=== PATIENT | male | born 1945 | race Caucasian/White ===

== ENCOUNTER 2018-05-11 21:44 | Emergency (ER) | payer MEDICARE, OTHER ==
[~2018-05-11] VITALS: Ht 185.4 cm; Wt 100.1 kg
[~2018-05-11 21:44] MED LIST: ASP81TEC PO; DIOVAN; FEXO1TAB49; HCTZ12.5T PO; LOSA25TA5 PO; NEBI5TAB8 PO; OMEG-12 PO; OMG1KC PO; PNT40TEC PO
[2018-05-11] MEDS ORDERED: L.E.T. SYRINGE 5 ML ONE (21:50)
[2018-05-11] MEDS ORDERED: L.E.T. SYRINGE 5 ML TOP ONE ×2 (22:00→22:45)
[2018-05-11] MEDS ORDERED: hydrALAZINE (APESOLINE) 20 MG/ML VIAL IV ONE (22:00)
--- NOTE | 2018-05-11 22:01 | ED EENT ---
History of Present Illness General Stated Complaint: L EAR BLEEDING Source: patient History of Present Illness Date Seen by Provider: May 11, 2018 Time Seen by Provider: 21:48 Initial Comments PT ARRIVES VIA POV FROM HOME C/O BLEEDING FROM LEFT EAR--BEGAN AROUND 2100 TONIGHT PT HAD A SKIN CANCER REMOVED FROM LEFT EAR AROUND [address] BLANCHARD. BEGAN HAVING SOME PAIN TO AREA EARLIER TONIGHT DENIES BUMPING THE EAR, ETC. PT STATES HE HAS NOT TAKEN HIS ASPIRIN FOR THE LAST WEEK PT HAS HISTORY OF HTN AND TAKES BP MEDICATIONS IN THE EVENING AND TOOK HIS NORMAL DOSE AROUND 2100 TONIGHT. NO HISTORY OF EXCESSIVE BLEEDING PCP: DR. DAVIS Allergies and Home Medications Allergies Coded Allergies: No Known Drug Allergies (Verified , 05/09/08) Home Medications Losartan Potassium 25 Mg Tablet, 25 MG PO HS, (Reported) Pelican-3/Dha/Epa/Fish Oil 1 Each Capsule.dr, 1 EACH PO DAILY, (Reported) Pantoprazole Sod 40 Mg Tab, 40 MG PO DAILY, (Reported) Patient Home Medication List Home Medication List Reviewed: Yes Review of Systems Review of Systems Constitutional: no symptoms reported Ears: See HPI Skin: see HPI Neurological: No Symptoms Reported Hematologic/Lymphatic: See HPI Past Sqqhyin-Rhlqzk-Wmbtzu Hx Patient Social History Recent Foreign Travel: No Contact w/Someone Who Travel: No Immunizations Up To Date Date of Influenza Vaccine: May 20, 2011 Past Medical History Surgeries: Yes (SKIN CANCER 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 BLANCHARD) Cardiac: Yes Hypertension Reproductive Disorders: No Cancer: Yes Skin Did You Recieve Any Treatments: Yes (SKIN CANCER REMOVED FROM LEFT EAR --DR. BLANCHARD) What Type of Treatment Did You: Surgical Intervention Physical Exam Vital Signs Vital Signs - First Documented 05/11/18 05/12/18 21:47 00:53 Temp 98.5 Pulse 88 Resp 19 B/P (MAP) 201/105 (137) Pulse Ox 99 Height, Weight, BMI Height: '" Weight: lbs. oz. kg; BMI Method:Stated General Appearance: WD/WN, no apparent distress Ears: bilateral ear other (LEFT EXTERNAL EAR WITH PROFUSE BLEEDING--HAS BLED THROUGH ALL DRESSINGS AND LARGE CLOTS HANGING FROM EAR. ) Neurologic/Psychiatric: moisture meter reader II-XII nml as tested, no motor/sensory deficits, alert, normal mood/affect, oriented x 3 Skin: normal color, warm/dry Procedures/Interventions Wound Location: Ears (LEFT EAR) Anesthesia: Lidocaine w/ Epi LET APPLIED TO WOUND, FOLLOWED BY 2% LIDOCAINE WITH EPI ( SMALL AMOUNT ) BLEEDING AREA CAUTERIZED WITH FINE TIP ELECTROCAUTERY, WITH ALL BLEEDING STOPPED. WOUND DRESSED WITH STERILE DRESSING NO FURTHER BLEEDING Progress/Results/Core Measures Results/Orders Lab Results Laboratory Tests Test 05/11/18 21:57 Range/Units White Blood Count 8.3 4.3-11.0 10^3/uL Red Blood Count 5.47 4.35-5.85 10^6/uL Hemoglobin 16.4 13.3-17.7 G/DL Hematocrit 45 40-54 % Mean Corpuscular Volume 83 80-99 FL Mean Corpuscular Hemoglobin 30 25-34 PG Mean Corpuscular Hemoglobin Concent 36 32-36 G/DL Red Cell Distribution Width 13.3 10.0-14.5 % Platelet Count 208 130-400 10^3/uL Mean Platelet Volume 9.7 7.4-10.4 FL Neutrophils (%) (Auto) 47 42-75 % Lymphocytes (%) (Auto) 38 12-44 % Monocytes (%) (Auto) 14 H 0-12 % Eosinophils (%) (Auto) 1 0-10 % Basophils (%) (Auto) 1 0-10 % Neutrophils # (Auto) 3.9 1.8-7.8 X 10^3 Lymphocytes # (Auto) 3.1 1.0-4.0 X 10^3 Monocytes # (Auto) 1.2 H 0.0-1.0 X 10^3 Eosinophils # (Auto) 0.0 0.0-0.3 10^3/uL Basophils # (Auto) 0.0 0.0-0.1 10^3/uL Prothrombin Time 12.0 L 12.2-14.7 SEC INR Comment 0.9 0.8-1.4 Activated Partial Thromboplast Time 28 24-35 SEC My Orders Orders - RAMESH RODRIGUEZ DO Saline Lock/Iv-Start (05/11/18 21:51) Hydralazine Injection (Apresoline Inject (05/11/18 22:00) Let Solution (Let Solution) (05/11/18 21:50) Let Solution (Let Solution) (05/11/18 22:00) Cbc With Automated Diff (05/11/18 22:02) Protime With Inr (05/11/18 22:02) Partial Thromboplastin Time (05/11/18 22:02) Saline Lock/Iv-Start (05/11/18 22:22) Ns Iv 1000 Ml (Sodium Chloride 0.9%) (05/11/18 22:22) Ns Iv 1000 Ml (Sodium Chloride 0.9%) (05/11/18 22:18) Let Solution (Let Solution) (05/11/18 22:45) Lidocaine 2% Pf 5 Ml (Xylocaine 2% Pf) (05/12/18 00:01) Lidocaine/Epi 2% 1:100,000 (Xylocaine/Ep (05/12/18 00:03) Wound Dressing-Ed (05/12/18 00:26) Clonidine Tablet (Catapres Tablet) (05/12/18 00:45) Clonidine Tablet (Catapres Tablet) (05/12/18 00:28) Medications Given in ED Current Medications Medications Dose Ordered Sig/Alana Route Start Time Stop Time Status Last Admin Dose Admin Clonidine HCl 0.1 mg ONCE ONCE PO 05/12/18 00:45 05/12/18 00:46 DC 05/12/18 00:32 0.1 MG Hydralazine HCl 10 mg ONCE ONCE IV 05/11/18 22:00 05/11/18 22:01 DC 05/11/18 22:01 10 MG Lidocaine/ Epinephrine 20 ml STK-MED ONCE .ROUTE 05/12/18 00:03 05/12/18 00:08 DC 05/12/18 00:09 20 ML Sodium Chloride 1,000 ml @ 0 mls/hr Q0M ONCE IV 05/11/18 22:22 05/11/18 22:23 DC 05/11/18 22:27 999 MLS/HR Tetracaine/ Epinephrine/ Lidocaine 1 ea ONCE ONCE TOP 05/11/18 22:00 05/11/18 22:01 DC 05/11/18 22:01 1 EA Tetracaine/ Epinephrine/ Lidocaine 1 ea ONCE ONCE TOP 05/11/18 22:45 05/11/18 22:46 DC 05/11/18 22:53 1 EA Vital Signs/I&O 05/11/18 05/12/18 21:47 00:53 Temp 98.5 Pulse 88 88 Resp 19 19 B/P (MAP) 201/105 (137) 161/98 (119) Pulse Ox 99 05/12/18 00:00 Intake Total 1000 ml Balance 1000 ml Progress Progress Note : Progress Note BP ON ARRIVAL > 200/100 --GIVEN HYDRALAZINE--SIGNIFICANT DROP IN BP TO 80'S/50'S --GIVEN FLUID BOLUS WITH QUICK RETURN TO NORMAL BP DIRECT PRESSURE AND LET APPLIED TO AREA, AND BLEEDING HAS STOPPED COMPLETELY WOUND CLEANSED WITH STERILE SALINE AND IS INTACT. ACTUALLY 2 WOUNDS ARE PRESENT. LARGER/SUTURED WOUND IS ACTUALLY SUPERIOR TO TRAGUS, WITH AN APPROXIMATELY 5 MM DIAMETER AREA THAT APPEARS TO BE A SHAVED EXCISION AREA, IN THE SUPERIOR ASPECT OF THE HELIX--THIS IS THE AREA THAT IS BLEEDING. PT WAS BEING DISMISSED, WAS NOTED THAT AREA HAD BEGAN TO BLEED AGAIN AND BLED THROUGH THICK DRESSING. AT THIS POINT, PRESSURE AND LET WERE AGAIN APPLIED, AND THEN THE AREA WAS CAUTERIZED--SEE PROCEDURE NOTE. BP IS BACK UP TO 185/100 PT GIVEN CLONIDINE BP DOWN TO 159/90 AT DISMISSAL NO BLEEDING AT TIME OF DISMISSAL . Departure Communication (Admissions) 2200--SPOKE WITH DR. BLANCHARD, AGREES WITH PLAN OF CARE. IF NEEDED, HE CAN SEE PT IN OFFICE TOMORROW, OTHERWISE IF NO FURTHER BLEEDING, HE WILL SEE PT FOR HIS ROUTINE FOLLOW UP APPOINTMENT Impression Primary Impression: Post-op bleeding Additional Impression: Uncontrolled hypertension Disposition: HOME, SELF-CARE Condition: Improved Departure-Patient Inst. Referrals: MANPREET BLANCHARD MD, FLOYD R MD (PCP/Family) Primary Care Physician Patient Instructions: Bleeding After Surgery, High Blood Pressure (DC) Add. Discharge Instructions: CONTINUE ALL YOUR POST OP INSTRUCTIONS FROM DR. BLANCHARD APPLY DIRECT PRESSURE IF BLEEDING RETURNS RETURN TO ER IF BLEEDING IS SEVERE FOLLOW UP WITH DR. BLANCHARD TOMORROW IF AREA CONTINUES TO BLEED, OTHERWISE KEEP YOUR REGULAR FOLLOW UP APPOINTMENT RAMESH RODRIGUEZ DO May 11, 2018 22:01
[2018-05-11 22:08] LABS: BASOPHILS % (AUTO) 1 % (0-10); EOSINOPHILS % (AUTO) 1 % (0-10); HEMATOCRIT 45 % (40-54); HEMOGLOBIN 16.4 G/DL (13.3-17.7); LYMPHOCYTES # (AUTO) 3.1 X 10^3 (1.0-4.0); LYMPHOCYTES % (AUTO) 38 % (12-44); MEAN CORPUSCULAR HEMOGLOBIN 30 PG (25-34); MEAN CORPUSCULAR HGB CONC 36 G/DL (32-36); MEAN CORPUSCULAR VOLUME 83 FL (80-99); MEAN PLATELET VOLUME 9.7 FL (7.4-10.4); MONOCYTES # (AUTO) 1.2 X 10^3 (0.0-1.0); MONOCYTES % (AUTO) 14 % (0-12); NEUTROPHILS # (AUTO) 3.9 X 10^3 (1.8-7.8); NEUTROPHILS % (AUTO) 47 % (42-75); PLATELET COUNT 208 10^3/uL (130-400); RED BLOOD COUNT 5.47 10^6/uL (4.35-5.85); RED CELL DISTRIBUTION WIDTH 13.3 % (10.0-14.5); WHITE BLOOD COUNT 8.3 10^3/uL (4.3-11.0)
[2018-05-11] MEDS ORDERED: NS IV 1000 ML 1,000 ML ONE (22:18)
[2018-05-11 22:21] LABS: INR 0.9 (0.8-1.4)
[2018-05-11] MEDS ORDERED: NS IV 1000 ML 1,000 ML IV ONE (22:22)
[2018-05-12] MEDS ORDERED: LIDOCAINE PF 2% 5 ML (XYLOCAINE) VIAL ONE (00:01)
[2018-05-12] MEDS ORDERED: LIDOCAINE/EPI 2% 1:100,00 (XYLOCAINE) 20 ML VIAL ONE (00:03)
[2018-05-12] MEDS ORDERED: cloNIDine 0.1 MG (CATAPRES) TAB ONE (00:28)
[2018-05-12] MEDS ORDERED: cloNIDine 0.1 MG (CATAPRES) TAB PO ONE (00:45)
[2018-05-12 00:53] VITALS: BP 161/98
== END 2018-05-12 00:55 | disposition home or self-care (01) ==
LOC: EDUNIT# 21:44 → ER 21:45
DX: H95.41 Postprocedural hemorrhage of ear and mastoid process following a procedure on the ear and mastoid process (principal); I10 Essential (primary) hypertension; Z85.828 Personal history of other malignant neoplasm of skin; Z98.890 Other specified postprocedural states
CPT/HCPCS: 36415; 85025; 85610; 85730; 96374

== ENCOUNTER 2018-06-13 09:35 | Outpatient (CLI) | payer MEDICARE, OTHER ==
[~2018-06-13] VITALS: Ht 185.4 cm; Wt 101.9 kg
[2018-06-13] MEDS ORDERED: HYDR25TA4 PO (09:52)
[2018-06-13] MEDS ORDERED: LOSA50TA7 PO (09:52)
[2018-06-13] MEDS ORDERED: PANT40TA3 PO (09:52)
[2018-06-13] MEDS ORDERED: KRIL1CAP22 PO (09:52)
[2018-06-13] MEDS ORDERED: CETI10TA17 PO (09:54)
[2018-06-13] MEDS ORDERED: ASPI-586 PO (09:54)
[2018-06-13 09:57] VITALS: BP 153/96
[2018-06-13 10:43] LABS: BASOPHILS # (AUTO) 0.1 10^3/uL (0.0-0.1); BASOPHILS % (AUTO) 1 % (0-10); EOSINOPHILS % (AUTO) 0 % (0-10); HEMATOCRIT 46 % (40-54); HEMOGLOBIN 15.4 G/DL (13.3-17.7); LYMPHOCYTES # (AUTO) 2.3 X 10^3 (1.0-4.0); LYMPHOCYTES % (AUTO) 29 % (12-44); MEAN CORPUSCULAR HEMOGLOBIN 28 PG (25-34); MEAN CORPUSCULAR HGB CONC 34 G/DL (32-36); MEAN CORPUSCULAR VOLUME 82 FL (80-99); MEAN PLATELET VOLUME 9.7 FL (7.4-10.4); MONOCYTES # (AUTO) 0.9 X 10^3 (0.0-1.0); MONOCYTES % (AUTO) 11 % (0-12); NEUTROPHILS # (AUTO) 4.6 X 10^3 (1.8-7.8); NEUTROPHILS % (AUTO) 59 % (42-75); PLATELET COUNT 218 10^3/uL (130-400); RED BLOOD COUNT 5.56 10^6/uL (4.35-5.85); RED CELL DISTRIBUTION WIDTH 12.9 % (10.0-14.5); WHITE BLOOD COUNT 7.8 10^3/uL (4.3-11.0)
[2018-06-13 10:55] LABS: PROTHROMBIN TIME PATIENT 13.2 SEC (12.2-14.7)
[2018-06-13 11:00] LABS: BUN/CREATININE RATIO 16; CALCIUM 9.8 MG/DL (8.5-10.1); CARBON DIOXIDE 29 MMOL/L (21-32); CHLORIDE 101 MMOL/L (98-107); CREATININE SERUM 1.01 MG/DL (0.60-1.30); GFR ESTIMATED > 60; GLUCOSE 99 MG/DL (70-105); POTASSIUM 3.3 MMOL/L (3.6-5.0); SODIUM 138 MMOL/L (135-145)
--- NOTE | 2018-06-13 12:48 | Diagnostic Imaging Report ---
Indication: Head and neck lesion, preop. Comparison: 03/20/2012 Findings: Some mild flattening of the hemidiaphragms unchanged. The heart size within normal limits. There is no vascular congestion, edema, pneumonia, effusion or pneumothorax. Impression: No acute-appearing abnormality. No change from prior. Dictated by: Dictated on workstation # [id number]
== END 2018-06-13 15:00 | disposition home or self-care (01) ==
LOC: PREOP 09:35
PROVIDERS: ATTEND Otolaryngology Otolaryngology/Facial Plastic Surgery
DX: Z01.810 Encounter for preprocedural cardiovascular examination (principal); Z01.811 Encounter for preprocedural respiratory examination; Z01.812 Encounter for preprocedural laboratory examination; Z11.2 Encounter for screening for other bacterial diseases; C44.219 Basal cell carcinoma of skin of left ear and external auricular canal
CPT/HCPCS: 36415; 71046; 80048; 85025; 85610; 87081; 93005

== ENCOUNTER 2018-06-23 06:34 | Day surgery (SDC) | payer MEDICARE, OTHER ==
[~2018-06-23] VITALS: Ht 185.4 cm; Wt 101.9 kg
[~2018-06-23 06:34] MED LIST changes: +ASPI-586 PO; +CETI10TA17 PO; +HYDR25TA4 PO; +KRIL1CAP22 PO; +LOSA50TA7 PO; +PANT40TA3 PO
[2018-06-23 07:00] VITALS: BP 181/109
[2018-06-23] MEDS ORDERED: LACTATED RINGERS 1,000 ML IV PRN (08:19)
[2018-06-23] MEDS ORDERED: fentaNYL INJECTION 100 MCG/2 ML AMP ONE (08:42)
[2018-06-23] MEDS ORDERED: MIDAZOLAM 2 MG/2 ML (VERSED) VIAL ONE (08:43)
[2018-06-23] MEDS ORDERED: SEVOFLURANE (ULTANE) 15 ML INHAL SOLN ONE ×7 (08:44→10:25)
[2018-06-23] MEDS ORDERED: LIDOCAINE PF 2% 5 ML (XYLOCAINE) VIAL ONE (08:44)
[2018-06-23] MEDS ORDERED: ROCURONIUM 10 MG/ML 5 ML SYRINGE IV ONE (08:44)
[2018-06-23] MEDS ORDERED: ONDANSETRON 4 MG/2 ML (SDV) Z0FRAN ONE (08:44)
[2018-06-23] MEDS ORDERED: proPOfol 200 MG/20 ML (DIPRIVAN) VIAL IV ONE (08:44)
[2018-06-23] MEDS ORDERED: MUPIROCIN 2% OINT 22 GM (BACTROBAN) TUBE ONE (09:23)
[2018-06-23] MEDS ORDERED: LIDOCAINE/EPI 1%-1:100,000 (XYLOCAINE) 20ML ONE (09:23)
--- NOTE | 2018-06-23 09:53 | Progress Note-Pre Operative ---
Pre-Operative Progress Note H&P Reviewed The H&P was reviewed, patient examined and no changes noted. Date Seen by Provider: Jun 23, 2018 Time Seen by Provider: 09:15 Date H&P Reviewed: Jun 23, 2018 Time H&P Reviewed: 09:15 Pre-Operative Diagnosis: Basal Cell Ca of Left Ear x 2 MANPREET BLANCHARD MD Jun 23, 2018 9:53 am
[2018-06-23] MEDS ORDERED: PHENYLEPHRINE 100 MCG/ML 10 ML (ANESTHESIA) SYR ONE (09:55)
--- NOTE | 2018-06-23 10:21 | Progress Note-Post Operative ---
Post-Operative Progess Note Surgeon (s)/Spiral Runner (s) Surgeon MANPREET BLANCHARD MD Spiral Runner n/a Pre-Operative Diagnosis Basal Cell Ca of Left Ear x 2 Post-Operative Diagnosis same Post-Op Procedure Note Date of Procedure: Jun 23, 2018 Name of Procedure Performed: Excision of Left Tragal Basal Cell cArcinoma with INtermediate repair Excision of Left Basal Cell Carcionma-anithelix Description & Findings Description and Findings: n/a Anesthesia Type get Estimated Blood Loss minimal Packing none. Specimen(s) collected/removed left tragal lesion for freozen left antihelix lesion for frozen MANPREET BLANCHARD MD Jun 23, 2018 10:21 am
[2018-06-23] MEDS ORDERED: ACETAMINOPHEN 325 MG TABLET PO PRN (10:30)
[2018-06-23] MEDS ORDERED: HYDROcodone/APAP 5 MG/325 MG (LORTAB) TAB PO PRN (10:30)
[2018-06-23] MEDS ORDERED: NEOSTIGMINE 1 MG/ML 5 ML SYRINGE ONE (10:32)
[2018-06-23] MEDS ORDERED: GLYCOPYRROLATE 0.2 MG/ML (ROBINUL) 2 ML VIAL ONE (10:32)
[2018-06-23] MEDS ORDERED: HYDROmorphone 2 MG/ML VIAL (DILAUDID) IV ONE (10:45)
[2018-06-23] MEDS ORDERED: ONDANSETRON 4 MG/2 ML (SDV) Z0FRAN IVP PRN (10:45)
[2018-06-23 11:45] VITALS: BP 143/84
[2018-06-23 12:15] VITALS: BP 138/102
[2018-06-23] MEDS ORDERED: CEPH-507 PO (12:21)
[2018-06-23] MEDS ORDERED: HYDR-3812 PO (12:21)
[2018-06-23 12:45] VITALS: BP 147/83
== END 2018-06-23 12:50 | disposition home or self-care (01) ==
LOC: SDC 06:34
PROVIDERS: ATTEND Otolaryngology Otolaryngology/Facial Plastic Surgery
DX: C44.219 Basal cell carcinoma of skin of left ear and external auricular canal (principal); L90.5 Scar conditions and fibrosis of skin; I10 Essential (primary) hypertension; K21.9 Gastro-esophageal reflux disease without esophagitis; G56.93 Unspecified mononeuropathy of bilateral upper limbs; Z79.82 Long term (current) use of aspirin; Z79.899 Other long term (current) drug therapy
CPT/HCPCS: 88304; 88305; 88331

== ENCOUNTER 2018-12-31 07:32 | Emergency (ER) | payer MEDICARE, OTHER ==
[~2018-12-31] VITALS: Ht 185.4 cm; Wt 102.1 kg
[~2018-12-31 07:32] MED LIST changes: +ASPI-983 PO; +ATOR10TA PO; +CEPH-507 PO; +HYDR-3812 PO; +LOSA50TA63 PO; -LOSA50TA7 PO
[2018-12-31 08:19] LABS: BASOPHILS % (AUTO) 0 % (0-10); EOSINOPHILS # (AUTO) 0.2 10^3/uL (0.0-0.3); EOSINOPHILS % (AUTO) 2 % (0-10); HEMATOCRIT 33 % (40-54); HEMOGLOBIN 10.5 G/DL (13.3-17.7); LYMPHOCYTES # (AUTO) 1.3 X 10^3 (1.0-4.0); LYMPHOCYTES % (AUTO) 12 % (12-44); MEAN CORPUSCULAR HEMOGLOBIN 28 PG (25-34); MEAN CORPUSCULAR HGB CONC 32 G/DL (32-36); MEAN CORPUSCULAR VOLUME 88 FL (80-99); MEAN PLATELET VOLUME 9.7 FL (7.4-10.4); MONOCYTES # (AUTO) 1.2 X 10^3 (0.0-1.0); MONOCYTES % (AUTO) 11 % (0-12); NEUTROPHILS # (AUTO) 8.8 X 10^3 (1.8-7.8); NEUTROPHILS % (AUTO) 76 % (42-75); PLATELET COUNT 246 10^3/uL (130-400); RED CELL DISTRIBUTION WIDTH 14.5 % (10.0-14.5); WHITE BLOOD COUNT 11.6 10^3/uL (4.3-11.0)
[2018-12-31 08:43] LABS: ALANINE AMINOTRANSFERASE 39 U/L (0-55); ALBUMIN 3.6 GM/DL (3.2-4.5); ALKALINE PHOSPHATASE 60 U/L (40-136); BILIRUBIN,TOTAL 0.6 MG/DL (0.1-1.0); BUN/CREATININE RATIO 18; CALCIUM 8.7 MG/DL (8.5-10.1); CARBON DIOXIDE 26 MMOL/L (21-32); CHLORIDE 103 MMOL/L (98-107); CREATININE SERUM 0.98 MG/DL (0.60-1.30); GFR ESTIMATED > 60; GLUCOSE 110 MG/DL (70-105); MAGNESIUM 1.8 MG/DL (1.8-2.4); POTASSIUM 3.7 MMOL/L (3.6-5.0); SODIUM 139 MMOL/L (135-145); TOTAL PROTEIN 5.9 GM/DL (6.4-8.2)
--- NOTE | 2018-12-31 08:58 | Diagnostic Imaging Report ---
INDICATION: Coronary artery disease and difficulty breathing. Comparison made with prior examination 12/20/2018 FINDINGS: Heart size is stable. There has been previous median sternotomy and coronary bypass graft. There are patchy bibasilar infiltrates left greater than right. There is no pleural effusion or pneumothorax. Mediastinum is unremarkable. IMPRESSION: Patchy bibasilar pulmonary infiltrates left greater than right. Dictated by: Dictated on workstation # [id number]
--- NOTE | 2018-12-31 09:05 | ED General ---
General Chief Complaint: Respiratory Problems Stated Complaint: SOA Nursing Triage Note: PT TO RM 5 BY WHEELCHAIR WITH COMPLAINT OF SOA AND CONGESTION. PT RECENTLY HAD DOUBLE BYPASS SURGERY ON 12/20/18, DISCHARGED ON 12/29/18. PT STATES HE HAS NASAL CONGESTION, COUGH, AND SOA. STATES HE WAS SEEN BY HOMEHEALTH YESTERDAY AND TOLD HER SOUNDED CONGESTED ON THE RIGHT LUNG. DENIES CHEST PAIN. Nursing Sepsis Screen: No Definite Risk Source of Information: Patient, Family Exam Limitations: No Limitations History of Present Illness Date Seen by Provider: Dec 31, 2018 Time Seen by Provider: 07:50 Initial Comments See history as above in nursing triage. Patient had cardiac bypass surgery on December 23 and was released from the hospital December 29. Today he complains of dyspnea and congestion. He has no history of pulmonary problems such as COPD. He denies chest pain. Home health reportedly had concerns about congestion on auscultation of the chest today. He has had some mild cough but no fever. Patient also has various areas of erythematous skin that he attributes to irritation from tape. He has a larger patch of tender, erythematous, blanching skin on the medial left thigh. Allergies and Home Medications Allergies Coded Allergies: No Known Drug Allergies (Unverified , 06/13/18) Home Medications Aspirin 81 Mg Tablet.dr, 81 MG PO DAILY Prescribed by: BETH ZUNIGA on 12/20/18 0756 Atorvastatin Calcium 10 Mg Tablet, 10 MG PO DAILY Prescribed by: BETH ZUNIGA on 12/20/18 0756 Azithromycin 250 Mg Tablet, 250 MG PO UD TAKE 2 TABLETS ON DAY ONE THEN TAKE 1 TABLET DAILY FOR FOUR MORE DAYS Prescribed by: LANI OAKLEY on 12/31/18 1038 Cefdinir 300 Mg Capsule, 300 MG PO BID Prescribed by: LANI OAKLEY on 12/31/18 1038 Cephalexin 500 Mg Capsule, 500 MG PO TID Prescribed by: NGUYEN MCMAHON on 06/23/18 1221 Cetirizine HCl 10 Mg Tablet, 10 MG PO DAILY, (Reported) Hydrochlorothiazide 25 Mg Tablet, 25 MG PO DAILY, (Reported) Hydrocodone/Acetaminophen 1 Each Tablet, 1-2 EACH PO Q4H PRN for PAIN-MODERATE Prescribed by: NGUYEN MCMAHON on 06/23/18 1221 Krill/Om-3/Dha/Epa/Phospho/Ast 1 Each Capsule, 1 EACH PO DAILY, (Reported) Losartan Potassium 50 Mg Tablet, 50 MG PO DAILY, (Reported) Pantoprazole Sodium 40 Mg Tablet.dr, 40 MG PO DAILY, (Reported) Patient Home Medication List Home Medication List Reviewed: Yes Review of Systems Review of Systems Constitutional: no symptoms reported EENTM: no symptoms reported Respiratory: see HPI Cardiovascular: see HPI Gastrointestinal: no symptoms reported Genitourinary: no symptoms reported Musculoskeletal: no symptoms reported Skin: see HPI Psychiatric/Neurological: No Symptoms Reported Hematologic/Lymphatic: No Symptoms Reported Past Uvcvvtc-Tlkrfv-Izqqva Hx Past Med/Social Hx: Reviewed Nursing Past Med/Soc Hx Patient Social History Alcohol Use: Denies Use Recreational Drug Use: No Smoking Status: Former Smoker Type Used: Cigars Recent Foreign Travel: No Contact w/Someone Who Travel: No Recent Infectious Disease Expo: No Recent Hopitalizations: Yes (OPEN HEART 12/20/18) Immunizations Up To Date Tetanus Booster (TDap): Less than 5yrs Date of Pneumonia Vaccine: Mar 15, 2012 Date of Influenza Vaccine: Apr 27, 2018 Seasonal Allergies Seasonal Allergies: No Past Medical History Surgeries: Yes (SKIN CANCER 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 BLANCHARD) CABG, Vasectomy Respiratory: No Cardiac: Yes (DOUBLE BYPASS) Hypertension Neurological: No Reproductive Disorders: No Sexually Transmitted Disease: No HIV/AIDS: No Genitourinary: No Gastrointestinal: Yes Gastroesophageal Reflux Musculoskeletal: No Endocrine: No Loss of Vision: Bilateral Cancer: Yes Skin Did You Recieve Any Treatments: Yes What Type of Treatment Did You: Surgical Intervention Psychosocial: No Integumentary: No Blood Disorders: No Adverse Reaction/Blood Tranf: No (N/A) Family Medical History No Pertinent Family Hx Physical Exam Vital Signs Vital Signs - First Documented 12/31/18 07:32 Temp 98.6 Pulse 78 Resp 18 B/P (MAP) 176/77 (110) Pulse Ox 97 O2 Delivery Room Air Capillary Refill : Less Than 3 Seconds Height, Weight, BMI Height: 6'1.00" Weight: 225lbs. 11.0oz. 102.000476la; 29.6 BMI Method:Stated General Appearance: No Apparent Distress, WD/WN HEENT: PERRL/EOMI, Normal ENT Inspection Neck: Normal Inspection Respiratory: Lungs Clear, No Accessory Muscle Use, No Respiratory Distress, Decreased Breath Sounds Cardiovascular: Regular Rate, Rhythm, No Edema Gastrointestinal: Non Tender, Soft Extremity: Normal Inspection, Pedal Edema Neurologic/Psychiatric: Alert, Oriented x3, No Motor/Sensory Deficits, Normal Mood/Affect, observatory director II-XII Norm as Tested Skin: Warm/Dry, Other (dressings over the chest intact. There is serous drainage on the dressings. Skin demonstrates patches of erythematous skin, especially near areas of tape. There is a larger erythematous, blanching, no warm, and tender skin on the medial left thigh.) Progress/Results/Core Measures Suspected Sepsis Recent Fever Within 48 Hours: No Infection Criteria Present: None New/Unexplained Altered Menta: No Sepsis Screen: No Definite Risk SIRS Temperature:98.6 Pulse: 78 Respiratory Rate: 18 Laboratory Tests 12/31/18 08:12: White Blood Count 11.6H Blood Pressure 176 /77 Mean: 110 Laboratory Tests 12/31/18 08:12: Creatinine 0.98, Platelet Count 246, Total Bilirubin 0.6 Results/Orders Lab Results Laboratory Tests Test 12/31/18 08:12 Range/Units White Blood Count 11.6 H 4.3-11.0 10^3/uL Red Blood Count 3.76 L 4.35-5.85 10^6/uL Hemoglobin 10.5 L 13.3-17.7 G/DL Hematocrit 33 L 40-54 % Mean Corpuscular Volume 88 80-99 FL Mean Corpuscular Hemoglobin 28 25-34 PG Mean Corpuscular Hemoglobin Concent 32 32-36 G/DL Red Cell Distribution Width 14.5 10.0-14.5 % Platelet Count 246 130-400 10^3/uL Mean Platelet Volume 9.7 7.4-10.4 FL Neutrophils (%) (Auto) 76 H 42-75 % Lymphocytes (%) (Auto) 12 12-44 % Monocytes (%) (Auto) 11 0-12 % Eosinophils (%) (Auto) 2 0-10 % Basophils (%) (Auto) 0 0-10 % Neutrophils # (Auto) 8.8 H 1.8-7.8 X 10^3 Lymphocytes # (Auto) 1.3 1.0-4.0 X 10^3 Monocytes # (Auto) 1.2 H 0.0-1.0 X 10^3 Eosinophils # (Auto) 0.2 0.0-0.3 10^3/uL Basophils # (Auto) 0.0 0.0-0.1 10^3/uL Sodium Level 139 135-145 MMOL/L Potassium Level 3.7 3.6-5.0 MMOL/L Chloride Level 103 98-107 MMOL/L Carbon Dioxide Level 26 21-32 MMOL/L Anion Gap 10 5-14 MMOL/L Blood Urea Nitrogen 18 7-18 MG/DL Creatinine 0.98 0.60-1.30 MG/DL Estimat Glomerular Filtration Rate > 60 BUN/Creatinine Ratio 18 Glucose Level 110 H 70-105 MG/DL Calcium Level 8.7 8.5-10.1 MG/DL Corrected Calcium 9.0 8.5-10.1 MG/DL Magnesium Level 1.8 1.8-2.4 MG/DL Total Bilirubin 0.6 0.1-1.0 MG/DL Aspartate Amino Transf (AST/SGOT) 23 5-34 U/L Alanine Aminotransferase (ALT/SGPT) 39 0-55 U/L Alkaline Phosphatase 60 40-136 U/L C-Reactive Protein High Sensitivity 3.34 H 0.00-0.50 MG/DL B-Type Natriuretic Peptide 717.5 H <100.0 PG/ML Total Protein 5.9 L 6.4-8.2 GM/DL Albumin 3.6 3.2-4.5 GM/DL My Orders Orders - LANI UREÑA MD BNP (12/31/18 08:00) Cbc With Automated Diff (12/31/18 08:00) Comprehensive Metabolic Panel (12/31/18 08:00) Hs C Reactive Protein (12/31/18 08:00) Magnesium (12/31/18 08:00) Ed Iv/Invasive Line Start (12/31/18 08:00) Ekg Tracing (12/31/18 08:00) Chest Pa/Lat (2 View) (12/31/18 08:00) Ceftriaxone For Iv Use (Rocephin For I (12/31/18 10:30) Furosemide Injection (Lasix Injection) (12/31/18 10:30) Potassium Chloride (Tablet) (Klor Con Ta (12/31/18 10:30) Vital Signs/I&O Capillary Refill : Less Than 3 Seconds Blood Pressure Mean: 110 Progress Note : Progress Note Patient had a moderately elevated BNP. He may have a little bit of fluid overload. Chest x-ray did not reveal overt failure. Patient was feeling better through the course of his ER stay without any particular treatment. Because of elevated BNP, a dose of Lasix IV accompanied by an oral dose of potassium was administered. Patient had not taken his Lasix at this morning. There was also some suggestion of infiltrate on the chest x-ray. Antibiotic therapy was started with Rocephin. Return precautions were discussed with patient and his family. Antibiotic therapy should also help with the erythema on the left thigh if he has cellulitis developing in that area. ECG Initial ECG Impression Date: Dec 31, 2018 Initial ECG Impression Time: 08:49 Initial ECG Rate: 73 Initial ECG Rhythm: A Fib/Flutter Comment Low voltage atrial fibrillation with no ST elevation or depression. No significant axis deviation. Diagnostic Imaging Diagonstic Imaging: Xray Plain Films/CT/US/NM/MRI: chest Comments Chest x-ray viewed by me and report reviewed. See report below: NAME: CORINA MURRY [facility] REC#: [id number] PT STATUS: REG ER : 1945 PHYSICIAN: LANI UREÑA MD ADMIT DATE: 12/31/18/ER Draft Date of Exam:12/31/18 CHEST PA/LAT (2 VIEW) INDICATION: Coronary artery disease and difficulty breathing. Comparison made with prior examination 12/20/2018 FINDINGS: Heart size is stable. There has been previous median sternotomy and coronary bypass graft. There are patchy bibasilar infiltrates left greater than right. There is no pleural effusion or pneumothorax. Mediastinum is unremarkable. IMPRESSION: Patchy bibasilar pulmonary infiltrates left greater than right. Dictated on workstation # [id number] Dict: 12/31/18 0853 Trans: 12/31/18 0857 [id number] Interpreted by: IVONNE KLEIN MD Departure Impression Primary Impression: Bilateral pneumonia Qualified Codes: J18.1 - Lobar pneumonia, unspecified organism Additional Impressions: Dyspnea Qualified Codes: R06.00 - Dyspnea, unspecified Elevated brain natriuretic peptide (BNP) level Disposition: 01 HOME, SELF-CARE Condition: Improved Departure-Patient Inst. Referrals: SUJATHA DAVIS MD (PCP/Family) Primary Care Physician Patient Instructions: Pneumonia, Adult (DC) Add. Discharge Instructions: Complete your antibiotics as prescribed. The IV dose of Lasix (furosemide) you received in the ER replaces your morning pill. You may take your other morning medications when you get home. Follow-up with your primary care provider and your surgeon next week. Return to the emergency room if you have worsening symptoms, especially if you develop fevers over 100 or worsening shortness of breath. Monitor the area of redness on your left thigh. Return to care if it is not improving with antibiotics. All discharge instructions reviewed with patient and/or family. Voiced understanding. Scripts Azithromycin (Azithromycin) 250 Mg Tablet 250 MG PO UD, #6 TAB TAKE 2 TABLETS ON DAY ONE THEN TAKE 1 TABLET DAILY FOR FOUR MORE DAYS Prov: LANI UREÑA MD 12/31/18 Cefdinir (Cefdinir) 300 Mg Capsule 300 MG PO BID, #20 CAP Prov: LANI UREÑA MD 12/31/18 Copy Copies To 1: SUJATHA DAVIS MD Copies To 2: BETH ZUNIGA MD, JOSHUA T MD Dec 31, 2018 09:05
[2018-12-31] MEDS ORDERED: cefTRIAXone FOR IV USE 1,000 MG in WATER (STERILE) FOR INJECTION 10 ML IV ONE (10:30)
[2018-12-31] MEDS ORDERED: FUROSEMIDE 40 MG/4 ML INJ (LASIX) IVP ONE (10:30)
[2018-12-31] MEDS ORDERED: KCL 10 MEQ TAB (MICRO K) PO ONE (10:30)
[2018-12-31] MEDS ORDERED: AZIT250T12 PO (10:38)
[2018-12-31] MEDS ORDERED: CEFD300C3 PO (10:38)
[2018-12-31 11:02] VITALS: BP 166/84
== END 2018-12-31 11:07 | disposition home or self-care (01) ==
LOC: EDUNIT# 07:41 → ER 07:42
DX: J18.9 Pneumonia, unspecified organism (principal); R79.89 Other specified abnormal findings of blood chemistry; I10 Essential (primary) hypertension; K21.9 Gastro-esophageal reflux disease without esophagitis; Z85.828 Personal history of other malignant neoplasm of skin; Z95.1 Presence of aortocoronary bypass graft; Z79.82 Long term (current) use of aspirin; Z87.891 Personal history of nicotine dependence; Z98.52 Vasectomy status
CPT/HCPCS: 36415; 71046; 80053; 83735; 83880; 85025; 86141; 93005; 96374; 96375

== ENCOUNTER 2019-01-09 07:16 | Inpatient (IN) | payer MEDICARE, OTHER ==
[2019-01-09] VITALS (8 sets, daily range): BP systolic 115–208; BP diastolic 76–111
[~2019-01-09] VITALS: Ht 185.4 cm; Wt 99.4 kg
[~2019-01-09 07:16] MED LIST changes: +AZIT250T12 PO; +CEFD300C3 PO
--- OUTSIDE RECORDS SUMMARY | 2019-01-09 07:21 | XMS REPORT | Continuity of Care Document ---
Author Organization Unknown Address Unknown Allergies Active Description Code Type Severity Reaction Onset Reported/Identified Relationship to Patient Clinical Status Yes No Known Drug Allergies [id number] Drug Allergy Unknown N/A 06/13/2018 Medications There is no data. 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 05/16/2018 JENNIFER DO, RAMESH K Ot Z98.890 OTHER SPECIFIED POSTPROCEDURAL STATES 05/18/2018 JENNIFER DO, RAMESH K Ot H95.41 POSTPROCEDURAL HEMORRHAGE OF EAR/MASTD F 05/18/2018 JENNIFER DO, RAMESH K Ot I10 ESSENTIAL (PRIMARY) HYPERTENSION 05/18/2018 JENNIFER DO, RAMESH K Ot 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 05/18/2018 JENNIFER DO, RAMESH K Ot Z98.890 OTHER SPECIFIED POSTPROCEDURAL STATES 06/13/2018 SANTO PITTS, MANPREET Garcia Ot C44.219 BASAL CELL CARCINOMA SKIN/ LEFT EAR AND 06/13/2018 SANTO PITTS, MANPREET Garcia Ot Z01.810 ENCOUNTER FOR PREPROCEDURAL CARDIOVASCUL 06/13/2018 SANTO PITTS, MANPREET Garcia Ot Z01.811 ENCOUNTER FOR PREPROCEDURAL RESPIRATORY 06/13/2018 MANPREET BLANCHARD MD Ot Z01.812 ENCOUNTER FOR PREPROCEDURAL LABORATORY E 06/13/2018 MANPREET BLANCHARD MD Ot Z11.2 ENCOUNTER FOR SCREENING FOR OTHER BACTER 06/23/2018 MANPREET BLANCHARD MD, Ot C44.219 BASAL CELL CARCINOMA SKIN/ LEFT EAR AND 06/23/2018 MANPREET BLANCHARD MD Ot 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 06/23/2018 MANPREET BLANCHARD MD Ot I10 ESSENTIAL (PRIMARY) HYPERTENSION 06/23/2018 MANPREET BLANCHARD MD Ot K21.9 GASTRO-ESOPHAGEAL REFLUX DISEASE WITHOUT 06/23/2018 MANPREET BLANCHARD MD Ot L90.5 SCAR CONDITIONS AND FIBROSIS OF SKIN 06/23/2018 MANPREET BLANCHARD MD Ot Z79.82 DIRECTOR ASSET (CURRENT) USE OF ASPIRIN 06/23/2018 MANPREET BLANCHARD MD Ot Z79.899 OTHER DIRECTOR ASSET (CURRENT) DRUG THERAPY 06/27/2018 MANPREET BLANCHARD MD, Ot C44.219 BASAL CELL CARCINOMA SKIN/ LEFT EAR AND 06/27/2018 MANPREET BLANCHARD MD Ot Z01.810 ENCOUNTER FOR PREPROCEDURAL CARDIOVASCUL 06/27/2018 MANPREET BLANCHARD MD Ot Z01.811 ENCOUNTER FOR PREPROCEDURAL RESPIRATORY 06/27/2018 MANPREET BLANCHARD MD Ot Z01.812 ENCOUNTER FOR PREPROCEDURAL LABORATORY E 06/27/2018 MANPREET BLANCHARD MD Ot Z11.2 ENCOUNTER FOR SCREENING FOR OTHER BACTER 06/27/2018 MANPREET BLANCHARD MD, Ot C44.219 BASAL CELL CARCINOMA SKIN/ LEFT EAR AND 06/27/2018 MANPREET BLANCHARD MD Ot 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 06/27/2018 MANPREET BLANCHARD MD Ot I10 ESSENTIAL (PRIMARY) HYPERTENSION 06/27/2018 MANPREET BLANCHARD MD Ot K21.9 GASTRO-ESOPHAGEAL REFLUX DISEASE WITHOUT 06/27/2018 MANPREET BLANCHARD MD, Ot L90.5 SCAR CONDITIONS AND FIBROSIS OF SKIN 06/27/2018 MANPREET BLANCHARD MD Ot Z79.82 DIRECTOR ASSET (CURRENT) USE OF ASPIRIN 06/27/2018 MANPREET BLANCHARD MD Ot Z79.899 OTHER GROUP HOME (CURRENT) DRUG THERAPY 06/30/2018 MANPREET BLANCHARD MD Ot C44.219 BASAL CELL CARCINOMA SKIN/ LEFT EAR AND 06/30/2018 MANPREET BLANCHARD MD Ot 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 06/30/2018 MANPREET BLANCHARD MD Ot I10 ESSENTIAL (PRIMARY) HYPERTENSION 06/30/2018 MANPREET BLANCHARD MD Ot K21.9 GASTRO-ESOPHAGEAL REFLUX DISEASE WITHOUT 06/30/2018 MANPREET BLANCHARD MD Ot L90.5 SCAR CONDITIONS AND FIBROSIS OF SKIN 06/30/2018 MANPREET BLANCHARD MD Ot Z79.82 DIRECTOR ASSET (CURRENT) USE OF ASPIRIN 06/30/2018 MANPREET BLANCHARD MD Ot Z79.899 OTHER DIRECTOR ASSET (CURRENT) DRUG THERAPY 12/20/2018 BETH ZUNIGA MD Ot E78.5 HYPERLIPIDEMIA, UNSPECIFIED 12/20/2018 BETH ZUNIGA MD Ot I10 ESSENTIAL (PRIMARY) HYPERTENSION 12/20/2018 BETH ZUNIGA MD Ot I21.4 NON-ST ELEVATION (NSTEMI) MYOCARDIAL INF 12/20/2018 BETH ZUNIGA MD Ot I25.10 ATHSCL HEART DISEASE OF [place] CORONARY 12/20/2018 BETH ZUNIGA MD Ot K21.9 GASTRO-ESOPHAGEAL REFLUX DISEASE WITHOUT 12/20/2018 BETH ZUNIGA MD Ot Z79.82 GROUP HOME (CURRENT) USE OF ASPIRIN 12/20/2018 BETH ZUNIGA MD Ot Z79.899 OTHER GROUP HOME (CURRENT) DRUG THERAPY 12/22/2018 BETH ZUNIGA MD Ot E78.5 HYPERLIPIDEMIA, UNSPECIFIED 12/22/2018 BETH ZUNIGA MD Ot I10 ESSENTIAL (PRIMARY) HYPERTENSION 12/22/2018 BETH ZUNIGA MD Ot I21.4 NON-ST ELEVATION (NSTEMI) MYOCARDIAL INF 12/22/2018 BETH ZUNIGA MD Ot I25.10 ATHSCL HEART DISEASE OF [place] CORONARY 12/22/2018 BETH ZUNIGA MD Ot K21.9 GASTRO-ESOPHAGEAL REFLUX DISEASE WITHOUT 12/22/2018 BETH ZUNIGA MD Ot Z79.82 GROUP HOME (CURRENT) USE OF ASPIRIN 12/22/2018 BETH ZUNIGA MD Ot Z79.899 OTHER DIRECTOR ASSET (CURRENT) DRUG THERAPY 12/23/2018 BETH ZUNIGA MD Ot E78.5 HYPERLIPIDEMIA, UNSPECIFIED 12/23/2018 BETH ZUNIGA MD Ot I10 ESSENTIAL (PRIMARY) HYPERTENSION 12/23/2018 BETH ZUNIGA MD, Ot I21.4 NON-ST ELEVATION (NSTEMI) MYOCARDIAL INF 12/23/2018 BETH ZUNIGA MD, Ot I25.10 ATHSCL HEART DISEASE OF [place] CORONARY 12/23/2018 BETH ZUNIGA MD, Ot K21.9 GASTRO-ESOPHAGEAL REFLUX DISEASE WITHOUT 12/23/2018 BETH ZUNIGA MD, Ot Z79.82 DIRECTOR ASSET (CURRENT) USE OF ASPIRIN 12/23/2018 BETH ZUNIGA MD, Ot Z79.899 OTHER GROUP HOME (CURRENT) DRUG THERAPY 12/31/2018 LANI UREÑA MD, Ot I10 ESSENTIAL (PRIMARY) HYPERTENSION 12/31/2018 LANI UREÑA MD, Ot J18.9 PNEUMONIA, UNSPECIFIED ORGANISM 12/31/2018 LANI UREÑA MD, Ot K21.9 GASTRO-ESOPHAGEAL REFLUX DISEASE WITHOUT 12/31/2018 LANI UREÑA MD Ot R06.00 DYSPNEA, UNSPECIFIED 12/31/2018 LANI UREÑA MD Ot R79.89 OTHER SPECIFIED ABNORMAL FINDINGS OF BLO 12/31/2018 LANI UREÑA MD, Ot Z79.82 DIRECTOR ASSET (CURRENT) USE OF ASPIRIN 12/31/2018 LANI UREÑA MD, Ot 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 12/31/2018 LANI UREÑA MD, Ot Z87.891 PERSONAL HISTORY OF NICOTINE DEPENDENCE 12/31/2018 LANI UREÑA MD Ot Z95.1 PRESENCE OF AORTOCORONARY BYPASS GRAFT 12/31/2018 LANI UREÑA MD, Ot Z98.52 VASECTOMY STATUS 01/04/2019 LANI UREÑA MD, Ot I10 ESSENTIAL (PRIMARY) HYPERTENSION 01/04/2019 LANI UREÑA MD, Ot J18.9 PNEUMONIA, UNSPECIFIED ORGANISM 01/04/2019 LANI UREÑA MD Ot K21.9 GASTRO-ESOPHAGEAL REFLUX DISEASE WITHOUT 01/04/2019 LANI UREÑA MD Ot R06.00 DYSPNEA, UNSPECIFIED 01/04/2019 LANI UREÑA MD Ot R79.89 OTHER SPECIFIED ABNORMAL FINDINGS OF BLO 01/04/2019 LANI UREÑA MD Ot Z79.82 DIRECTOR ASSET (CURRENT) USE OF ASPIRIN 01/04/2019 LANI UREÑA MD Ot 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 01/04/2019 LANI UREÑA MD Ot Z87.891 PERSONAL HISTORY OF NICOTINE DEPENDENCE 01/04/2019 LANI UREÑA MD Ot Z95.1 PRESENCE OF AORTOCORONARY BYPASS GRAFT 01/04/2019 LANI UREÑA MD, Ot Z98.52 VASECTOMY STATUS 01/06/2019 LANI UREÑA MD, Ot I10 ESSENTIAL (PRIMARY) HYPERTENSION 01/06/2019 LANI UREÑA MD, Ot J18.9 PNEUMONIA, UNSPECIFIED ORGANISM 01/06/2019 LANI UREÑA MD Ot K21.9 GASTRO-ESOPHAGEAL REFLUX DISEASE WITHOUT 01/06/2019 LANI UREÑA MD Ot R06.00 DYSPNEA, UNSPECIFIED 01/06/2019 LANI UREÑA MD Ot R79.89 OTHER SPECIFIED ABNORMAL FINDINGS OF BLO 01/06/2019 LANI UREÑA MD Ot Z79.82 GROUP HOME (CURRENT) USE OF ASPIRIN 01/06/2019 LANI UREÑA MD Ot 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 01/06/2019 LANI UREÑA MD Ot Z87.891 PERSONAL HISTORY OF NICOTINE DEPENDENCE 01/06/2019 LANI UREÑA MD Ot Z95.1 PRESENCE OF AORTOCORONARY BYPASS GRAFT 01/06/2019 LANI UREÑA MD Ot Z98.52 VASECTOMY STATUS Procedures Code Description Performed By Performed On [id number] MEASURE OF CARDIAC SAMPL PRESSURE, L H 12/20/2018 [id number] FLUOROSCOPY OF MULT COR ART USING L OSM 12/20/2018 [id number] FLUOROSCOPY OF LEFT HEART USING LOW OSMO 12/20/2018 [id number] FLUOROSCOPY OF THORACIC AORTA USING LOW 12/20/2018 Results Test Result Range Complete blood count (CBC) with automated white blood cell (WBC) differential - 05/11/18 21:57 Blood leukocytes automated count (number/volume) 8.3 10*3/uL 4.3-11.0 Blood erythrocytes automated count (number/volume) 5.47 10*6/uL 4.35-5.85 Venous blood hemoglobin measurement (mass/volume) 16.4 g/dL 13.3-17.7 Blood hematocrit (volume fraction) 45 % 40-54 Automated erythrocyte mean corpuscular volume 83 [foz_us] 80-99 Automated erythrocyte mean corpuscular hemoglobin (mass per erythrocyte) 30 pg 25-34 Automated erythrocyte mean corpuscular hemoglobin concentration measurement (mass/volume) 36 g/dL 32-36 Automated erythrocyte distribution width ratio 13.3 % 10.0- 14.5 Automated blood platelet count (count/volume) 208 10*3/uL 130-400 Automated blood platelet mean volume measurement 9.7 [foz_us] 7.4-10.4 Automated blood neutrophils/100 leukocytes 47 % 42-75 Automated blood lymphocytes/100 leukocytes 38 % 12-44 Blood monocytes/100 leukocytes 14 % 0-12 Automated blood eosinophils/100 leukocytes 1 % 0-10 Automated blood basophils/100 leukocytes 1 % 0-10 Blood neutrophils automated count (number/volume) 3.9 10*3 1.8-7.8 Blood lymphocytes automated count (number/volume) 3.1 10*3 1.0-4.0 Blood monocytes automated count (number/volume) 1.2 10*3 0.0- 1.0 Automated eosinophil count 0.0 10*3/uL 0.0-0.3 Automated blood basophil count (count/volume) 0.0 10*3/uL 0.0-0.1 PT panel in platelet poor plasma by coagulation assay - 05/11/18 21:57 Prothrombin time (PT) in platelet poor plasma by coagulation assay 12.0 s 12.2-14.7 INR in platelet poor plasma or blood by coagulation assay 0.9 0.8-1.4 Activated partial thromboplastin time (aPTT) in platelet poor plasma bycoagulation assay - 05/11/18 21:57 Activated partial thromboplastin time (aPTT) in platelet poor plasma bycoagulation assay 28 s 24-35 Complete blood count (CBC) with automated white blood cell (WBC) differential - 06/13/18 10:15 Blood leukocytes automated count (number/volume) 7.8 10*3/uL 4.3-11.0 Blood erythrocytes automated count (number/volume) 5.56 10*6/uL 4.35-5.85 Venous blood hemoglobin measurement (mass/volume) 15.4 g/dL 13.3-17.7 Blood hematocrit (volume fraction) 46 % 40-54 Automated erythrocyte mean corpuscular volume 82 [foz_us] 80-99 Automated erythrocyte mean corpuscular hemoglobin (mass per erythrocyte) 28 pg 25-34 Automated erythrocyte mean corpuscular hemoglobin concentration measurement (mass/volume) 34 g/dL 32-36 Automated erythrocyte distribution width ratio 12.9 % 10.0- 14.5 Automated blood platelet count (count/volume) 218 10*3/uL 130-400 Automated blood platelet mean volume measurement 9.7 [foz_us] 7.4-10.4 Automated blood neutrophils/100 leukocytes 59 % 42-75 Automated blood lymphocytes/100 leukocytes 29 % 12-44 Blood monocytes/100 leukocytes 11 % 0-12 Automated blood eosinophils/100 leukocytes 0 % 0-10 Automated blood basophils/100 leukocytes 1 % 0-10 Blood neutrophils automated count (number/volume) 4.6 10*3 1.8-7.8 Blood lymphocytes automated count (number/volume) 2.3 10*3 1.0-4.0 Blood monocytes automated count (number/volume) 0.9 10*3 0.0- 1.0 Automated eosinophil count 0.0 10*3/uL 0.0-0.3 Automated blood basophil count (count/volume) 0.1 10*3/uL 0.0-0.1 PT panel in platelet poor plasma by coagulation assay - 06/13/18 10:15 Prothrombin time (PT) in platelet poor plasma by coagulation assay 13.2 s 12.2-14.7 INR in platelet poor plasma or blood by coagulation assay 1.0 0.8-1.4 Methicillin resistant Staphylococcus aureus (MRSA) screening culture - 06/13/18 10:15 Methicillin resistant Staphylococcus aureus (MRSA) screening culture NEG NRG Complete blood count (CBC) with automated white blood cell (WBC) differential - 12/20/18 06:25 Blood leukocytes automated count (number/volume) 10.4 10*3/uL 4.3-11.0 Blood erythrocytes automated count (number/volume) 5.06 10*6/uL 4.35-5.85 Venous blood hemoglobin measurement (mass/volume) 14.4 g/dL 13.3-17.7 Blood hematocrit (volume fraction) 42 % 40-54 Automated erythrocyte mean corpuscular volume 83 [foz_us] 80-99 Automated erythrocyte mean corpuscular hemoglobin (mass per erythrocyte) 29 pg 25-34 Automated erythrocyte mean corpuscular hemoglobin concentration measurement (mass/volume) 34 g/dL 32-36 Automated erythrocyte distribution width ratio 13.5 % 10.0- 14.5 Automated blood platelet count (count/volume) 195 10*3/uL 130-400 Automated blood platelet mean volume measurement 9.5 [foz_us] 7.4-10.4 Automated blood neutrophils/100 leukocytes 75 % 42-75 Automated blood lymphocytes/100 leukocytes 13 % 12-44 Blood monocytes/100 leukocytes 11 % 0-12 Automated blood eosinophils/100 leukocytes 1 % 0-10 Automated blood basophils/100 leukocytes 0 % 0-10 Blood neutrophils automated count (number/volume) 7.8 10*3 1.8-7.8 Blood lymphocytes automated count (number/volume) 1.3 10*3 1.0-4.0 Blood monocytes automated count (number/volume) 1.1 10*3 0.0- 1.0 Automated eosinophil count 0.1 10*3/uL 0.0-0.3 Automated blood basophil count (count/volume) 0.0 10*3/uL 0.0-0.1 PT panel in platelet poor plasma by coagulation assay - 12/20/18 06:25 Prothrombin time (PT) in platelet poor plasma by coagulation assay 13.1 s 12.2-14.7 INR in platelet poor plasma or blood by coagulation assay 1.0 0.8-1.4 Activated partial thromboplastin time (aPTT) in platelet poor plasma bycoagulation assay - 12/20/18 06:25 Activated partial thromboplastin time (aPTT) in platelet poor plasma bycoagulation assay 34 s 24-35 Fibrin D-dimer FEU measurement in platelet poor plasma (mass/volume) - 12/20/18 06:25 Fibrin D-dimer FEU measurement in platelet poor plasma (mass/volume) 0.58 ug/mL 0.00-0.49 Comprehensive metabolic panel - 12/20/18 06:25 Serum or plasma sodium measurement (moles/volume) 138 mmol/L 135-145 Serum or plasma potassium measurement (moles/volume) 3.5 mmol/L 3.6-5.0 Serum or plasma chloride measurement (moles/volume) 100 mmol/L 98-107 Carbon dioxide 28 mmol/L 21-32 Serum or plasma anion gap determination (moles/volume) 10 mmol/L 5-14 Serum or plasma urea nitrogen measurement (mass/volume) 15 mg/dL 7-18 Serum or plasma creatinine measurement (mass/volume) 1.09 mg/dL 0.60-1.30 Serum or plasma urea nitrogen/creatinine mass ratio 14 NRG Serum or plasma creatinine measurement with calculation of estimated glomerular filtration rate > NRG Serum or plasma glucose measurement (mass/volume) 148 mg/dL 70-105 Serum or plasma calcium measurement (mass/volume) 9.6 mg/dL 8.5-10.1 Serum or plasma total bilirubin measurement (mass/volume) 0.9 mg/dL 0.1-1.0 Serum or plasma alkaline phosphatase measurement (enzymatic activity/volume) 59 U/L 40-136 Serum or plasma aspartate aminotransferase measurement (enzymatic activity/volume) 34 U/L 5-34 Serum or plasma alanine aminotransferase measurement (enzymatic activity/volume) 22 U/L 0-55 Serum or plasma protein measurement (mass/volume) 7.0 g/dL 6.4-8.2 Serum or plasma albumin measurement (mass/volume) 4.2 g/dL 3.2-4.5 CALCIUM CORRECTED 9.4 mg/dL 8.5-10.1 Magnesium - 12/20/18 06:25 Magnesium 1.8 mg/dL 1.8-2.4 Serum or plasma troponin i.cardiac measurement (mass/volume) - 12/20/18 06:25 Serum or plasma troponin i.cardiac measurement (mass/volume) 5.207 ng/mL <0.028 Myoglobin, serum - 12/20/18 06:25 Myoglobin, serum 102.8 ng/mL 10.0-92.0 Serum or plasma lithium measurement (moles/volume) - 12/20/18 06:25 BNP level 328.6 pg/mL <100.0 Lipase - 12/20/18 06:25 Lipase 29 U/L 8-78 Complete blood count (CBC) with automated white blood cell (WBC) differential - 12/31/18 08:12 Blood leukocytes automated count (number/volume) 11.6 10*3/uL 4.3-11.0 Blood erythrocytes automated count (number/volume) 3.76 10*6/uL 4.35-5.85 Venous blood hemoglobin measurement (mass/volume) 10.5 g/dL 13.3-17.7 Blood hematocrit (volume fraction) 33 % 40-54 Automated erythrocyte mean corpuscular volume 88 [foz_us] 80-99 Automated erythrocyte mean corpuscular hemoglobin (mass per erythrocyte) 28 pg 25-34 Automated erythrocyte mean corpuscular hemoglobin concentration measurement (mass/volume) 32 g/dL 32-36 Automated erythrocyte distribution width ratio 14.5 % 10.0- 14.5 Automated blood platelet count (count/volume) 246 10*3/uL 130-400 Automated blood platelet mean volume measurement 9.7 [foz_us] 7.4-10.4 Automated blood neutrophils/100 leukocytes 76 % 42-75 Automated blood lymphocytes/100 leukocytes 12 % 12-44 Blood monocytes/100 leukocytes 11 % 0-12 Automated blood eosinophils/100 leukocytes 2 % 0-10 Automated blood basophils/100 leukocytes 0 % 0-10 Blood neutrophils automated count (number/volume) 8.8 10*3 1.8-7.8 Blood lymphocytes automated count (number/volume) 1.3 10*3 1.0-4.0 Blood monocytes automated count (number/volume) 1.2 10*3 0.0- 1.0 Automated eosinophil count 0.2 10*3/uL 0.0-0.3 Automated blood basophil count (count/volume) 0.0 10*3/uL 0.0-0.1 Comprehensive metabolic panel - 12/31/18 08:12 Serum or plasma sodium measurement (moles/volume) 139 mmol/L 135-145 Serum or plasma potassium measurement (moles/volume) 3.7 mmol/L 3.6-5.0 Serum or plasma chloride measurement (moles/volume) 103 mmol/L 98-107 Carbon dioxide 26 mmol/L 21-32 Serum or plasma anion gap determination (moles/volume) 10 mmol/L 5-14 Serum or plasma urea nitrogen measurement (mass/volume) 18 mg/dL 7-18 Serum or plasma creatinine measurement (mass/volume) 0.98 mg/dL 0.60-1.30 Serum or plasma urea nitrogen/creatinine mass ratio 18 NRG Serum or plasma creatinine measurement with calculation of estimated glomerular filtration rate > NRG Serum or plasma glucose measurement (mass/volume) 110 mg/dL 70-105 Serum or plasma calcium measurement (mass/volume) 8.7 mg/dL 8.5-10.1 Serum or plasma total bilirubin measurement (mass/volume) 0.6 mg/dL 0.1-1.0 Serum or plasma alkaline phosphatase measurement (enzymatic activity/volume) 60 U/L 40-136 Serum or plasma aspartate aminotransferase measurement (enzymatic activity/volume) 23 U/L 5-34 Serum or plasma alanine aminotransferase measurement (enzymatic activity/volume) 39 U/L 0-55 Serum or plasma protein measurement (mass/volume) 5.9 g/dL 6.4-8.2 Serum or plasma albumin measurement (mass/volume) 3.6 g/dL 3.2-4.5 CALCIUM CORRECTED 9.0 mg/dL 8.5-10.1 Magnesium - 12/31/18 08:12 Magnesium 1.8 mg/dL 1.8-2.4 Serum or plasma C reactive protein measurement (mass/volume) - 12/31/18 08:12 Serum or plasma C reactive protein measurement (mass/volume) 3.34 mg/dL 0.00-0.50 Serum or plasma lithium measurement (moles/volume) - 12/31/18 08:12 BNP level 717.5 pg/mL <100.0 Encounters ACCT No. Visit Date/Time Discharge Status Pt. Type Provider Facility Loc./Unit Complaint [id number] 12/31/2018 07:42:00 12/31/2018 11:07:00 DIS Outpatient LANI UREÑA MD [facility] ER SOA [id number] 12/20/2018 06:37:00 12/20/2018 08:25:00 DIS Outpatient BETH ZUNIGA MD [facility] ICU CHEST PAIN [id number] 06/23/2018 06:34:00 06/23/2018 12:50:00 DIS Outpatient MANPREET BLANCHARD MD [facility] SDC TRAGUS/HELIX LESIONS [id number] 06/13/2018 09:35:00 06/13/2018 15:00:00 DIS Outpatient SANTO PITTS, MANPREET Garcia [facility] PREOP HELIX/TRAGUS LESIONS [id number] 05/11/2018 21:45:00 05/12/2018 00:55:00 DIS Emergency RAMESH RODRIGUEZ DO [facility] ER L EAR BLEEDING [id number] 06/13/2018 09:50:00 Document Registration
[2019-01-09] MEDS ORDERED: NITROGLYCERIN 0.4 MG SL TABS BTL 25'S SL PRN ×2 (07:30→09:45)
[2019-01-09] MEDS ORDERED: ASPIRIN 81 MG CHEW (CHILDREN'S ASA) PO ONE (07:30)
[2019-01-09 07:34] LABS: BASOPHILS % (AUTO) 1 % (0-10); EOSINOPHILS # (AUTO) 0.1 10^3/uL (0.0-0.3); EOSINOPHILS % (AUTO) 1 % (0-10); HEMATOCRIT 38 % (40-54); HEMOGLOBIN 12.2 G/DL (13.3-17.7); LYMPHOCYTES # (AUTO) 1.4 X 10^3 (1.0-4.0); LYMPHOCYTES % (AUTO) 24 % (12-44); MEAN CORPUSCULAR HEMOGLOBIN 28 PG (25-34); MEAN CORPUSCULAR HGB CONC 32 G/DL (32-36); MEAN CORPUSCULAR VOLUME 87 FL (80-99); MEAN PLATELET VOLUME 8.6 FL (7.4-10.4); MONOCYTES # (AUTO) 1.2 X 10^3 (0.0-1.0); MONOCYTES % (AUTO) 21 % (0-12); NEUTROPHILS # (AUTO) 3.2 X 10^3 (1.8-7.8); NEUTROPHILS % (AUTO) 54 % (42-75); PLATELET COUNT 299 10^3/uL (130-400); RED CELL DISTRIBUTION WIDTH 14.1 % (10.0-14.5); WHITE BLOOD COUNT 5.9 10^3/uL (4.3-11.0)
--- NOTE | 2019-01-09 07:36 | ED Chest Pain ---
General Chief Complaint: Chest Pain Stated Complaint: CHEST DISCOMFORT Source: patient, family History of Present Illness Date Seen by Provider: Jan 09, 2019 Time Seen by Provider: 07:32 Initial Comments 73-year-old male presents with chest pain. Patient is status post bypass surgery approximately 3 weeks ago. The patient states that the chest pain has b een present since he woke this morning and feels as if it is in his anterior chest and musculoskeletal in nature. The patient had similar discomfort with his ND at the end of November preceding his bypass surgery in [place]. Patient feels mildly short of breath. He denies associated nausea or diaphoresis. The patient denies significant radiation of this chest pain. His senior case manager is Dr. Arteaga. Allergies and Home Medications Allergies Coded Allergies: No Known Drug Allergies (Unverified , 06/13/18) Home Medications Aspirin 81 Mg Tablet., 81 MG PO DAILY Prescribed by: BETH ARTEAGA on 12/20/18 0756 Atorvastatin Calcium 10 Mg Tablet, 10 MG PO DAILY Prescribed by: BETH ARTEAGA on 12/20/18 0756 Azithromycin 250 Mg Tablet, 250 MG PO UD TAKE 2 TABLETS ON DAY ONE THEN TAKE 1 TABLET DAILY FOR FOUR MORE DAYS Prescribed by: LANI OAKLEY on 12/31/18 1038 Cefdinir 300 Mg Capsule, 300 MG PO BID Prescribed by: LANI OAKLEY on 12/31/18 1038 Cephalexin 500 Mg Capsule, 500 MG PO TID Prescribed by: NGUYEN MCMAHON on 06/23/18 1221 Cetirizine HCl 10 Mg Tablet, 10 MG PO DAILY, (Reported) Hydrochlorothiazide 25 Mg Tablet, 25 MG PO DAILY, (Reported) Hydrocodone/Acetaminophen 1 Each Tablet, 1-2 EACH PO Q4H PRN for PAIN-MODERATE Prescribed by: NGUYEN MCMAHON on 06/23/18 1221 Krill/Om-3/Dha/Epa/Phospho/Ast 1 Each Capsule, 1 EACH PO DAILY, (Reported) Losartan Potassium 50 Mg Tablet, 50 MG PO DAILY, (Reported) Pantoprazole Sodium 40 Mg Tablet.dr, 40 MG PO DAILY, (Reported) Patient Home Medication List Home Medication List Reviewed: Yes Review of Systems Review of Systems Constitutional: No chills; fever EENTM: No Blurred Vision Respiratory: Denies Shortness of Air Cardiovascular: See HPI, Chest Pain (patient rates his chest pain is 4/10.) Gastrointestinal: Denies Abdominal Pain, Denies Diarrhea, Denies Nausea Genitourinary: Denies Burning, Denies Frequency Musculoskeletal: see HPI; No back pain; muscle pain Skin: No change in color, No rash Psychiatric/Neurological: No Symptoms Reported Endocrine: No Symptoms Reported Hematologic/Lymphatic: No Symptoms Reported Past Voqcdcu-Ddpxkk-Mdfhav Hx Past Med/Social Hx: Reviewed Nursing Past Med/Soc Hx Patient Social History Type Used: Cigars Recent Foreign Travel: No Contact w/Someone Who Travel: No Recent Hopitalizations: Yes (OPEN HEART 12/20/18) Immunizations Up To Date Tetanus Booster (TDap): Less than 5yrs Date of Pneumonia Vaccine: Mar 15, 2012 Date of Influenza Vaccine: Apr 27, 2018 Seasonal Allergies Seasonal Allergies: No Past Medical History Surgeries: Yes (SKIN CANCER 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 BLANCHARD) CABG, Vasectomy Respiratory: No Cardiac: Yes (DOUBLE BYPASS) Hypertension Neurological: No Reproductive Disorders: No Sexually Transmitted Disease: No HIV/AIDS: No Genitourinary: No Gastrointestinal: Yes Gastroesophageal Reflux Musculoskeletal: No Endocrine: No Loss of Vision: Bilateral Cancer: Yes Skin Did You Recieve Any Treatments: Yes What Type of Treatment Did You: Surgical Intervention Psychosocial: No Integumentary: No Blood Disorders: No Adverse Reaction/Blood Tranf: No (N/A) Family Medical History No Pertinent Family Hx Physical Exam Vital Signs Vital Signs - First Documented 01/09/19 01/09/19 07:25 07:44 Temp 97.3 Pulse 68 Resp 20 B/P (MAP) 127/98 (108) Pulse Ox 99 O2 Delivery Room Air O2 Flow Rate 2.00 Capillary Refill : Height, Weight, BMI Height: 6'1.00" Weight: 225lbs. 11.0oz. 102.373913ea; 29.6 BMI Method:Stated General Appearance: No Apparent Distress, WD/WN HEENT: Normal ENT Inspection Neck: Normal Inspection Respiratory: Lungs Clear, Normal Breath Sounds, Other (there is midline sternal scar healing from the patient's recent bypass surgery) Cardiovascular: Regular Rate, Rhythm, No JVD, No Murmur, Normal Peripheral Pulses Gastrointestinal: Normal Bowel Sounds, Non Tender, Soft Extremity: Normal Capillary Refill, Normal Inspection, Normal Range of Motion Skin: Normal Color, Warm/Dry Progress/Results/Core Measures Results/Orders Lab Results Laboratory Tests Test 01/09/19 07:24 Range/Units White Blood Count 5.9 4.3-11.0 10^3/uL Red Blood Count 4.35 4.35-5.85 10^6/uL Hemoglobin 12.2 L 13.3-17.7 G/DL Hematocrit 38 L 40-54 % Mean Corpuscular Volume 87 80-99 FL Mean Corpuscular Hemoglobin 28 25-34 PG Mean Corpuscular Hemoglobin Concent 32 32-36 G/DL Red Cell Distribution Width 14.1 10.0-14.5 % Platelet Count 299 130-400 10^3/uL Mean Platelet Volume 8.6 7.4-10.4 FL Neutrophils (%) (Auto) 54 42-75 % Lymphocytes (%) (Auto) 24 12-44 % Monocytes (%) (Auto) 21 H 0-12 % Eosinophils (%) (Auto) 1 0-10 % Basophils (%) (Auto) 1 0-10 % Neutrophils # (Auto) 3.2 1.8-7.8 X 10^3 Lymphocytes # (Auto) 1.4 1.0-4.0 X 10^3 Monocytes # (Auto) 1.2 H 0.0-1.0 X 10^3 Eosinophils # (Auto) 0.1 0.0-0.3 10^3/uL Basophils # (Auto) 0.0 0.0-0.1 10^3/uL Neutrophils % (Manual) 40 % Lymphocytes % (Manual) 30 % Monocytes % (Manual) 23 % Eosinophils % (Manual) 0 % Basophils % (Manual) 0 % Band Neutrophils 3 % Reactive Lymphocytes 4 % Blood Morphology Comment NORMAL Prothrombin Time 15.5 H 12.2-14.7 SEC INR Comment 1.2 0.8-1.4 Activated Partial Thromboplast Time 40 H 24-35 SEC Sodium Level 136 135-145 MMOL/L Potassium Level 4.2 3.6-5.0 MMOL/L Chloride Level 100 98-107 MMOL/L Carbon Dioxide Level 25 21-32 MMOL/L Anion Gap 11 5-14 MMOL/L Blood Urea Nitrogen 15 7-18 MG/DL Creatinine 1.28 0.60-1.30 MG/DL Estimat Glomerular Filtration Rate 55 BUN/Creatinine Ratio 12 Glucose Level 129 H 70-105 MG/DL Calcium Level 9.2 8.5-10.1 MG/DL Corrected Calcium 9.2 8.5-10.1 MG/DL Magnesium Level 2.0 1.8-2.4 MG/DL Total Bilirubin 0.4 0.1-1.0 MG/DL Aspartate Amino Transf (AST/SGOT) 19 5-34 U/L Alanine Aminotransferase (ALT/SGPT) 32 0-55 U/L Alkaline Phosphatase 91 40-136 U/L Myoglobin 41.8 10.0-92.0 NG/ML Troponin I 0.057 H <0.028 NG/ML Total Protein 6.8 6.4-8.2 GM/DL Albumin 4.0 3.2-4.5 GM/DL My Orders Orders - BAYRONETIENNE MD Cbc With Automated Diff (01/09/19 07:28) Magnesium (01/09/19 07:28) Chest 1 View, Ap/Pa Only (01/09/19 07:28) Ekg Tracing (01/09/19 07:28) Cardiac Profile 1 (01/09/19 07:28) Comprehensive Metabolic Panel (01/09/19 07:28) Myoglobin Serum (01/09/19 07:28) Protime With Inr (01/09/19 07:28) Partial Thromboplastin Time (01/09/19 07:28) O2 (01/09/19 07:28) Monitor-Rhythm Ecg Trace Only (01/09/19 07:28) Lipid Panel (01/10/19 06:00) Ed Iv/Invasive Line Start (01/09/19 07:28) Nitroglycerin 0.4 Mg Btl 25's (Nitrostat (01/09/19 07:30) Aspirin Chewable Tablet (Baby Aspirin Ch (01/09/19 07:30) Manual Differential (01/09/19 07:24) BNP (01/09/19 07:44) Fibrin Degradation Products (01/09/19 07:44) Medications Given in ED Current Medications Medications Dose Ordered Sig/Alana Route Start Time Stop Time Status Last Admin Dose Admin Aspirin 324 mg ONCE ONCE PO 01/09/19 07:30 01/09/19 07:31 DC 01/09/19 07:40 324 MG Nitroglycerin 0.4 mg UD PRN SL 01/09/19 07:30 01/09/19 07:40 0.4 MG Vital Signs/I&O 01/09/19 01/09/19 01/09/19 07:25 07:25 07:44 Temp 97.3 Pulse 68 Resp 20 B/P (MAP) 127/98 (108) Pulse Ox 99 98 O2 Delivery Room Air Nasal Cannula O2 Flow Rate 2.00 Progress Progress Note : Time: 07:54 Progress Note The patient's EKG did not demonstrate an acute current of injury. There is a first-degree heart block present. Patient received 3 baby aspirin as he had taken 1 at home. Patient was given one sublingual nitroglycerin with resolution of his chest pain. The patient felt symptomatically short of breath was placed on supplemental oxygen. The patient's portable chest x-ray demonstrated questionable vascular redistribution. I reviewed with Dr. Swanson who recommended the patient be admitted for further evaluation. Dr. Fagan was kind enough to admit the patient to cardiac stepdown. The patient's blood pressure and pulse rate were both essentially normal. I gave the patient a small amount of Toprol-XL 25 mg. Departure Communication (Admissions) Time/Spoke to Admitting Phy: 08:18 Dr. Sena. Time/Spoke to Consulting Phy: 08:19 Dr. Swanson Impression Primary Impression: Chest pain Qualified Codes: R07.9 - Chest pain, unspecified Additional Impression: Elevated troponin Disposition: ADMITTED INPATIENT Condition: Improved Admissions Decision to Admit Reason: Admit from ER (General) Decision to Admit/Date: Jan 09, 2019 Time/Decision to Admit Time: 08:22 Departure-Patient Inst. Referrals: SUJATHA DAVIS MD (PCP/Family) Primary Care Physician ETIENNE VERMA MD Jan 09, 2019 07:36
[2019-01-09 07:44] LABS: INR 1.2 (0.8-1.4); PROTHROMBIN TIME PATIENT 15.5 SEC (12.2-14.7)
[2019-01-09 07:50] LABS: BILIRUBIN,TOTAL 0.4 MG/DL (0.1-1.0); CALCIUM 9.2 MG/DL (8.5-10.1); CREATININE SERUM 1.28 MG/DL (0.60-1.30); POTASSIUM 4.2 MMOL/L (3.6-5.0); TOTAL PROTEIN 6.8 GM/DL (6.4-8.2)
--- NOTE | 2019-01-09 07:50 | NUR ---
pt reports he is pain free after recienving one nitro.
[2019-01-09 08:03] LABS: BAND NEUTROPHILS 3 %; BASOPHILS % (MANUAL) 0 %; EOSINOPHILS % (MANUAL) 0 %; LYMPHOCYTES % (MANUAL) 30 %; MONOCYTES % (MANUAL) 23 %; NEUTROPHILS % (MANUAL) 40 %; REACTIVE LYMPHOCYTES 4 %
[2019-01-09 08:04] LABS: RBC MORPH NORMAL
--- NOTE | 2019-01-09 08:11 | Diagnostic Imaging Report ---
INDICATION: Chest pain. Portable upright AP view of the chest is obtained with comparison made to study of 12/31/2018. FINDINGS: Heart size and pulmonary vascularity are within normal limits. There is no evidence of pneumothorax or consolidation. There is no overt edema. There is no evidence of significant pleural fluid. Surgical changes are again noted in the mediastinum. IMPRESSION: No acute abnormality or significant change detected. Dictated by: Dictated on workstation # [id number]
--- OUTSIDE RECORDS SUMMARY | 2019-01-09 08:31 | XMS REPORT | Continuity of Care Document ---
Author Organization Unknown Address Unknown Allergies Active Description Code Type Severity Reaction Onset Reported/Identified Relationship to Patient Clinical Status Yes No Known Drug Allergies [id number] Drug Allergy Unknown N/A 06/13/2018 Medications There [...] SKIN 06/23/2018 MANPREET BLANCHARD MD Ot Z79.82 ACCOUNT CLERK (CURRENT) USE OF ASPIRIN 06/23/2018 MANPREET BLANCHARD MD Ot Z79.899 OTHER ACCOUNT CLERK (CURRENT) DRUG THERAPY 06/27/2018 MANPREET BLANCHARD MD, [...] SKIN 06/27/2018 MANPREET BLANCHARD MD Ot Z79.82 ACCOUNT CLERK (CURRENT) USE OF ASPIRIN 06/27/2018 MANPREET BLANCHARD MD Ot Z79.899 OTHER CUSTODIAL (CURRENT) DRUG THERAPY 06/30/2018 MANPREET BLANCHARD MD Ot C44.219 BASAL CELL CARCINOMA SKIN/ LEFT EAR AND 06/30/2018 MANPREET BLANCHARD MD Ot 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 06/30/2018 MANPREET BLANCHARD MD Ot I10 ESSENTIAL (PRIMARY) HYPERTENSION 06/30/2018 MANPREET BLANCHARD MD Ot K21.9 GASTRO-ESOPHAGEAL REFLUX DISEASE WITHOUT 06/30/2018 MANPREET BLANCHARD MD Ot L90.5 SCAR CONDITIONS AND FIBROSIS OF SKIN 06/30/2018 MANPREET BLANCHARD MD Ot Z79.82 ACCOUNT CLERK (CURRENT) USE OF ASPIRIN 06/30/2018 MANPREET BLANCHARD MD Ot Z79.899 OTHER ACCOUNT CLERK (CURRENT) DRUG THERAPY 12/20/2018 BETH ZUNIGA MD Ot E78.5 HYPERLIPIDEMIA, UNSPECIFIED 12/20/2018 BETH ZUNIGA MD Ot I10 ESSENTIAL (PRIMARY) HYPERTENSION 12/20/2018 BETH ZUNIGA MD Ot I21.4 NON-ST ELEVATION (NSTEMI) MYOCARDIAL INF 12/20/2018 BETH ZUNIGA MD Ot I25.10 ATHSCL HEART DISEASE OF [place] CORONARY 12/20/2018 BETH ZUNIGA MD Ot K21.9 GASTRO-ESOPHAGEAL REFLUX DISEASE WITHOUT 12/20/2018 BETH ZUNIGA MD Ot Z79.82 CUSTODIAL (CURRENT) USE OF ASPIRIN 12/20/2018 BETH ZUNIGA MD Ot Z79.899 OTHER CUSTODIAL (CURRENT) DRUG THERAPY 12/22/2018 BETH ZUNIGA MD Ot E78.5 HYPERLIPIDEMIA, UNSPECIFIED 12/22/2018 BETH ZUNIGA MD Ot I10 ESSENTIAL (PRIMARY) HYPERTENSION 12/22/2018 BETH ZUNIGA MD Ot I21.4 NON-ST ELEVATION (NSTEMI) MYOCARDIAL INF 12/22/2018 BETH ZUNIGA MD Ot I25.10 ATHSCL HEART DISEASE OF [place] CORONARY 12/22/2018 BETH ZUNIGA MD Ot K21.9 GASTRO-ESOPHAGEAL REFLUX DISEASE WITHOUT 12/22/2018 BETH ZUNIGA MD Ot Z79.82 CUSTODIAL (CURRENT) USE OF ASPIRIN 12/22/2018 BETH ZUNIGA MD Ot Z79.899 OTHER ACCOUNT CLERK (CURRENT) DRUG THERAPY 12/23/2018 BETH ZUNIGA MD Ot E78.5 HYPERLIPIDEMIA, UNSPECIFIED 12/23/2018 BETH ZUNIGA MD Ot I10 ESSENTIAL (PRIMARY) HYPERTENSION 12/23/2018 BETH ZUNIGA MD, Ot I21.4 NON-ST ELEVATION (NSTEMI) MYOCARDIAL INF 12/23/2018 BETH ZUNIGA MD, Ot I25.10 ATHSCL HEART DISEASE OF [place] CORONARY 12/23/2018 BETH ZUNIGA MD, Ot K21.9 GASTRO-ESOPHAGEAL REFLUX DISEASE WITHOUT 12/23/2018 BETH ZUNIGA MD, Ot Z79.82 ACCOUNT CLERK (CURRENT) USE OF ASPIRIN 12/23/2018 BETH ZUNIGA MD, Ot Z79.899 OTHER CUSTODIAL (CURRENT) DRUG THERAPY 12/31/2018 LANI UREÑA MD, Ot I10 ESSENTIAL (PRIMARY) HYPERTENSION 12/31/2018 LANI UREÑA MD, Ot J18.9 PNEUMONIA, UNSPECIFIED ORGANISM 12/31/2018 LANI UREÑA MD, Ot K21.9 GASTRO-ESOPHAGEAL REFLUX DISEASE WITHOUT 12/31/2018 LANI UREÑA MD Ot R06.00 DYSPNEA, UNSPECIFIED 12/31/2018 LANI UREÑA MD Ot R79.89 OTHER SPECIFIED ABNORMAL FINDINGS OF BLO 12/31/2018 LANI UREÑA MD, Ot Z79.82 ACCOUNT CLERK (CURRENT) USE OF ASPIRIN 12/31/2018 LANI UREÑA [...] BLO 01/04/2019 LANI UREÑA MD Ot Z79.82 ACCOUNT CLERK (CURRENT) USE OF ASPIRIN 01/04/2019 LANI UREÑA [...] BLO 01/06/2019 LANI UREÑA MD Ot Z79.82 CUSTODIAL (CURRENT) USE OF ASPIRIN 01/06/2019 LANI UREÑA MD Ot 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 01/06/2019 LANI UREÑA MD Ot Z87.891 PERSONAL HISTORY OF NICOTINE DEPENDENCE 01/06/2019 LANI UREÑA MD Ot Z95.1 PRESENCE OF AORTOCORONARY BYPASS GRAFT 01/06/2019 LANI UREÑA MD Ot Z98.52 VASECTOMY STATUS Procedures Code Description Performed By Performed On [id number] MEASURE OF CARDIAC SAMPL PRESSURE, L H 12/20/2018 [id number] FLUOROSCOPY OF MULT COR ART USING L OSM 12/20/2018 [id number] FLUOROSCOPY OF LEFT HEART USING LOW OSMO 12/20/2018 [id number] FLUOROSCOPY OF THORACIC AORTA USING LOW 12/20/2018 [...] Status Pt. Type Provider Facility Loc./Unit Complaint [id number] 12/31/2018 07:42:00 12/31/2018 11:07:00 DIS Outpatient LANI UREÑA MD [facility] ER SOA [id number] 12/20/2018 06:37:00 12/20/2018 08:25:00 DIS Outpatient BETH ZUNIGA MD [facility] ICU CHEST PAIN [id number] 06/23/2018 06:34:00 06/23/2018 12:50:00 DIS Outpatient MANPREET BLANCHARD MD [facility] SDC TRAGUS/HELIX LESIONS [id number] 06/13/2018 09:35:00 06/13/2018 15:00:00 DIS Outpatient SANTO PITTS, MANPREET Garcia [facility] PREOP HELIX/TRAGUS LESIONS [id number] 05/11/2018 21:45:00 05/12/2018 00:55:00 DIS Emergency RAMESH RODRIGUEZ DO [facility] ER L EAR BLEEDING [id number] 06/13/2018 09:50:00 Document Registration
--- NOTE | 2019-01-09 08:49 | NUR ---
CORINA MURRY admitted to room CU5-1, with an admitting diagnosis of CP, on 01/09/19 from ER via WC, accompanied by STAFF.CORINA MURRY introduced to surroundings, call light, bed controls, phone, TV, temperature control, lights, meal times, smoking policy, visitor policy, side rail policy, bathrooms and showers. Patient Rights given to patient in the handbook. CORINA MURRY verbalizes understanding that [facility] is not responsible for the loss or damage to any personal effects or valuables that are kept in the patients posession during their hospitalization. The following Patient Care Plans were discussed with the PT: Discharge Planning, PAIN,ANXIETY, and ACTIVITY INTOLERANCE. CORINA MURRY verbalizes understanding of Interdisciplinary Patient Education. Patient and family were informed about the Rapid Response Team and its purpose.
--- NOTE | 2019-01-09 09:34 | Diagnostic Imaging Report ---
INDICATION: Chest discomfort. TECHNIQUE: A frontal chest was obtained at 0926 hours. COMPARISON: 01/09/2019. FINDINGS: There is post sternotomy change with cardiomegaly. There are chronic appearing increased interstitial markings. There is no acute consolidation, pneumothorax, or pleural fluid. IMPRESSION: Cardiomegaly and postop changes with chronic interstitial prominence. No acute consolidation or pleural fluid. Dictated by: Dictated on workstation # [id number]
[2019-01-09] MEDS ORDERED: NS IV 1000 ML 1,000 ML IV SCH (09:45)
--- NOTE | 2019-01-09 09:50 | Consultation-Cardiology ---
HPI-Cardiology Cardiology Consultation: Date of Consultation 01/09/19 Time Seen by a Provider: 09:35 Date of Admission Attending Physician Linda Sena MD Admitting Physician Roberto Ragland MD Consulting Physician NIECY MAHMOOD MD, MA, FACP, FACC, FSCAI, CCDS Primary senior pl sql developer: Dr Arteaga HPI: Chief Complaint: CC: Chest discomfort HPI: 73 yo man with recent CABG after he had presented with ac WI on December 20, 2018. Admitted this am with soreness of the chest. Has had some soreness since sternotomy, but was somewhat worse today: mid-chest, mild, nonradiating, unassociated with other symptoms, w/o aggravating or relieving factors. Somewhat similar to what he had with his WI but with much less intensity and without any shortness of breath (had shortness of breath and chest discomfort at time of WI) Notes some gen malaise and weakness Denies palp or syncope or significant leg swelling Mild exertional shortness of breath Review of Systems-Cardiology Review of Systems Constitutional: malaise, tiredness; No weight loss, No weight gain Eyes: No vision change Ears/Nose/Throat: No ear discharge, No nasal drainage, No recent hearing loss Respiratory: As described under HPI Cardiovascular: As described under HPI Gastrointestinal: No constipation, No diarrhea, No difficulty swallowing, No nausea, No vomiting Genitourinary: No dysuria, No hematuria, No urine frequency changes Musculoskeletal: back pain (chronic) Skin: No rash, No ulcerations Psychiatric/Neurological: No seizure, No focal weakness Hematologic: No bleeding abnormalities ZSN-Xukapc-Mvkwah Hx Patient Social History Alcohol Use: Denies Use Recreational Drug Use: No Smoking Status: Former Smoker Type Used: Cigars Recent Foreign Travel: No Recent Infectious Disease Expo: No Immunizations Up To Date Tetanus Booster (TDap): Less than 5yrs Date of Pneumonia Vaccine: Mar 15, 2012 Date of Influenza Vaccine: Apr 27, 2018 Past Medical History PMH As described under Assessment. Family Medical History Family Medical History: does not report fam h/o early CAD or SCD Allergies and Home Medications Allergies Coded Allergies: adhesive (Verified Allergy, Intermediate, RASH, 01/09/19) Home Medications Amiodarone HCl 200 Mg Tablet, 400 MG PO DAILY, (Reported) TAKES 2 (200MG) TABLETS Apixaban 5 Mg Tablet, 5 MG PO BID, (Reported) Aspirin 81 Mg Tablet.dr, 81 MG PO DAILY, (Reported) Atorvastatin Calcium 40 Mg Tablet, 40 MG PO HS, (Reported) Cefdinir 300 Mg Capsule, 300 MG PO BID, (Reported) 10 DAY SUPPLY FILLED 12-31-18 Cetirizine HCl 10 Mg Tablet, 10 MG PO DAILY, (Reported) Furosemide 40 Mg Tablet, 40 MG PO DAILY, (Reported) #14 TABLETS FILLED 12-29-18 Guaifenesin 600 Mg Tab.er.12h, 600 MG PO DAILY, (Reported) Hydrocodone/Acetaminophen 1 Each Tablet, 1 TAB PO Q4H PRN for PAIN-MODERATE, (Reported) Krill/Om-3/Dha/Epa/Phospho/Ast 1 Each Capsule, 1 CAP PO DAILY, (Reported) Metoprolol Tartrate 50 Mg Tablet, 50 MG PO BID, (Reported) Pantoprazole Sodium 40 Mg Tablet.dr, 40 MG PO DAILY, (Reported) Potassium Chloride 20 Meq Tab.er.prt, 20 MEQ PO DAILY, (Reported) FILLED #14 12-29-18 Patient Home Medication List Home Medication List Reviewed: Yes Physical Exam-Cardiology Physical Exam Vital Signs/I&O 01/09/19 01/09/19 01/09/19 01/09/19 07:25 07:25 07:44 08:48 Temp 97.3 98.5 Pulse 68 65 Resp 20 18 B/P (MAP) 127/98 (108) 132/78 (96) Pulse Ox 99 98 97 O2 Delivery Room Air Nasal Cannula Nasal Cannula O2 Flow Rate 2.00 2.00 01/09/19 01/09/19 01/09/19 01/09/19 08:49 09:00 09:00 10:00 Pulse 66 66 69 Resp 11 23 B/P (MAP) 150/87 (108) 148/76 (100) Pulse Ox 91 O2 Delivery Room Air Room Air Room Air 01/09/19 01/09/19 01/09/19 01/09/19 10:53 11:00 11:05 12:00 Temp 97.1 97.6 Pulse 66 Resp 10 B/P (MAP) 147/83 (104) Pulse Ox 96 O2 Delivery Room Air Room Air 01/09/19 01/09/19 01/09/19 01/09/19 12:00 13:00 13:00 14:00 Pulse 68 67 68 67 Resp 14 14 15 B/P (MAP) 115/85 (95) 149/78 (101) 174/99 (124) Pulse Ox 98 99 98 O2 Delivery Room Air Room Air Room Air 01/09/19 01/09/19 01/09/19 01/09/19 15:00 16:00 16:00 16:00 Temp 98.5 Pulse 71 71 Resp 24 18 B/P (MAP) 208/111 (143) 146/78 (100) Pulse Ox 98 96 O2 Delivery Room Air Room Air Room Air Capillary Refill : Less Than 3 Seconds Constitutional: AAO x 3, well-developed, well-nourished HEENT: PERRL, EOMI, hearing is well preserved; No xanthelasmas are seen Neck: carotid pulses are 2 + bilaterally, with good upstrokes Respiratory: No accessory muscle use; other (good bilat air entry) Cardiovascular: regular rate-rhythm, S1 and S2, systolic murmur (soft MIKIE at card base) Gastrointestinal: No tender; soft; No guarding, No rebound; audible bowel sounds Extremities: No clubbing, No cyanosis, No significant edema Neurologic/Psychiatric: oriented x 3, grossly intact, power is 5/5 both on sides Skin: No rash on exposed areas, No ulcerations on exposed areas Data Review Labs Laboratory Tests 01/09/19 07:24: White Blood Count 5.9, Red Blood Count 4.35, Hemoglobin 12.2L, Hematocrit 38L, Mean Corpuscular Volume 87, Mean Corpuscular Hemoglobin 28, Mean Corpuscular Hemoglobin Concent 32, Red Cell Distribution Width 14.1, Platelet Count 299, Mean Platelet Volume 8.6, Neutrophils (%) (Auto) 54, Lymphocytes (%) (Auto) 24, Monocytes (%) (Auto) 21H, Eosinophils (%) (Auto) 1, Basophils (%) (Auto) 1, Neutrophils # (Auto) 3.2, Lymphocytes # (Auto) 1.4, Monocytes # (Auto) 1.2H, Eosinophils # (Auto) 0.1, Basophils # (Auto) 0.0, Neutrophils % (Manual) 40, Lymphocytes % (Manual) 30, Monocytes % (Manual) 23, Eosinophils % (Manual) 0, Basophils % (Manual) 0, Band Neutrophils 3, Reactive Lymphocytes 4, Blood Morphology Comment NORMAL, Prothrombin Time 15.5H, INR Comment 1.2, Activated Partial Thromboplast Time 40H, D-Dimer 2.83H, Sodium Level 136, Potassium Level 4.2, Chloride Level 100, Carbon Dioxide Level 25, Anion Gap 11, Blood Urea Nitrogen 15, Creatinine 1.28, Estimat Glomerular Filtration Rate 55, BUN/Creatinine Ratio 12, Glucose Level 129H, Calcium Level 9.2, Corrected Calcium 9.2, Magnesium Level 2.0, Total Bilirubin 0.4, Aspartate Amino Transf (AST/SGOT) 19, Alanine Aminotransferase (ALT/SGPT) 32, Alkaline Phosphatase 91, Myoglobin 41.8, Troponin I 0.057H, B-Type Natriuretic Peptide 206.6H, Total Protein 6.8, Albumin 4.0 01/09/19 13:21: Troponin I 0.044H Laboratory Tests 01/09/19 07:24 A/P-Cardiology Assessment/Admission Diagnosis Chest discomfort of undetermined etiology S/p CABG x 2 on 12/22/18, following WI. This included a ALEXANDER graft, but details of CABG are not known at this time Christina-CABG PAF Mild ischemic cardiomyopathy. Pre-CABG LVEF 45-50% and inf wall hypokinesis (on pre-op card cath by Dr Arteaga) Minimal troponin elevation, possibly residual from recent WI/CABG Hypertension, by history Hyperlipidemia, by history Discussion and Recomendations * Tele * Echo * Serial enzymes. If flat or trending down, then d/c. If trending up, then more w/u * Treat with ASA, bb, ALHAJI-inhib/ARB, statin * Continue apixaban * I reviewed his records * I had a detailed discussion with him and his Clinical Quality Measures AMI/AHF: ASA po Prior to arrival: Yes (81 mg) NIECY MAHMOOD MD FACP [facility] CCDS Jan 09, 2019 09:50
--- NOTE | 2019-01-09 09:55 | NUR ---
dr pierre here to see pt. recent ekg reviewed by
[2019-01-09] MEDS ORDERED: GUAI600T43 PO (11:58)
[2019-01-09] MEDS ORDERED: AMIO200T4 PO (11:58)
[2019-01-09] MEDS ORDERED: CEFD300C3 PO (11:58)
[2019-01-09] MEDS ORDERED: APIX5TAB PO (11:58)
[2019-01-09] MEDS ORDERED: ASPI-983 PO (11:58)
[2019-01-09] MEDS ORDERED: ATOR40TA70 PO (11:58)
[2019-01-09] MEDS ORDERED: POTA20TA15 PO (11:58)
[2019-01-09] MEDS ORDERED: FURO40TA4 PO (11:58)
[2019-01-09] MEDS ORDERED: METO50TA15 PO (11:58)
[2019-01-09] MEDS ORDERED: HYDR-3812 PO (12:00)
--- NOTE | 2019-01-09 12:00 | NUR ---
SPOKE WITH THE PATIENT AND HIS FAMILY ABOUT MEDICATIONS. WE WENT OVER THE EXT MED HX AND THEY VERIFIED HOW HE TAKES THEM. HE TAKES BILLIE RED, MUCINEX, ZYRTEC, AND ASPIRIN 81MG DAILY OTC. HE IS NO LONGER TAKING THE HCTZ AND LOSARTAN THEY WERE STOPPED.
[2019-01-09] MEDS ORDERED: NON-FORMULARY MEDICATION 1 EA EA (Hydrocodone/Acetaminophen (Hydrocodone-Acetamin 5-325 mg PO PRN (12:45)
[2019-01-09] MEDS ORDERED: HYDROcodone/APAP 5 MG/325 MG (LORTAB) TAB PO PRN (13:15)
[2019-01-09] MEDS ORDERED: CATHETER FLUSH 10 ML SYR IV PRN (13:15)
--- NOTE | 2019-01-09 14:39 | Short Stay Summary-Hospitalist ---
History of Present Illness HPI/Chief Complaint Pt is a 73yoCM with a PMH of recent CABG x2 3 weeks ago who presented to the ER due to chest pain. He states that this morning he developed achey pain across his chest that he thought was similar to his previous heart attack 3 weeks ago. Because of this history he promptly sought treatment in the ER. He did complain of very mild SOB but that it was not near how SOB he was last time. He has had very poorly controlled blood pressure recently and his BP was as high as 200 SBP at the dentist. He denies any other complains. Review of records show he was started on antibiotics by our ER for pneumonia on 12/31. He was given nitro in the ER with improvement in symptoms. Source: patient, family Date Seen 01/09/19 Time Seen by a Provider: 13:00 Attending Physician Karel Sena MD PCP Roberto Ragland MD Referring Physician Date of Admission Jan 09, 2019 at 08:27 Home Medications & Allergies Home Medications Reviewed patient Home Medication Reconciliation performed by pharmacy medication reconciliations sales technician and/or nursing. Patients Allergies have been reviewed. Allergies Allergies Coded Allergies adhesive (Verified Allergy, Intermediate, RASH, 01/09/19) Past Saqlaeq-Jonzzh-Prierb Hx Past Med/Social Hx: Reviewed Nursing Past Med/Soc Hx Patient Social History Alcohol Use: Denies Use Recreational Drug Use: No Smoking Status: Former Smoker Type Used: Cigars Recent Foreign Travel: No Contact w/other who traveled: No Recent Hopitalizations: Yes (OPEN HEART 12/20/18) Recent Infectious Disease Expo: No Immunizations Up To Date Tetanus Booster (TDap): Less than 5yrs Date of Pneumonia Vaccine: Mar 15, 2012 Date of Influenza Vaccine: Apr 27, 2018 Seasonal Allergies Seasonal Allergies: No Past Medical History Surgeries: CABG, Vasectomy Cardiac: Coronary Artery Disease, Hypertension Reproductive: No Sexually Transmitted Disease: No HIV/AIDS: No Gastrointestinal: Gastroesophageal Reflux Loss of Vision: Bilateral Cancer: Skin Did You Recieve Any Treatments: Yes What Type of Treatment Did You: Surgical Intervention History of Blood Disorders: No Adverse Reaction to Blood Hester: No (N/A) Family History FH: leukemia 19 FATHER 19 MOTHER No Pertinent Family Hx Review of Systems Constitutional: no symptoms reported EENTM: no symptoms reported Respiratory: No cough, No dyspnea on exertion, No orthopnea Cardiovascular: see HPI Gastrointestinal: no symptoms reported Genitourinary: no symptoms reported Musculoskeletal: no symptoms reported Skin: pruritus, rash Psychiatric/Neurological: No Symptoms Reported Physical Exam Physical Exam Vital Signs Vital Signs - First Documented 01/09/19 01/09/19 07:25 07:44 Temp 97.3 Pulse 68 Resp 20 B/P (MAP) 127/98 (108) Pulse Ox 99 O2 Delivery Room Air O2 Flow Rate 2.00 Capillary Refill : Less Than 3 Seconds Height, Weight, BMI Height: 6'1.00" Weight: 219lbs. 3.0oz. 99.247462hs; 28.9 BMI Method:Stated General Appearance: No Apparent Distress, WD/WN HEENT: Normal ENT Inspection Neck: Normal Inspection Respiratory: Lungs Clear, Normal Breath Sounds, Other (there is midline sternal scar healing from the patient's recent bypass surgery) Cardiovascular: Regular Rate, Rhythm, No JVD, No Murmur, Normal Peripheral Pulses Gastrointestinal: Normal Bowel Sounds, Non Tender, Soft Extremity: Normal Capillary Refill, Normal Inspection, Normal Range of Motion Neurologic/Psychiatric: Alert, Oriented x3 Skin: Normal Color, Warm/Dry Results Results/Procedures Labs Patient resulted labs reviewed. Imaging: Reviewed Imaging Report Short Stay Diagnosis Discharge Diagnosis-Short Stay Admission Diagnosis Chest Pain Final Discharge Diagnosis Chest Pain Conclusion Plan Chest pain- does not sound cardiac in nature but given recent CABG will observe troponin trended down Cardiology consulted, appreciate recs Possibly DC home pending cards evaluation and repeat troponin If troponin trending down can DC home Discussed plan with patient who is in agreement Clinical Quality Measures AMI/AHF: ASA po Prior to arrival: Yes (81 mg) DVT/VTE Risk/Contraindication: Risk Factor Score Per Nursin RFS Level Per Nursing on Admit: 2=Moderate KAREL SENA MD Jan 09, 2019 14:39
--- NOTE | 2019-01-09 18:40 | NUR ---
CORINA MURRY demonstrates understanding of discharge instructions and accurately returns instructions upon questioning. Copy of Post-Discharge Instructions and Medication Discharge Instructions given to PT. CORINA MURRY is able to manage continuing needs after discharge. Patients belongings returned to PT. Skin dry and intact; no breakdown noted. Patient discharged from [facility]- on 01/09/19 at 1840. CORINA MURRY left floor via WC, accompanied by STAFF/.
[2019-01-09] MEDS ORDERED: CEFDINIR 300 MG (OMNICEF) CAP PO SCH (21:00)
[2019-01-09] MEDS ORDERED: NON-FORMULARY MEDICATION 1 EA EA (Cefdinir 300 MG) PO SCH (21:00)
[2019-01-09] MEDS ORDERED: ATORVASTATIN 40 MG (LIPITOR) TABLET PO SCH (21:00)
[2019-01-09] MEDS ORDERED: meTOprolol TARTRATE 50 MG (LOPRESSOR) TAB PO SCH (21:00)
[2019-01-10] MEDS ORDERED: PANTOPRAZOLE 40 MG (PROTONIX) TAB PO SCH (07:00)
[2019-01-10] MEDS ORDERED: KCL 20 MEQ TAB (K-DUR) PO SCH (08:00)
[2019-01-10] MEDS ORDERED: FUROSEMIDE 40 MG (LASIX) TAB PO SCH (09:00)
[2019-01-10] MEDS ORDERED: ASPIRIN E.C. 81 MG (ECOTRIN) TAB PO SCH (09:00)
[2019-01-10] MEDS ORDERED: LORATADINE (CLARITIN) 10 MG TAB PO SCH (09:00)
[2019-01-10] MEDS ORDERED: AMIODARONE 200 MG (CORDARONE) TAB PO SCH (09:00)
[2019-01-10] MEDS ORDERED: NON-FORMULARY MEDICATION 1 EA EA (Cetirizine HCl 10 MG) PO SCH (09:00)
== END 2019-01-09 18:40 | disposition home or self-care (01) | DRG 282 ==
LOC: EDUNIT# 07:16 → ER 07:17 → ICU 08:27
PROVIDERS: ADMIT Family Medicine; ATTEND Family Medicine
DX: R07.89 Other chest pain (principal); I21.9 Acute myocardial infarction, unspecified; I25.10 Atherosclerotic heart disease of native coronary artery without angina pectoris; I25.5 Ischemic cardiomyopathy; I44.0 Atrioventricular block, first degree; I10 Essential (primary) hypertension; E78.5 Hyperlipidemia, unspecified; K21.9 Gastro-esophageal reflux disease without esophagitis; Z95.1 Presence of aortocoronary bypass graft; Z79.82 Long term (current) use of aspirin; Z87.891 Personal history of nicotine dependence
CPT/HCPCS: 36415; 71045; 80053; 83735; 83874; 83880; 84484; 85007; 85027; 85379; 85610; 85730; 93005; 93041; 93306

== ENCOUNTER → 2019-01-11 | Outpatient (CLI) | payer MEDICARE, OTHER ==
[~2019-01-11] MED LIST changes: +AMIO200T4 PO; +APIX5TAB PO; +ATOR40TA70 PO; +FURO40TA4 PO; +GUAI600T43 PO; +METO50TA15 PO; +POTA20TA15 PO
--- NOTE | 2019-01-11 16:34 | Diagnostic Imaging Report ---
PROCEDURE: US left lower extremity venous. TECHNIQUE: Multiple real-time grayscale images were obtained over the left lower extremity in various projections. Additional duplex Doppler and color Doppler images were also obtained. INDICATION: Pain. FINDINGS: Unilateral left lower extremity femoral-popliteal deep venous ultrasound was normal and deep vein showed normal flow, normal compressibility, and normal waveforms. No superficial thrombus identified. No mass or fluid collection documented. IMPRESSION: Normal negative unilateral left lower extremity venous Doppler and ultrasound exam Dictated by: Dictated on workstation # [id number]
== END ==
LOC: RAD 15:28
PROVIDERS: ATTEND Nurse Practitioner
DX: M79.661 Pain in right lower leg (principal)

== ENCOUNTER 2019-03-05 10:36 | Emergency (ER) | payer MEDICARE, OTHER ==
[~2019-03-05] VITALS: Ht 185.4 cm; Wt 94.3 kg
--- OUTSIDE RECORDS SUMMARY | 2019-03-05 10:41 | XMS REPORT | Continuity of Care Document ---
Author Organization Unknown Address Unknown Phone Unavailable Allergies Active Description Code Type Severity Reaction Onset Reported/Identified Relationship to Patient Clinical Status Yes No Known Drug Allergies [id number] Drug Allergy Unknown N/A 06/13/2018 Yes adhesive [id number] Drug Allergy Moderate RASH 01/09/2019 Medications There is no data. Problems Date Dx Coded Attending Type Code Diagnosis Diagnosed By 05/12/2018 RAMESH RODRIGUEZ DO K Ot H95.41 POSTPROCEDURAL HEMORRHAGE OF EAR/MASTD F 05/12/2018 JENNIFER DO RAMESH K Ot I10 ESSENTIAL (PRIMARY) HYPERTENSION 05/12/2018 JENNIFER MURPHY RAMESH K Ot 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 05/12/2018 JENNIFER DO RAMESH K Ot Z98.890 OTHER SPECIFIED POSTPROCEDURAL STATES 05/16/2018 JENNIFER DO RAMESH K Ot H95.41 POSTPROCEDURAL HEMORRHAGE OF EAR/MASTD F 05/16/2018 JENNIFER DO, RAMESH K Ot I10 ESSENTIAL (PRIMARY) HYPERTENSION 05/16/2018 JENNIFER DO RAMESH K Ot 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 05/16/2018 JENNIFER DO, RAMESH K Ot Z98.890 OTHER SPECIFIED POSTPROCEDURAL STATES 05/18/2018 JENNIFER DO RAMESH K Ot H95.41 POSTPROCEDURAL HEMORRHAGE OF EAR/MASTD F 05/18/2018 JENNIFER DO RAMESH K Ot I10 ESSENTIAL (PRIMARY) HYPERTENSION 05/18/2018 JENNIFER DO RAMESH K Ot 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 05/18/2018 JENNIFER DO RAMESH K Ot Z98.890 OTHER SPECIFIED POSTPROCEDURAL STATES 06/13/2018 SANTO PITTS, MANPREET Garcia Ot C44.219 BASAL CELL CARCINOMA SKIN/ LEFT EAR AND 06/13/2018 MANPREET BLANCHARD MD Ot Z01.810 ENCOUNTER FOR PREPROCEDURAL CARDIOVASCUL 06/13/2018 BLANCHARD MD, MANPREET P Ot Z01.811 ENCOUNTER FOR PREPROCEDURAL RESPIRATORY 06/13/2018 MANPREET BLANCHARD MD Ot Z01.812 ENCOUNTER FOR PREPROCEDURAL LABORATORY E 06/13/2018 MANPREET BLANCHARD MD Ot Z11.2 ENCOUNTER FOR SCREENING FOR OTHER BACTER 06/23/2018 MANPREET BLANCHARD MD Ot C44.219 BASAL CELL CARCINOMA SKIN/ LEFT EAR AND 06/23/2018 MANPREET BLANCHARD MD Ot 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 06/23/2018 MANPREET BLANCHARD MD Ot I10 ESSENTIAL (PRIMARY) HYPERTENSION 06/23/2018 MANPREET BLANCHARD MD Ot K21.9 GASTRO-ESOPHAGEAL REFLUX DISEASE WITHOUT 06/23/2018 MANPREET BLANCHARD MD Ot L90.5 SCAR CONDITIONS AND FIBROSIS OF SKIN 06/23/2018 MANPREET BLANCHARD MD Ot Z79.82 ENVIRONMENTAL TECHNICAL OFFICER (CURRENT) USE OF ASPIRIN 06/23/2018 MANPREET BLANCHARD MD Ot Z79.899 OTHER ENVIRONMENTAL TECHNICAL OFFICER (CURRENT) DRUG THERAPY 06/27/2018 MANPREET BLANCHARD MD, Ot C44.219 BASAL CELL CARCINOMA SKIN/ LEFT EAR AND 06/27/2018 MANPREET BLANCHARD MD Ot Z01.810 ENCOUNTER FOR PREPROCEDURAL CARDIOVASCUL 06/27/2018 MANPREET BLANCHARD MD Ot Z01.811 ENCOUNTER FOR PREPROCEDURAL RESPIRATORY 06/27/2018 MANPREET BLANCHARD MD Ot Z01.812 ENCOUNTER FOR PREPROCEDURAL LABORATORY E 06/27/2018 MANPREET BLANCHARD MD Ot Z11.2 ENCOUNTER FOR SCREENING FOR OTHER BACTER 06/27/2018 MANPREET BLANCHARD MD Ot C44.219 BASAL CELL CARCINOMA SKIN/ LEFT EAR AND 06/27/2018 MANPREET BLANCHARD MD Ot 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 06/27/2018 MANPREET BLANCHARD MD Ot I10 ESSENTIAL (PRIMARY) HYPERTENSION 06/27/2018 MANPREET BLANCHARD MD Ot K21.9 GASTRO-ESOPHAGEAL REFLUX DISEASE WITHOUT 06/27/2018 MANPREET BLANCHARD MD Ot L90.5 SCAR CONDITIONS AND FIBROSIS OF SKIN 06/27/2018 MANPREET BLANCHARD MD Ot Z79.82 PENITENTIARY (CURRENT) USE OF ASPIRIN 06/27/2018 MANPREET BLANCHARD MD Ot Z79.899 OTHER ENVIRONMENTAL TECHNICAL OFFICER (CURRENT) DRUG THERAPY 06/30/2018 MANPREET BLANCHARD MD Ot C44.219 BASAL CELL CARCINOMA SKIN/ LEFT EAR AND 06/30/2018 MANPREET BLANCHARD MD Ot 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 06/30/2018 MANPREET BLANCHARD MD Ot I10 ESSENTIAL (PRIMARY) HYPERTENSION 06/30/2018 MANPREET BLANCHARD MD Ot K21.9 GASTRO-ESOPHAGEAL REFLUX DISEASE WITHOUT 06/30/2018 MANPREET BLANCHARD MD Ot L90.5 SCAR CONDITIONS AND FIBROSIS OF SKIN 06/30/2018 MANPREET BLANCHARD MD Ot Z79.82 ENVIRONMENTAL TECHNICAL OFFICER (CURRENT) USE OF ASPIRIN 06/30/2018 MANPREET BLANCHARD MD Ot Z79.899 OTHER PENITENTIARY (CURRENT) DRUG THERAPY 12/20/2018 BETH ZUNIGA MD Ot E78.5 HYPERLIPIDEMIA, UNSPECIFIED 12/20/2018 BETH ZUNIGA MD Ot I10 ESSENTIAL (PRIMARY) HYPERTENSION 12/20/2018 BETH ZUNIGA MD Ot I21.4 NON-ST ELEVATION (NSTEMI) MYOCARDIAL INF 12/20/2018 BETH ZUNIGA MD Ot I25.10 ATHSCL HEART DISEASE OF [place] CORONARY 12/20/2018 BETH ZUNIGA MD Ot K21.9 GASTRO-ESOPHAGEAL REFLUX DISEASE WITHOUT 12/20/2018 BETH ZUNIGA MD Ot Z79.82 PENITENTIARY (CURRENT) USE OF ASPIRIN 12/20/2018 BETH ZUNIGA MD Ot Z79.899 OTHER PENITENTIARY (CURRENT) DRUG THERAPY 12/22/2018 BETH ZUNIGA MD Ot E78.5 HYPERLIPIDEMIA, UNSPECIFIED 12/22/2018 BETH ZUNIGA MD Ot I10 ESSENTIAL (PRIMARY) HYPERTENSION 12/22/2018 BETH ZUNIGA MD Ot I21.4 NON-ST ELEVATION (NSTEMI) MYOCARDIAL INF 12/22/2018 BETH ZUNIGA MD Ot I25.10 ATHSCL HEART DISEASE OF [place] CORONARY 12/22/2018 BETH ZUNIGA MD Ot K21.9 GASTRO-ESOPHAGEAL REFLUX DISEASE WITHOUT 12/22/2018 BETH ZUNIGA MD Ot Z79.82 ENVIRONMENTAL TECHNICAL OFFICER (CURRENT) USE OF ASPIRIN 12/22/2018 BETH ZUNIGA MD Ot Z79.899 OTHER PENITENTIARY (CURRENT) DRUG THERAPY 12/23/2018 BETH ZUNIGA MD Ot E78.5 HYPERLIPIDEMIA, UNSPECIFIED 12/23/2018 BETH ZUNIGA MD, Ot I10 ESSENTIAL (PRIMARY) HYPERTENSION 12/23/2018 BETH ZUNIGA MD, Ot I21.4 NON-ST ELEVATION (NSTEMI) MYOCARDIAL INF 12/23/2018 BETH ZUNIGA MD, Ot I25.10 ATHSCL HEART DISEASE OF [place] CORONARY 12/23/2018 BETH ZUNIGA MD, Ot K21.9 GASTRO-ESOPHAGEAL REFLUX DISEASE WITHOUT 12/23/2018 BETH ZUNIGA MD, Ot Z79.82 ENVIRONMENTAL TECHNICAL OFFICER (CURRENT) USE OF ASPIRIN 12/23/2018 BETH ZUNIGA MD, Ot Z79.899 OTHER PENITENTIARY (CURRENT) DRUG THERAPY 12/31/2018 LANI UREÑA MD, Ot I10 ESSENTIAL (PRIMARY) HYPERTENSION 12/31/2018 LANI UREÑA MD, Ot J18.9 PNEUMONIA, UNSPECIFIED ORGANISM 12/31/2018 LANI UREÑA MD, Ot K21.9 GASTRO-ESOPHAGEAL REFLUX DISEASE WITHOUT 12/31/2018 LANI UREÑA MD, Ot R06.00 DYSPNEA, UNSPECIFIED 12/31/2018 LANI UREÑA MD, Ot R79.89 OTHER SPECIFIED ABNORMAL FINDINGS OF BLO 12/31/2018 LANI UREÑA MD, Ot Z79.82 PENITENTIARY (CURRENT) USE OF ASPIRIN 12/31/2018 LANI UREÑA [...] J18.9 PNEUMONIA, UNSPECIFIED ORGANISM 01/04/2019 LANI UREÑA MD, Ot K21.9 GASTRO-ESOPHAGEAL REFLUX DISEASE WITHOUT 01/04/2019 LANI UREÑA MD, Ot R06.00 DYSPNEA, UNSPECIFIED 01/04/2019 LANI UREÑA MD Ot R79.89 OTHER SPECIFIED ABNORMAL FINDINGS OF BLO 01/04/2019 LANI UREÑA MD Ot Z79.82 PENITENTIARY (CURRENT) USE OF ASPIRIN 01/04/2019 LANI UREÑA MD Ot 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 01/04/2019 LANI UREÑA MD Ot Z87.891 PERSONAL HISTORY OF NICOTINE DEPENDENCE 01/04/2019 LANI UREÑA MD Ot Z95.1 PRESENCE OF AORTOCORONARY BYPASS GRAFT 01/04/2019 LANI UREÑA MD Ot Z98.52 VASECTOMY STATUS 01/06/2019 LANI UREÑA MD Ot I10 ESSENTIAL (PRIMARY) HYPERTENSION 01/06/2019 LANI UREÑA MD Ot J18.9 PNEUMONIA, UNSPECIFIED ORGANISM 01/06/2019 LANI UREÑA MD Ot K21.9 GASTRO-ESOPHAGEAL REFLUX DISEASE WITHOUT 01/06/2019 LANI UREÑA MD Ot R06.00 DYSPNEA, UNSPECIFIED 01/06/2019 LANI UREÑA MD Ot R79.89 OTHER SPECIFIED ABNORMAL FINDINGS OF BLO 01/06/2019 LANI UREÑA MD Ot Z79.82 ENVIRONMENTAL TECHNICAL OFFICER (CURRENT) USE OF ASPIRIN 01/06/2019 LANI UREÑA MD Ot 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 01/06/2019 LANI UREÑA MD Ot Z87.891 PERSONAL HISTORY OF NICOTINE DEPENDENCE 01/06/2019 LANI UREÑA MD Ot Z95.1 PRESENCE OF AORTOCORONARY BYPASS GRAFT 01/06/2019 LANI UREÑA MD Ot Z98.52 VASECTOMY STATUS 01/09/2019 KAREL ESQUEDA MD Ot E78.5 HYPERLIPIDEMIA, UNSPECIFIED 01/09/2019 KAREL ESQUEDA MD Ot I10 ESSENTIAL (PRIMARY) HYPERTENSION 01/09/2019 KAREL ESQUEDA MD Ot I21.9 ACUTE MYOCARDIAL INFARCTION, UNSPECIFIED 01/09/2019 KAREL ESQUEDA MD Ot I25.10 ATHSCL HEART DISEASE OF [place] CORONARY 01/09/2019 KAREL ESQUEDA MD, Ot I25.5 ISCHEMIC CARDIOMYOPATHY 01/09/2019 KAREL ESQUEDA MD, Ot I44.0 ATRIOVENTRICULAR BLOCK, FIRST DEGREE 01/09/2019 KAREL ESQUEDA MD, Ot K21.9 GASTRO-ESOPHAGEAL REFLUX DISEASE WITHOUT 01/09/2019 KAREL ESQUEDA MD, Ot R07.89 OTHER CHEST PAIN 01/09/2019 KAREL ESQUEDA MD, Ot Z79.82 PENITENTIARY (CURRENT) USE OF ASPIRIN 01/09/2019 KAREL ESQUEDA MD, Ot Z87.891 PERSONAL HISTORY OF NICOTINE DEPENDENCE 01/09/2019 KAREL ESQUEDA MD, Ot Z95.1 PRESENCE OF AORTOCORONARY BYPASS GRAFT 01/16/2019 JROY IRVING Ot M79.661 PAIN IN RIGHT LOWER LEG 01/30/2019 Mark Matamoros 414.01 CORONARY ATHEROSCLEROSIS OF [place] CORONARY ARTERY 01/30/2019 Mark Matamoros I25.10 ATHSCL HEART DISEASE OF [place] CORONARY ARTERY W/O ANG PCTRS 01/30/2019 Mark Matamoros V45.81 POSTSURGICAL AORTOCORONARY BYPASS STATUS 01/30/2019 Mark Matamoros Z95.1 PRESENCE OF AORTOCORONARY BYPASS GRAFT 02/01/2019 JORY IRVING Ot M79.661 PAIN IN RIGHT LOWER LEG Procedures Code Description Performed By Performed On [id number] MEASURE OF CARDIAC SAMPL PRESSURE, L H 12/20/2018 [id number] FLUOROSCOPY OF MULT COR ART USING L OSM 12/20/2018 [id number] FLUOROSCOPY OF LEFT HEART USING LOW OSMO 12/20/2018 [id number] FLUOROSCOPY OF THORACIC AORTA USING LOW 12/20/2018 [...] 12/31/18 08:12 BNP level 717.5 pg/mL <100.0 Complete blood count (CBC) with automated white blood cell (WBC) differential - 01/09/19 07:24 Blood leukocytes automated count (number/volume) 5.9 10*3/uL 4.3-11.0 Blood erythrocytes automated count (number/volume) 4.35 10*6/uL 4.35-5.85 Venous blood hemoglobin measurement (mass/volume) 12.2 g/dL 13.3-17.7 Blood hematocrit (volume fraction) 38 % 40-54 Automated erythrocyte mean corpuscular volume 87 [foz_us] 80-99 Automated erythrocyte mean corpuscular hemoglobin (mass per erythrocyte) 28 pg 25-34 Automated erythrocyte mean corpuscular hemoglobin concentration measurement (mass/volume) 32 g/dL 32-36 Automated erythrocyte distribution width ratio 14.1 % 10.0- 14.5 Automated blood platelet count (count/volume) 299 10*3/uL 130-400 Automated blood platelet mean volume measurement 8.6 [foz_us] 7.4-10.4 Automated blood neutrophils/100 leukocytes 54 % 42-75 Automated blood lymphocytes/100 leukocytes 24 % 12-44 Blood monocytes/100 leukocytes 21 % 0-12 Automated blood eosinophils/100 leukocytes 1 % 0-10 Automated blood basophils/100 leukocytes 1 % 0-10 Blood neutrophils automated count (number/volume) 3.2 10*3 1.8-7.8 Blood lymphocytes automated count (number/volume) 1.4 10*3 1.0-4.0 Blood monocytes automated count (number/volume) 1.2 10*3 0.0- 1.0 Automated eosinophil count 0.1 10*3/uL 0.0-0.3 Automated blood basophil count (count/volume) 0.0 10*3/uL 0.0-0.1 PT panel in platelet poor plasma by coagulation assay - 01/09/19 07:24 Prothrombin time (PT) in platelet poor plasma by coagulation assay 15.5 s 12.2-14.7 INR in platelet poor plasma or blood by coagulation assay 1.2 0.8-1.4 Activated partial thromboplastin time (aPTT) in platelet poor plasma bycoagulation assay - 01/09/19 07:24 Activated partial thromboplastin time (aPTT) in platelet poor plasma bycoagulation assay 40 s 24-35 Comprehensive metabolic panel - 01/09/19 07:24 Serum or plasma sodium measurement (moles/volume) 136 mmol/L 135-145 Serum or plasma potassium measurement (moles/volume) 4.2 mmol/L 3.6-5.0 Serum or plasma chloride measurement (moles/volume) 100 mmol/L 98-107 Carbon dioxide 25 mmol/L 21-32 Serum or plasma anion gap determination (moles/volume) 11 mmol/L 5-14 Serum or plasma urea nitrogen measurement (mass/volume) 15 mg/dL 7-18 Serum or plasma creatinine measurement (mass/volume) 1.28 mg/dL 0.60-1.30 Serum or plasma urea nitrogen/creatinine mass ratio 12 NRG Serum or plasma creatinine measurement with calculation of estimated glomerular filtration rate 55 NRG Serum or plasma glucose measurement (mass/volume) 129 mg/dL 70-105 Serum or plasma calcium measurement (mass/volume) 9.2 mg/dL 8.5-10.1 Serum or plasma total bilirubin measurement (mass/volume) 0.4 mg/dL 0.1-1.0 Serum or plasma alkaline phosphatase measurement (enzymatic activity/volume) 91 U/L 40-136 Serum or plasma aspartate aminotransferase measurement (enzymatic activity/volume) 19 U/L 5-34 Serum or plasma alanine aminotransferase measurement (enzymatic activity/volume) 32 U/L 0-55 Serum or plasma protein measurement (mass/volume) 6.8 g/dL 6.4-8.2 Serum or plasma albumin measurement (mass/volume) 4.0 g/dL 3.2-4.5 CALCIUM CORRECTED 9.2 mg/dL 8.5-10.1 Magnesium - 01/09/19 07:24 Magnesium 2.0 mg/dL 1.8-2.4 Serum or plasma troponin i.cardiac measurement (mass/volume) - 01/09/19 07:24 Serum or plasma troponin i.cardiac measurement (mass/volume) 0.057 ng/mL <0.028 Myoglobin, serum - 01/09/19 07:24 Myoglobin, serum 41.8 ng/mL 10.0-92.0 Manual absolute plasma cell count - 01/09/19 07:24 Blood monocytes/100 leukocytes 23 % NRG Manual blood segmented neutrophils/100 leukocytes 40 % NRG Blood band neutrophils/100 leukocytes 3 % NRG Manual blood lymphocytes/100 leukocytes 30 % NRG Manual eosinophils/100 leukocytes in nose 0 % NRG Manual blood basophils/100 leukocytes 0 % NRG Blood lymphocytes variant/100 leukocytes 4 % NRG Blood erythrocyte morphology finding identification NORMAL NRG Serum or plasma lithium measurement (moles/volume) - 01/09/19 07:24 BNP level 206.6 pg/mL <100.0 Fibrin D-dimer FEU measurement in platelet poor plasma (mass/volume) - 01/09/19 07:24 Fibrin D-dimer FEU measurement in platelet poor plasma (mass/volume) 2.83 ug/mL 0.00-0.49 Serum or plasma troponin i.cardiac measurement (mass/volume) - 01/09/19 13:21 Serum or plasma troponin i.cardiac measurement (mass/volume) 0.044 ng/mL <0.028 Encounters ACCT No. Visit Date/Time Discharge Status Pt. Type Provider Facility Loc./Unit Complaint [id number] 01/30/2019 09:16:00 01/30/2019 23:59:00 DIS Outpatient Mark Matamoros [id number] 01/11/2019 15:28:00 01/11/2019 23:59:59 CLS Outpatient JORY IRVING [facility] RAD PAIN IN RIGHT LOWER LEG [id number] 01/09/2019 08:27:00 01/09/2019 18:40:00 DIS Inpatient YIN PITTS, KAREL Rockwell [facility] ICU CHEST PAIN [id number] 12/31/2018 07:42:00 12/31/2018 11:07:00 DIS Emergency ADELITA PITTS, LANI Osman [facility] ER SOA [id number] 12/20/2018 06:37:00 12/20/2018 08:25:00 DIS Inpatient NADIA PITTS, BETH Cunha [facility] ICU CHEST PAIN [id number] 06/23/2018 06:34:00 06/23/2018 12:50:00 DIS Outpatient MANPREET BLANCHARD MD [facility] TRAGUS/HELIX LESIONS [id number] 06/13/2018 09:35:00 06/13/2018 15:00:00 DIS Outpatient MANPREET BLANCHARD MD [facility] PREOP HELIX/TRAGUS LESIONS [id number] 05/11/2018 21:45:00 05/12/2018 00:55:00 DIS Emergency RAMESH RODRIGUEZ DO [facility] ER L EAR BLEEDING [id number] 06/13/2018 09:50:00 Document Registration
[2019-03-05] MEDS ORDERED: cefTRIAXone FOR IV USE 2,000 MG in WATER (STERILE) FOR INJECTION 20 ML IV ONE ×2 (11:15→12:15)
[2019-03-05] MEDS ORDERED: NS IV 1000 ML 1,000 ML IV SCH (11:15)
[2019-03-05] MEDS ORDERED: methylPREDNISolone 125 MG (Solu-MEDROL) VIAL IVP ONE (11:15)
--- NOTE | 2019-03-05 11:21 | ED Cough/URI ---
General Chief Complaint: Cough/Cold/Flu Symptoms Stated Complaint: COUGH,CONGESTION, HAD OPEN HEART SURGERY DECEMBER 22 Nursing Triage Note: PT PRESENTS TO ED WITH COMPLAINTS OF COUGH/CONGESTION X 2WEEKS. Sepsis Screen: No Definite Risk Source: patient Exam Limitations: no limitations History of Present Illness Date Seen by Provider: Mar 05, 2019 Time Seen by Provider: 11:18 Initial Comments This 73-year-old male presents with cough congestion and general malaise for the last 2 weeks. Patient had open-heart surgery 2 months ago. He denies pressure- type chest pain, diaphoresis, or nausea. Patient has had an episode of fluid retention requiring Lasix since his open heart surgery. Allergies and Home Medications Allergies Coded Allergies: adhesive (Verified Allergy, Intermediate, RASH, 01/09/19) Home Medications Amiodarone HCl 200 Mg Tablet, 400 MG PO DAILY, (Reported) TAKES 2 (200MG) TABLETS Apixaban 5 Mg Tablet, 5 MG PO BID, (Reported) Aspirin 81 Mg Tablet.dr, 81 MG PO DAILY, (Reported) Atorvastatin Calcium 40 Mg Tablet, 40 MG PO HS, (Reported) Cefdinir 300 Mg Capsule, 300 MG PO BID, (Reported) 10 DAY SUPPLY FILLED 12-31-18 Cetirizine HCl 10 Mg Tablet, 10 MG PO DAILY, (Reported) Furosemide 40 Mg Tablet, 40 MG PO DAILY, (Reported) #14 TABLETS FILLED 12-29-18 Guaifenesin 600 Mg Tab.er.12h, 600 MG PO DAILY, (Reported) Hydrocodone/Acetaminophen 1 Each Tablet, 1 TAB PO Q4H PRN for PAIN-MODERATE, (Reported) Krill/Om-3/Dha/Epa/Phospho/Ast 1 Each Capsule, 1 CAP PO DAILY, (Reported) Metoprolol Tartrate 50 Mg Tablet, 50 MG PO BID, (Reported) Pantoprazole Sodium 40 Mg Tablet.dr, 40 MG PO DAILY, (Reported) Potassium Chloride 20 Meq Tab.er.prt, 20 MEQ PO DAILY, (Reported) FILLED #14 12-29-18 Patient Home Medication List Home Medication List Reviewed: Yes Review of Systems Review of Systems Constitutional: malaise EENTM: No hearing loss Respiratory: see HPI, cough Cardiovascular: No chest pain Gastrointestinal: No abdominal pain, No nausea, No vomiting Genitourinary: no symptoms reported Musculoskeletal: no symptoms reported Skin: no symptoms reported Psychiatric/Neurological: No Symptoms Reported Hematologic/Lymphatic: No Symptoms Reported Immunological/Allergic: no symptoms reported Past Uzgiapu-Jatomm-Ohdckf Hx Past Med/Social Hx: Reviewed Nursing Past Med/Soc Hx Patient Social History Alcohol Use: Denies Use Recreational Drug Use: No Smoking Status: Former Smoker Type Used: Cigars Former Smoker, Quit: Mar 17, 2005 Recent Foreign Travel: No Contact w/Someone Who Travel: No Recent Infectious Disease Expo: No Recent Hopitalizations: Yes (OPEN HEART 12/20/18) Physical Abuse: No Sexual Abuse: No Mistreated: No Fear: No Immunizations Up To Date Tetanus Booster (TDap): Less than 5yrs Date of Pneumonia Vaccine: Mar 15, 2012 Date of Influenza Vaccine: Apr 27, 2018 Seasonal Allergies Seasonal Allergies: No Past Medical History Surgeries: Yes (SKIN CANCER 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 BLANCHARD) CABG, Vasectomy Respiratory: No Cardiac: Yes (DOUBLE BYPASS) Coronary Artery Disease, Hypertension Neurological: No Reproductive Disorders: No Sexually Transmitted Disease: No HIV/AIDS: No Genitourinary: No Gastrointestinal: Yes Gastroesophageal Reflux Musculoskeletal: No Endocrine: No Loss of Vision: Bilateral Cancer: Yes Skin Did You Recieve Any Treatments: Yes What Type of Treatment Did You: Surgical Intervention Psychosocial: No Integumentary: No Blood Disorders: No Adverse Reaction/Blood Tranf: No (N/A) Family Medical History FH: leukemia 19 FATHER 19 MOTHER No Pertinent Family Hx Physical Exam Vital Signs - First Documented 03/05/19 11:03 Temp 98.6 Pulse 64 Resp 20 B/P (MAP) 159/83 (108) Pulse Ox 96 O2 Delivery Room Air Capillary Refill : Less Than 3 Seconds Height: 6'1.00" Weight: 208lbs. 3.0oz. 94.242735bt; 28.9 BMI Method:Stated General Appearance: WD/WN, mild distress Eyes: Bilateral Eye Normal Inspection HEENT: normal ENT inspection Neck: full range of motion, normal inspection Respiratory: decreased breath sounds Cardiovascular: regular rate, rhythm Gastrointestinal: normal bowel sounds, non tender Extremities: normal range of motion, normal inspection, no pedal edema Neurologic/Psychiatric: no motor/sensory deficits, normal mood/affect, oriented x 3 Skin: normal color, warm/dry Progress/Results/Core Measures Suspected Sepsis Recent Fever Within 48 Hours: No Infection Criteria Present: None New/Unexplained Altered Menta: No Sepsis Screen: No Definite Risk SIRS Temperature:98.6 Pulse: 64 Respiratory Rate: 20 Laboratory Tests 03/05/19 11:30: White Blood Count 7.4 Blood Pressure 159 /83 Mean: 108 Laboratory Tests 03/05/19 11:30: Creatinine 1.12, Platelet Count 208, Total Bilirubin 0.6 Results/Orders Lab Results Laboratory Tests Test 03/05/19 11:30 Range/Units White Blood Count 7.4 4.3-11.0 10^3/uL Red Blood Count 4.53 4.35-5.85 10^6/uL Hemoglobin 12.2 L 13.3-17.7 G/DL Hematocrit 38 L 40-54 % Mean Corpuscular Volume 83 80-99 FL Mean Corpuscular Hemoglobin 27 25-34 PG Mean Corpuscular Hemoglobin Concent 32 32-36 G/DL Red Cell Distribution Width 13.9 10.0-14.5 % Platelet Count 208 130-400 10^3/uL Mean Platelet Volume 9.0 7.4-10.4 FL Neutrophils (%) (Auto) 57 42-75 % Lymphocytes (%) (Auto) 18 12-44 % Monocytes (%) (Auto) 20 H 0-12 % Eosinophils (%) (Auto) 5 0-10 % Basophils (%) (Auto) 0 0-10 % Neutrophils # (Auto) 4.2 1.8-7.8 X 10^3 Lymphocytes # (Auto) 1.3 1.0-4.0 X 10^3 Monocytes # (Auto) 1.5 H 0.0-1.0 X 10^3 Eosinophils # (Auto) 0.3 0.0-0.3 10^3/uL Basophils # (Auto) 0.0 0.0-0.1 10^3/uL Neutrophils % (Manual) 57 % Lymphocytes % (Manual) 26 % Monocytes % (Manual) 14 % Eosinophils % (Manual) 3 % Basophils % (Manual) 0 % Band Neutrophils 0 % Blood Morphology Comment NORMAL Sodium Level 139 135-145 MMOL/L Potassium Level 3.9 3.6-5.0 MMOL/L Chloride Level 103 98-107 MMOL/L Carbon Dioxide Level 22 21-32 MMOL/L Anion Gap 14 5-14 MMOL/L Blood Urea Nitrogen 14 7-18 MG/DL Creatinine 1.12 0.60-1.30 MG/DL Estimat Glomerular Filtration Rate > 60 BUN/Creatinine Ratio 13 Glucose Level 120 H 70-105 MG/DL Calcium Level 9.4 8.5-10.1 MG/DL Corrected Calcium 9.5 8.5-10.1 MG/DL Total Bilirubin 0.6 0.1-1.0 MG/DL Aspartate Amino Transf (AST/SGOT) 11 5-34 U/L Alanine Aminotransferase (ALT/SGPT) 16 0-55 U/L Alkaline Phosphatase 102 40-136 U/L B-Type Natriuretic Peptide 430.8 H <100.0 PG/ML Total Protein 6.7 6.4-8.2 GM/DL Albumin 3.9 3.2-4.5 GM/DL My Orders Orders - ETIENNE VERMA MD Cbc With Automated Diff (03/05/19 11:11) Comprehensive Metabolic Panel (03/05/19 11:11) BNP (03/05/19 11:11) Ekg Tracing (03/05/19 11:11) Chest 1 View, Ap/Pa Only (03/05/19 11:11) Ns Iv 1000 Ml (Sodium Chloride 0.9%) (03/05/19 11:15) Manual Differential (03/05/19 11:30) Ceftriaxone For Iv Use (Rocephin For I (03/05/19 12:15) Medications Given in ED Current Medications Medications Dose Ordered Sig/Alana Route Start Time Stop Time Status Last Admin Dose Admin Ceftriaxone Sodium 2000 mg/ Sterile Water 20 ml @ 240 mls/hr ONCE ONCE IV 03/05/19 12:15 03/05/19 12:19 DC 03/05/19 12:36 240 MLS/HR Vital Signs/I&O 03/05/19 03/05/19 11:03 11:03 Temp 98.6 Pulse 64 Resp 20 B/P (MAP) 159/83 (108) Pulse Ox 96 O2 Delivery Room Air Capillary Refill : Less Than 3 Seconds Blood Pressure Mean: 108 Progress Note : Time: 12:39 Progress Note Patient's chest x-ray demonstrated an infiltrate on the right consistent with an early pneumonia. The patient's BNP is in the mid 300s. I asked the patient to stay in the hospital in an observation bed overnight so we did more adequately treat him. Patient was not in agreement with this treatment plan. I gave the patient 2 g of Rocephin IV and 40 mg of Lasix. Started the patient on azithromycin 500 mg daily. Lastly follow up closely with his primary care physician, Dr. Ragland, tomorrow. I asked him to return if any problems or questions. Departure Impression Primary Impression: Pneumonia Qualified Codes: J18.9 - Pneumonia, unspecified organism Additional Impression: CHF (congestive heart failure) Qualified Codes: I50.42 - Chronic combined systolic (congestive) and diastolic (congestive) heart failure Disposition: HOME, SELF-CARE Condition: Improved Departure-Patient Inst. Decision time for Depature: 12:43 Referrals: SUJATHA RAGLAND MD (PCP/Family) Primary Care Physician Patient Instructions: Community-Acquired Pneumonia in Adults Add. Discharge Instructions: Follow-up with Dr. Ragland tomorrow. Zithromax and Lasix as prescribed. Return if any problems or questions. All discharge instructions reviewed with patient and/or family. Voiced understanding. ETIENNE VERMA MD Mar 05, 2019 11:21
[2019-03-05 11:39] LABS: BASOPHILS % (AUTO) 0 % (0-10); EOSINOPHILS # (AUTO) 0.3 10^3/uL (0.0-0.3); EOSINOPHILS % (AUTO) 5 % (0-10); HEMATOCRIT 38 % (40-54); HEMOGLOBIN 12.2 G/DL (13.3-17.7); LYMPHOCYTES # (AUTO) 1.3 X 10^3 (1.0-4.0); LYMPHOCYTES % (AUTO) 18 % (12-44); MEAN CORPUSCULAR HEMOGLOBIN 27 PG (25-34); MEAN CORPUSCULAR HGB CONC 32 G/DL (32-36); MEAN CORPUSCULAR VOLUME 83 FL (80-99); MONOCYTES # (AUTO) 1.5 X 10^3 (0.0-1.0); MONOCYTES % (AUTO) 20 % (0-12); NEUTROPHILS # (AUTO) 4.2 X 10^3 (1.8-7.8); NEUTROPHILS % (AUTO) 57 % (42-75); PLATELET COUNT 208 10^3/uL (130-400); RED CELL DISTRIBUTION WIDTH 13.9 % (10.0-14.5); WHITE BLOOD COUNT 7.4 10^3/uL (4.3-11.0)
--- NOTE | 2019-03-05 11:53 | Diagnostic Imaging Report ---
Portable AP chest at 1136h. INDICATION: Cough, congestion The cardiomegaly and the sternotomy wires and surgical clips noted on the prior exam of 01/09/2019 are again evident and no different. The chronic pulmonary changes seen previously are also again visualized. There is a vague area of increased density now present in the right lung base. This finding may be secondary to superimposition. The possibility that there is an element of mild pneumonia/atelectasis in this area should to be considered. The lungs are otherwise clear. There is no pleural effusion identified. The mediastinum is not widened. The osseous structures are intact. IMPRESSION: 1. There is a question of mild pneumonia/atelectasis involving the right lung base. Clinical follow up is recommended. 2. There is no acute cardiopulmonary abnormality noted otherwise. Dictated by: Dictated on workstation # [id number]
[2019-03-05 11:55] LABS: ALANINE AMINOTRANSFERASE 16 U/L (0-55); ALBUMIN 3.9 GM/DL (3.2-4.5); ALKALINE PHOSPHATASE 102 U/L (40-136); BILIRUBIN,TOTAL 0.6 MG/DL (0.1-1.0); BUN/CREATININE RATIO 13; CALCIUM 9.4 MG/DL (8.5-10.1); CARBON DIOXIDE 22 MMOL/L (21-32); CHLORIDE 103 MMOL/L (98-107); CREATININE SERUM 1.12 MG/DL (0.60-1.30); GFR ESTIMATED > 60; GLUCOSE 120 MG/DL (70-105); POTASSIUM 3.9 MMOL/L (3.6-5.0); SODIUM 139 MMOL/L (135-145); TOTAL PROTEIN 6.7 GM/DL (6.4-8.2)
[2019-03-05 12:02] LABS: BAND NEUTROPHILS 0 %; BASOPHILS % (MANUAL) 0 %; EOSINOPHILS % (MANUAL) 3 %; LYMPHOCYTES % (MANUAL) 26 %; MONOCYTES % (MANUAL) 14 %; NEUTROPHILS % (MANUAL) 57 %; RBC MORPH NORMAL
[2019-03-05] MEDS ORDERED: FUROSEMIDE 40 MG/4 ML INJ (LASIX) IVP ONE (12:45)
[2019-03-05 13:00] VITALS: BP 163/92
== END 2019-03-05 13:00 | disposition home or self-care (01) ==
LOC: EDUNIT# 10:36 → ER 10:37
DX: J18.9 Pneumonia, unspecified organism (principal); I11.0 Hypertensive heart disease with heart failure; I50.9 Heart failure, unspecified; I25.10 Atherosclerotic heart disease of native coronary artery without angina pectoris; K21.9 Gastro-esophageal reflux disease without esophagitis; Z95.1 Presence of aortocoronary bypass graft; Z88.8 Allergy status to other drugs, medicaments and biological substances; Z79.82 Long term (current) use of aspirin; Z87.891 Personal history of nicotine dependence; Z85.828 Personal history of other malignant neoplasm of skin; Z80.6 Family history of leukemia
CPT/HCPCS: 36415; 71045; 80053; 83880; 85007; 85027; 93005

== ENCOUNTER → 2019-12-21 | Outpatient (CLI) | payer MEDICARE, OTHER ==
[~2019-12-21] MED LIST changes: +ACHD5005 PO; -HYDR-3812 PO
[2019-12-21 08:02] LABS: BASOPHILS % (AUTO) 0 % (0-10); EOSINOPHILS # (AUTO) 0.2 10^3/uL (0.0-0.3); EOSINOPHILS % (AUTO) 3 % (0-10); HEMATOCRIT 43 % (40-54); LYMPHOCYTES # (AUTO) 1.9 X 10^3 (1.0-4.0); LYMPHOCYTES % (AUTO) 23 % (12-44); MEAN CORPUSCULAR HEMOGLOBIN 27 PG (25-34); MEAN CORPUSCULAR HGB CONC 33 G/DL (32-36); MEAN CORPUSCULAR VOLUME 84 FL (80-99); MEAN PLATELET VOLUME 9.1 FL (7.4-10.4); MONOCYTES # (AUTO) 1.2 X 10^3 (0.0-1.0); MONOCYTES % (AUTO) 14 % (0-12); NEUTROPHILS % (AUTO) 60 % (42-75); PLATELET COUNT 229 10^3/uL (130-400); RED CELL DISTRIBUTION WIDTH 13.5 % (10.0-14.5); WHITE BLOOD COUNT 8.4 10^3/uL (4.3-11.0)
[2019-12-21 08:13] LABS: ALBUMIN 4.2 GM/DL (3.2-4.5); CHLORIDE 104 MMOL/L (98-107); POTASSIUM 4.1 MMOL/L (3.6-5.0); SODIUM 140 MMOL/L (135-145)
[2019-12-21 08:14] LABS: CALCIUM 9.4 MG/DL (8.5-10.1)
[2019-12-21 08:15] LABS: GLUCOSE 109 MG/DL (70-105); TOTAL PROTEIN 7.2 GM/DL (6.4-8.2); TRIGLYCERIDES 152 MG/DL (<150); VLDL CHOLESTEROL 30 MG/DL (5-40)
[2019-12-21 08:16] LABS: CARBON DIOXIDE 25 MMOL/L (21-32)
[2019-12-21 08:17] LABS: BILIRUBIN,TOTAL 0.5 MG/DL (0.1-1.0)
[2019-12-21 08:19] LABS: ALKALINE PHOSPHATASE 88 U/L (40-136); CREATININE SERUM 1.06 MG/DL (0.60-1.30); GFR ESTIMATED > 60
[2019-12-21 08:20] LABS: BUN/CREATININE RATIO 11; CHOLESTEROL 121 MG/DL (< 200)
[2019-12-21 08:21] LABS: HDL CHOLESTEROL 32 MG/DL (40-60)
[2019-12-21 08:22] LABS: ALANINE AMINOTRANSFERASE 18 U/L (0-55)
[2019-12-21 08:37] LABS: ERYTHROCYTE SEDIMENTATION RATE 10 MM/HR (0-30)
== END ==
LOC: CARD 07:44
PROVIDERS: ATTEND Internal Medicine Cardiovascular Disease
DX: I25.10 Atherosclerotic heart disease of native coronary artery without angina pectoris (principal); I48.0 Paroxysmal atrial fibrillation; R53.83 Other fatigue; I77.89 Other specified disorders of arteries and arterioles; I25.5 Ischemic cardiomyopathy; G47.33 Obstructive sleep apnea (adult) (pediatric); I34.0 Nonrheumatic mitral (valve) insufficiency
CPT/HCPCS: 36415; 80053; 80061; 83735; 84443; 85025; 85652; 93225; 93226; 93306

== ENCOUNTER → 2020-04-12 | Outpatient (CLI) | payer MEDICARE, OTHER ==
[~2020-04-12] MED LIST changes: +ASPI-1238 PO; -ASPI-983 PO; -PANT40TA3 PO; +PANT40TA52 PO
== END ==
LOC: LABNPT 05:55
PROVIDERS: ATTEND Family Medicine
DX: R50.9 Fever, unspecified (principal); R05 Cough; Z20.828 Contact with and (suspected) exposure to other viral communicable diseases
CPT/HCPCS: 87635

== ENCOUNTER → 2020-10-03 | Outpatient (CLI) | payer MEDICARE, OTHER ==
[~2020-10-03] MED LIST changes: -AMIO200T4 PO; +AMIO200T6 PO
== END ==
LOC: CARD 08:53
PROVIDERS: ATTEND Internal Medicine Cardiovascular Disease
DX: I48.0 Paroxysmal atrial fibrillation (principal); I51.7 Cardiomegaly; I50.31 Acute diastolic (congestive) heart failure
CPT/HCPCS: 93225; 93226; 93306

== ENCOUNTER → 2021-06-30 | Outpatient (CLI) | payer MEDICARE, OTHER ==
[~2021-06-30] MED LIST changes: -AMIO200T6 PO; +AMIO200T65 PO; +POTA-179 PO; -POTA20TA15 PO
--- NOTE | 2021-06-30 14:21 | Diagnostic Imaging Report ---
INDICATION: Right ankle pain post fall. TECHNIQUE/COMPARISON: AP, oblique, and lateral views of the right ankle were obtained at 1:54 PM. There is no prior study for comparison. FINDINGS: There is an acute oblique fracture of the distal fibula at the level of the ankle joint with mild displacement. No other bony abnormality is seen. The ankle joint appears in good alignment. IMPRESSION: Acute oblique fracture of the distal fibula as above with mild displacement. Dictated by: Dictated on workstation # [id number]
== END ==
LOC: RAD 13:10
PROVIDERS: ATTEND Family Medicine
DX: S82.431A Displaced oblique fracture of shaft of right fibula, initial encounter for closed fracture (principal); W19.XXXA Unspecified fall, initial encounter
CPT/HCPCS: 73610

== ENCOUNTER → 2021-07-16 | Outpatient (CLI) | payer MEDICARE, OTHER ==
--- NOTE | 2021-07-16 08:47 | Diagnostic Imaging Report ---
INDICATION: Fracture. Right ankle pain. FINDINGS: Three views of the right ankle show a fracture of the distal fibula just above the level of the ankle joint. This has 6-7 mm of displacement compared to 4 mm on the 06/30/2021 study. There may be a small amount of calcified callus present. The ankle joint is not widened. IMPRESSION: There may be early healing of the right fibular fracture. There is mild displacement. Dictated by: Dictated on workstation # [id number]
== END ==
LOC: RAD FS 08:18
PROVIDERS: ATTEND Nurse Practitioner
DX: S82.831D Other fracture of upper and lower end of right fibula, subsequent encounter for closed fracture with routine healing (principal); S93.421D Sprain of deltoid ligament of right ankle, subsequent encounter; M17.12 Unilateral primary osteoarthritis, left knee
CPT/HCPCS: 73610

== ENCOUNTER → 2021-08-06 | Outpatient (CLI) | payer MEDICARE, OTHER ==
--- NOTE | 2021-08-06 09:51 | Diagnostic Imaging Report ---
INDICATION: Right ankle fracture. TIME OF EXAM: 9:29 AM Comparison is made with prior radiograph from 07/16/2021. FINDINGS: Distal fibular fracture appears similar to prior exam. Fracture line remains clearly visible. There may be some minimal callus formation present. Ankle mortise is maintained. Talar dome is smooth. No new fractures seen. IMPRESSION: Healing distal fibular fracture. However, fracture line remains clearly visible. Dictated by: Dictated on workstation # [id number]
== END ==
LOC: RAD FS 09:10
PROVIDERS: ATTEND Nurse Practitioner
DX: S82.301D Unspecified fracture of lower end of right tibia, subsequent encounter for closed fracture with routine healing (principal); X58.XXXD Exposure to other specified factors, subsequent encounter
CPT/HCPCS: 73610

== ENCOUNTER → 2021-09-01 | Outpatient (CLI) | payer MEDICARE, OTHER ==
--- NOTE | 2021-09-01 13:16 | Diagnostic Imaging Report ---
HISTORY: Cough, shortness of air, history of bronchitis. COMPARISON: 12/31/2018 TECHNIQUE: 2 views of the chest. FINDINGS: Lung volumes are mildly large. There is chronic scarring in the lung bases. No new consolidation is seen. There is no pleural effusion or pneumothorax. The cardiac silhouette is stable in size. Sternotomy wires and post-CABG changes are seen. There are degenerative changes in the thoracic spine. IMPRESSION: 1. Chronic findings in the chest with no new consolidation seen. Dictated by: Dictated on workstation # [id number]
== END ==
LOC: RAD 11:06
PROVIDERS: ATTEND Nurse Practitioner Family
DX: J42 Unspecified chronic bronchitis (principal)
CPT/HCPCS: 71046

== ENCOUNTER → 2021-09-10 | Outpatient (CLI) | payer MEDICARE, OTHER ==
--- NOTE | 2021-09-10 10:58 | Diagnostic Imaging Report ---
Indication: Follow-up of right fibular fracture. Comparison with 08/06/2021. FINDINGS: Minimally displaced fracture of the distal fibula is again demonstrated. There has been some very early callus formation. Fracture lines are still visible. Ankle mortise shows good alignment. Syndesmosis is not widened. IMPRESSION: There is early healing of the minimally displaced distal fibular fracture. Dictated by: Dictated on workstation # [id number]
== END ==
LOC: RAD FS 08:59
PROVIDERS: ATTEND Nurse Practitioner
DX: S82.891D Other fracture of right lower leg, subsequent encounter for closed fracture with routine healing (principal); X58.XXXD Exposure to other specified factors, subsequent encounter
CPT/HCPCS: 73610

== ENCOUNTER 2022-01-27 02:35 | Inpatient (IN) | payer MEDICARE, OTHER ==
[~2022-01-27] VITALS: Ht 185.5 cm; Wt 104.1 kg
[2022-01-27] MEDS ORDERED: CATHETER FLUSH 10 ML SYR IV PRN (05:30)
[2022-01-27] MEDS ORDERED: NS 100 ML (IVPB) BAG IV ONE (05:30)
[2022-01-27] MEDS ORDERED: IOHEXOL 350 MG/ML 100 ML (OMNIPAQUE 350) VIAL IV ONE (05:30)
[2022-01-27] MEDS ORDERED: methylPREDNISolone 125 MG (Solu-MEDROL) VIAL IVP ONE (06:00)
--- NOTE | 2022-01-27 06:13 | ED Respiratory ---
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 states he's not felt well all day Source: patient (RAMESH RODRIGUEZ DO) History of Present Illness Date Seen by Provider: Jan 27, 2022 Time Seen by Provider: 02:36 Initial Comments PT ARRIVES VIA POV FROM HOME WITH STATES HE BEGAN FEELING SHORT OF BREATH, HAVING CHILLS AND COUGHING 3 HOURS AGO HAS NOT CHECKED HIS TEMP AT ANY TIME HAS NOT TAKEN ANY MEDICATIONS FOR SYMPTOMS MUCH LATER, PT NOW STATES THAT HE "JUST HASN'T FELT GOO FOR THE LAST 3-5 DAYS" --STATES "NO ENERGY BECAUSE HE HAS BEEN SHORT OF BREATH NO CHEST PAIN AT ANY TIME NO PALPITATIONS NO PAIN WITH BREATHING NO SWEATS NO INCREASED SWELLING IN LEGS/FEET AT THIS TIME, BUT STATES THAT HIS RIGHT FOOT/ANKLE/LEG HAVE BEEN A LITTLE SWOLLEN SINCE HE BROKE HIS ANKLE EARLIER THIS YEAR. HE WAS WHEELCHAIR BOUND FOR A COUPLE OF MONTHS, AND THEN RECENTLY HAD THE BRACE REMOVED. NO CALF PAIN NO DIZZINESS OR SYNCOPE NO GI SYMPTOMS PT HAS HISTORY OF NSTEMI, AND HAD 2 VESSEL CABG 11/2018 PT ALSO HAS HISTORY OF ATRIAL FIBRILLATION PT IS ON ELQUIS ( STATES THAT THEY WILL BE CHANGING THAT TO XARELTO IN THE NEAR FUTURE) PT HAS NEVER SMOKED, AND NEVER BEEN DX WITH COPD/ASTHMA, ETC PT HAD PNEUMONIA IN THE PAST-FEW YEARS AGO, AND HE STATES THAT HE FEELS LIKE HE DID WHEN HE HAS HAD PNEUMONIA PT HAS HAD COVID-19 VACCINES X 4 PCP: DR. BUCKLEY ACCOUNTS PAYABLE ACCOUNTANT: DR ZUNIGA (RAMESH RODRIGUEZ DO) Allergies and Home Medications Allergies Coded Allergies: adhesive (Verified Allergy, Intermediate, RASH, 01/09/19) Patient Home Medication List Home Medication List Reviewed: Yes (SAMUEL SADLER) Amiodarone HCl (Amiodarone HCl) 200 Mg Tablet, 400 MG PO DAILY, (Reported) Entered as Reported by: GABBY COUGHLIN on 01/09/19 1158 Apixaban (Eliquis) 5 Mg Tablet, 5 MG PO BID, (Reported) Entered as Reported by: GABBY COUGHLIN on 01/09/19 1158 Aspirin (Aspirin EC) 81 Mg Tablet.dr, 81 MG PO DAILY, (Reported) Entered as Reported by: GABBY COUGHLIN on 01/09/19 1158 Atorvastatin Calcium (Atorvastatin Calcium) 40 Mg Tablet, 40 MG PO HS, (Reported) Entered as Reported by: GABBY COUGHLIN on 01/09/19 1158 Cefdinir (Cefdinir) 300 Mg Capsule, 300 MG PO BID, (Reported) Entered as Reported by: GABBY COUGHLIN on 01/09/19 1158 Cetirizine HCl (Cetirizine HCl) 10 Mg Tablet, 10 MG PO DAILY, (Reported) Entered as Reported by: FLACO HENDERSON on 06/13/18 0954 Furosemide (Furosemide) 40 Mg Tablet, 40 MG PO DAILY, (Reported) Entered as Reported by: GABBY COUGHLIN on 01/09/19 115 Guaifenesin (Mucinex) 600 Mg Tab.er.12h, 600 MG PO DAILY, (Reported) Entered as Reported by: GABBY COUGHLIN on 01/09/19 115 Hydrocodone Bit/Acetaminophen (Lortab 5 Mg Tablet) 1 Each Tablet, 1 TAB PO Q4H PRN for PAIN-MODERATE, (Reported) Entered as Reported by: GABBY COUGHLIN on 01/09/19 1200 Krill/Om-3/Dha/Epa/Phospho/Ast (Megared Clark-3 Krill Oil Sfgl) 1 Each Capsule, 1 CAP PO DAILY, (Reported) Entered as Reported by: FLACO HENDERSON on 06/13/18 0952 Metoprolol Tartrate (Metoprolol Tartrate) 50 Mg Tablet, 50 MG PO BID, (Reported) Entered as Reported by: GABBY COUGHLIN on 01/09/19 115 Pantoprazole Sodium (Pantoprazole Sodium) 40 Mg Tablet.dr, 40 MG PO DAILY, (Reported) Entered as Reported by: FLACO HENDERSON on 06/13/18 0952 Potassium Chloride (Potassium Chloride) 20 Meq Tab.er.prt, 20 MEQ PO DAILY, (Reported) Entered as Reported by: GABBY COUGHLIN on 01/09/19 115 Review of Systems Review of Systems Constitutional: see HPI, chills, malaise EENTM: no symptoms reported Respiratory: see HPI, cough, short of breath Cardiovascular: No chest pain; edema; No palpitations, No syncope; vascular heart diseas Gastrointestinal: no symptoms reported; No abdominal pain, No diarrhea, No nausea, No vomiting Genitourinary: no symptoms reported Musculoskeletal: see HPI Skin: no symptoms reported Psychiatric/Neurological: No Symptoms Reported Hematologic/Lymphatic: No Symptoms Reported Immunological/Allergic: no symptoms reported (RAMESH RODRIGUEZ DO) Past Vkwsnyb-Tdyftv-Wnqhyj Hx Patient Social History Tobacco Use?: No Smokeless Tobacco Frequency: Never a User Use of E-Cig and/or Vaping Justin: Never a User Substance use?: No Alcohol Use?: No (RAMESH RODRIGUEZ DO) Immunizations Up To Date Tetanus Booster (TDap): Less than 5yrs Influenza Vaccine Up-to-Date: Yes; Up-to-Date (RAMESH RODRIGUEZ DO) Seasonal Allergies Seasonal Allergies: No (RAMESH RODRIGUEZ DO) Past Medical History Surgeries: Yes (SKIN CANCER 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 BLANCHARD) Cardiac, CABG, Vasectomy Respiratory: No Cardiac: Yes (2 VESSEL CABG) Atrial Fibrillation, Coronary Artery Disease, Hypertension Neurological: No Reproductive Disorders: No Sexually Transmitted Disease: No HIV/AIDS: No Genitourinary: No Gastrointestinal: Yes Gastroesophageal Reflux Musculoskeletal: Yes (RIGHT ANKLE FX 08/2021) Fractures Endocrine: No HEENT: Yes Loss of Vision: Bilateral Cancer: Yes Skin Did You Recieve Any Treatments: Yes What Type of Treatment Did You: Surgical Intervention 05/2018 Psychosocial: No Integumentary: No Blood Disorders: No Adverse Reaction/Blood Tranf: No (N/A) (RAMESH RODRIGUEZ DO) Family Medical History FH: leukemia 19 FATHER 19 MOTHER No Pertinent Family Hx PAST SURGICAL HISTORY: -2 VESSEL CABG 11/2018 (RAMESH RODRIGUEZ DO) Physical Exam Vital Signs - First Documented 01/27/22 02:35 Temp 38.3 Pulse 82 Resp 20 B/P (MAP) 204/94 (130) Pulse Ox 100 O2 Delivery OxyMask O2 Flow Rate 10.00 (SAMUEL SADLER) Capillary Refill : Less Than 3 Seconds (RAMESH RODRIGUEZ DO) Height: 6'1.00" Weight: 208lbs. 3.0oz. 94.954572vd; 140.00 BMI Method:Stated General Appearance: WD/WN, other (MILDLY DYSPNEIC, BUT TALKS NON-STOP--PT VERY PLEASANT AND TALKS AT LENGTH ABOUT EVERYTHING EXCEPT WHY HE IS HERE.ABLE TO TALK IN SHORT SENTENCES. 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, no motor/sensory deficits, alert, normal mood/affect, oriented x 3 Skin: normal color, warm/dry (JENNIFER,RAMESH K DO) Focused Exam Sepsis Stage: Sepsis Possible Source: Pulmonary (JENNIFER,RAMESH K DO) Lactate Level 01/27/22 02:46: Lactic Acid Level 1.95 (SAMUEL SADLER) Time of Focused Exam: 05:00 Respiratory: Normal Breath Sounds, No Accessory Muscle Use, No Respiratory Distress Cardiovascular: Regular Rate, Rhythm, No JVD, No Murmur, Normal Peripheral Pulses Capillary Refill: Less Than 3 Seconds Skin: normal color, warm/dry (JENNIFER,RAMESH K DO) Lactic Acid Level Laboratory Tests Test 01/27/22 02:46 Lactic Acid Level 1.95 MMOL/L (0.50-2.00) (SAMUEL SADLER) Within 3hrs of presentation: Admin fluids, Admin ABX, Blood cultures prior to ABX's, Focus exam, Lactate level (JENNIFER,RAMESH K DO) Progress/Results/Core Measures Suspected Sepsis SIRS Temperature: Pulse: 82 Respiratory Rate: 20 Blood Pressure 204 /94 Mean: 130 (JENNIFER,RAMESH K DO) Results/Orders Lab Results Laboratory Tests Test 01/27/22 02:46 Range/Units White Blood Count 14.6 H 4.3-11.0 10^3/uL Red Blood Count 4.92 4.30-5.52 10^6/uL Hemoglobin 13.4 13.3-17.7 g/dL Hematocrit 43 40-54 % Mean Corpuscular Volume 87 80-99 fL Mean Corpuscular Hemoglobin 27 25-34 pg Mean Corpuscular Hemoglobin Concent 32 32-36 g/dL Red Cell Distribution Width 13.3 10.0-14.5 % Platelet Count 190 130-400 10^3/uL Mean Platelet Volume 10.3 9.0-12.2 fL Immature Granulocyte % (Auto) 1 % Neutrophils (%) (Auto) 88 H 42-75 % Lymphocytes (%) (Auto) 3 L 12-44 % Monocytes (%) (Auto) 8 0-12 % Eosinophils (%) (Auto) 1 0-10 % Basophils (%) (Auto) 0 0-10 % Neutrophils # (Auto) 12.9 H 1.8-7.8 X 10^3 Lymphocytes # (Auto) 0.4 L 1.0-4.0 X 10^3 Monocytes # (Auto) 1.2 H 0.0-1.0 X 10^3 Eosinophils # (Auto) 0.1 0.0-0.3 10^3/uL Basophils # (Auto) 0.1 0.0-0.1 10^3/uL Immature Granulocyte # (Auto) 0.1 0.0-0.1 10^3/uL Erythrocyte Sedimentation Rate 12 0-30 MM/HR Prothrombin Time 15.1 H 12.2-14.7 SEC INR Comment 1.1 0.8-1.4 Activated Partial Thromboplast Time 31 24-35 SEC D-Dimer 0.42 0.00-0.49 UG/ML Blood Gas Puncture Site LEFT RADIAL Blood Gas Patient Temperature 36.0 Arterial Blood pH 7.41 7.37-7.43 Arterial Blood Partial Pressure CO2 38 35-45 MMHG Arterial Blood Partial Pressure O2 127 H 79-93 MMHG Arterial Blood HCO3 24 23-27 MMOL/L Arterial Blood Total CO2 24.9 21.0-31.0 MMOL/L Arterial Blood Oxygen Saturation 99 94-100 % Arterial Blood Base Excess -0.2 -2.5-2.5 MMOL/L Bienvenido Test POSITIVE Blood Gas Ventilator Setting NO Blood Gas Inspired Oxygen 28% Sodium Level 138 135-145 MMOL/L Potassium Level 3.9 3.6-5.0 MMOL/L Chloride Level 101 98-107 MMOL/L Carbon Dioxide Level 23 21-32 MMOL/L Anion Gap 14 5-14 MMOL/L Blood Urea Nitrogen 13 7-18 MG/DL Creatinine 1.05 0.60-1.30 MG/DL Estimat Glomerular Filtration Rate 73 BUN/Creatinine Ratio 12 Glucose Level 156 H 70-105 MG/DL Lactic Acid Level 1.95 0.50-2.00 MMOL/L Calcium Level 9.8 8.5-10.1 MG/DL Corrected Calcium 9.6 8.5-10.1 MG/DL Total Bilirubin 0.8 0.1-1.0 MG/DL Aspartate Amino Transf (AST/SGOT) 11 5-34 U/L Alanine Aminotransferase (ALT/SGPT) 13 0-55 U/L Alkaline Phosphatase 83 40-136 U/L Troponin I < 0.028 <0.028 NG/ML B-Type Natriuretic Peptide 168.9 H <100.0 PG/ML Total Protein 7.5 6.4-8.2 GM/DL Albumin 4.3 3.2-4.5 GM/DL Procalcitonin 0.03 <0.10 NG/ML Influenza Type A (RT-PCR) Not Detected Not Detecte Influenza Type B (RT-PCR) Not Detected Not Detecte SARS-CoV-2 RNA (RT-PCR) Not Detected Not Detecte (SAMUEL SADLER) Medications Given in ED Current Medications Medications Dose Ordered Sig/Alana Route Start Time Stop Time Status Last Admin Dose Admin Iohexol 100 ml ONCE ONCE IV 01/27/22 05:30 01/27/22 05:31 DC 01/27/22 05:25 90 ML Methylprednisolone Sodium Succinate 125 mg ONCE ONCE IVP 01/27/22 06:00 01/27/22 06:01 DC 01/27/22 06:10 125 MG Sodium Chloride 10 ml NEEDED PRN IV 01/27/22 05:30 01/27/22 05:25 10 ML Sodium Chloride 100 ml ONCE ONCE IV 01/27/22 05:30 01/27/22 05:31 DC 01/27/22 05:25 80 ML (SAMUEL SADLER) Vital Signs/I&O 01/27/22 02:35 Temp 38.3 Pulse 82 Resp 20 B/P (MAP) 204/94 (130) Pulse Ox 100 O2 Delivery OxyMask O2 Flow Rate 10.00 (SAMUEL SADLER) Vital Signs/I&O Capillary Refill : Less Than 3 Seconds (RAMESH RODRIGUEZ DO) Blood Pressure Mean: 130 Progress Note : Progress Note PLACED IN ISOLATION ROOM PPE WORN COVID AND FLU TESTING DONE SEPSIS PROTOCOL INITIATED INITIAL O2 SAT 77-78% ON ROOM AIR PLACED ON OXIMASK AT 10L AND O2 SATS UP TO 96-98% PT NO LONGER DYSPNEIC RARE COUGH DURING ER STAY TEMP IS 101 ON ARRIVAL--GIVEN TYLENOL AND MOTRIN ALSO GIVEN IV FLUIDS AND SOLU-MEDROL BP IN 200'S SYSTOLIC ON ARRIVAL, DOWN TO 150'S WITHOUT TREATMENT, AFTER RESPIRATIONS AND O2 SATS IMPROVED. NO DETERIORATION IN PT'S CONDITION DURING ER STAY. (RAMESH RODRIGUEZ DO) Progress Note : Time: 07:23 Progress Note A discrepancy report from radiology was filed and noted indeterminate renal lesions bilaterally. They recommend a dedicated renal mass protocol for further evaluation. This can be done at a later date. Radiology also noted some prominent mediastinal lymph nodes which are likely related to pneumonitis/pulmonary process that is bringing him into the hospital today. This was communicated to the patient and recommended for outpatient follow-up renal mass protocol. (SAMUEL SADLER) ECG Initial ECG Impression Date: Jan 27, 2022 Initial ECG Impression Time: 02:55 Initial ECG Rate: 82 Initial ECG Rhythm: Normal Sinus Initial ECG Impression: Nonspecific Changes (RAMESH RODRIGUEZ DO) Diagnostic Imaging Comments CXR--MILD BILATERAL INFILTRATES? PENDING RADIOLOGIST REVIEW CT CHEST ANGIOGRAM--PER [facility] VIA FAX AT 3945 -NO P.E. -DEPENDENT ATELECTASIS -MOSAIC GROUND GLASS ATTENUATION, CONCERNING FOR AIR TRAPPING/COPD -NO FOCAL INFILTRATE OR PLEURAL EFFUSION -CHOLELITHIASIS -BILATERAL RENAL CYSTS -LEFT ADRENAL NODULE -SMALL HIATAL HERNIA. Reviewed: Reviewed by Me (RAMESH RODRIGUEZ DO) Comments There is interval change in the CT angiogram of the chest based on local radiology Dr. Argueta: Patchy multifocal bilateral groundglass lung attenuation. Differential diagnostic considerations include multifocal pneumonia including atypical infectious etiology such as COVID-19, or an acute pneumonitis. A chronic process including relating to small airway disease or chronic vascular etiology is in the differential diagnosis. Findings are new since February 2012. No identified pulmonary embolus. Prominent mediastinal lymph nodes which may be reactive to the above process and are also an interval change. Indeterminate renal lesions bilaterally. The largest is on the right and has increased in size since February 2012. A dedicated renal mass protocol is recommended for further evaluation. (SAMUEL SADLER) Departure Communication (Admissions) [id number]--CALLED DR. CONLEY, MESSAGE LEFT ON CELL 3582--DR. CONLEY CALLED BACK, STATES THAT DR. SOOD IS ON UNTIL [address] BUCKLEY PT'S 0540--SPOKE WITH DR. SOOD, ACCEPTS PT FOR ADMIT. SHE WILL DO ADMIT ORDERS. (RAMESH RODRIGUEZ DO) Impression Primary Impression: Acute respiratory failure with hypoxia Additional Impressions: Sepsis BRONCHITIS, POSSIBLE EARLY PNEUMONIA HX OF CAD WITH CABG History of atrial fibrillation Disposition: ADMITTED INPATIENT Condition: Improved Admissions Decision to Admit Reason: Admit from ER (General) Decision to Admit/Date: Jan 27, 2022 Time/Decision to Admit Time: 05:40 (RAMESH RODRIGUEZ DO) Departure-Patient Inst. Referrals: JOSE MANUEL BUCKLEY MD (PCP/Family) Primary Care Physician RAMESH RODRIGUEZ DO Jan 27, 2022 06:13 SAMUEL SADLER Jan 27, 2022 07:24
--- NOTE | 2022-01-27 06:49 | Diagnostic Imaging Report ---
EXAMINATION: Chest radiograph, portable AP view. DATE: 01/27/2022 5:26 AM INDICATION: 76-year-old male, shortness of breath, cough. COMPARISON: March 05, 2019. FINDINGS: There are median sternotomy wires. Heart size and mediastinal contours are unchanged. There is no identified pneumothorax. There is no large pleural effusion. There are bilateral interstitial and/or alveolar opacities which appear mildly increased since the comparison study. IMPRESSION: 1. Bilateral interstitial and/or alveolar opacities which appear mildly increased since the comparison exam. Differential diagnostic considerations include multifocal pneumonia including atypical infectious etiologies, pneumonitis, and edema. Dictated by: Dictated on workstation # [id number]
[2022-01-27 07:04] LABS: ABG PCO2 38 MMHG (35-45); ABG PH 7.41 (7.37-7.43); ABG PO2 127 MMHG (79-93)
[2022-01-27 07:05] LABS: ABG BASE EXCESS -0.2 MMOL/L (-2.5-2.5); ABG OXYGEN SATURATION 99 % (94-100); ABG TCO2 24.9 MMOL/L (21.0-31.0); ALLENS TEST POSITIVE; INSPIRED O2 28%; VENTILATOR NO
[2022-01-27 07:06] LABS: BASOPHILS # (AUTO) 0.1 10^3/uL (0.0-0.1); BASOPHILS % (AUTO) 0 % (0-10); EOSINOPHILS # (AUTO) 0.1 10^3/uL (0.0-0.3); EOSINOPHILS % (AUTO) 1 % (0-10); HEMATOCRIT 43 % (40-54); HEMOGLOBIN 13.4 g/dL (13.3-17.7); LYMPHOCYTES # (AUTO) 0.4 X 10^3 (1.0-4.0); LYMPHOCYTES % (AUTO) 3 % (12-44); MEAN CORPUSCULAR HEMOGLOBIN 27 pg (25-34); MEAN CORPUSCULAR HGB CONC 32 g/dL (32-36); MEAN CORPUSCULAR VOLUME 87 fL (80-99); MEAN PLATELET VOLUME 10.3 fL (9.0-12.2); MONOCYTES # (AUTO) 1.2 X 10^3 (0.0-1.0); MONOCYTES % (AUTO) 8 % (0-12); NEUTROPHILS # (AUTO) 12.9 X 10^3 (1.8-7.8); NEUTROPHILS % (AUTO) 88 % (42-75); PLATELET COUNT 190 10^3/uL (130-400); WHITE BLOOD COUNT 14.6 10^3/uL (4.3-11.0)
[2022-01-27 07:07] LABS: ERYTHROCYTE SEDIMENTATION RATE 12 MM/HR (0-30); PROTHROMBIN TIME PATIENT 15.1 SEC (12.2-14.7)
[2022-01-27 07:08] LABS: CARBON DIOXIDE 23 MMOL/L (21-32); CHLORIDE 101 MMOL/L (98-107); FIBRIN DEGRADATION PRODUCTS 0.42 UG/ML (0.00-0.49); INR 1.1 (0.8-1.4); POTASSIUM 3.9 MMOL/L (3.6-5.0); SODIUM 138 MMOL/L (135-145)
[2022-01-27 07:09] LABS: ALANINE AMINOTRANSFERASE 13 U/L (0-55); ALBUMIN 4.3 GM/DL (3.2-4.5); ALKALINE PHOSPHATASE 83 U/L (40-136); BILIRUBIN,TOTAL 0.8 MG/DL (0.1-1.0); BUN/CREATININE RATIO 12; CALCIUM 9.8 MG/DL (8.5-10.1); CREATININE SERUM 1.05 MG/DL (0.60-1.30); GFR ESTIMATED 73; GLUCOSE 156 MG/DL (70-105); TOTAL PROTEIN 7.5 GM/DL (6.4-8.2)
--- NOTE | 2022-01-27 07:17 | Diagnostic Imaging Report ---
PROCEDURE: CT angiography of the chest with contrast. TECHNIQUE: Multiple contiguous axial images were obtained through the chest after uneventful bolus administration of intravenous contrast. 3D reconstructed CTA MIP acquisitions were also performed. Auto Exposure Controls were utilized during the CT exam to meet ALARA standards for radiation dose reduction. DATE: January 27, 2022. COMPARISON: Chest radiograph September 01, 2021. CT chest, abdomen and pelvis February 28, 2012. INDICATION: 76-year-old male, shortness of breath. Cough. FINDINGS: There is respiratory motion artifact. There are multifocal patchy areas of airspace consolidation in the lungs bilaterally with predominantly groundglass type attenuation. There is a 1.5 cm right lower lobe pulmonary nodule on axial image 111. There are dependent linear opacities in the right lower lobe most likely reflecting atelectasis. There is a calcified left lower lobe granuloma. There is mild atelectasis in the dependent aspect of the left lower lobe. There is no identified pneumothorax. There is no pleural effusion. The more central airways are patent. There is no identified pulmonary embolus. The main pulmonary arteries normal in caliber. There are coronary artery calcifications and additional areas of atherosclerotic disease. There is a right hilar lymph node on axial image 67 which measures 1.7 cm in short axis. There is a right peritracheal lymph node on axial image 45 measuring 1.3 cm in short axis. There is an AP window lymph node on axial image 56 measuring 10 mm in short axis. There is no identified abnormally enlarged axillary lymph node. There is a low-attenuation lesion in the right lobe of the liver on axial image 114 which measures 10 mm in size. Internal attenuation measures -22 Hounsfield units. This is consistent with benign etiology and likely a benign cyst. There is an additional low-attenuation lesion in the left lobe of liver on axial image 130 consistent with a benign cyst with internal attenuation of 10 Hounsfield units measure 1.5 cm in size. There is an additional 5 mm low-attenuation lesion in the left lobe of liver on axial image 129 too small to characterize as well as additional subcentimeter lesions in the right and left lobes of the liver which are also too small to characterize. There is cholelithiasis without evidence of acute cholecystitis. There is a low-attenuation right renal lesion on axial image 172 consistent with a benign cyst with internal attenuation value of 4 Hounsfield units measuring 3.7 cm in size. There is an additional low-attenuation right renal lesion consistent with benign cyst on axial image 71 as well as an additional benign right renal cyst on axial image 186. There is an indeterminant right renal lesion measuring 4.4 x 4.4 cm in size on axial image 177. There are several low-attenuation left renal lesions which are consistent with benign cysts. There is a left renal lesion on axial image 171 which is indeterminate measuring 1.5 cm in size and also on axial image 189 measuring 1.7 cm in size. 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 There are multilevel degenerative changes of the spine. There are median sternotomy wires. There is no identified acute bony abnormality. IMPRESSION: CT CHEST. 1. Patchy multifocal bilateral groundglass lung attenuation. Differential diagnostic considerations include multifocal pneumonia including atypical infectious etiologies such as COVID 19, or an acute pneumonitis. A chronic process including relating to small airways disease or chronic vascular etiology is a differential diagnostic consideration. Findings are new since February 2012. 2. No identified pulmonary embolus. 3. Prominent mediastinal lymph nodes which may be reactive to the above process and are also an interval change. 4. Indeterminate renal lesions bilaterally. The largest is on the right and measures increase in size since February 2012. Dedicated renal mass protocol is recommended for further evaluation. Report was faxed and called to [facility] Elaine NAM nurse by lauren at 7:15am. ARLIN Schmitz, was also notified. Dictated by: Dictated on workstation # [id number]
--- NOTE | 2022-01-27 07:26 | History & Physicial ---
History of Present Illness History of Present Illness Reason for visit/HPI Pt is a 76 y/o male who is a patient in my clinic. He presented to the emergency department this morning with complaint of shortness of breath, weakness and malaise. He reports 3-4 days of not feeling well due to intermittent shortness of breath. He reports that when seated the shortness of breath is not bad, but when moving it becomes quite noticeable. He states that this is similar to how he felt the last time he was sick with pneumonia. He reports a fractured ankle on the left, was in a walking boot for several months and has been out of the boot for 3 months or so. He denies chest pain, abdominal pain, nausea. He was tested in the ER and was negative for covid and flu. Imaging revealed pneumonia. Pt was admitted with acute respiratory distress secondary to pneumonia. Date of Admission Jan 27, 2022 at 07:01 Date Seen by a Provider: Jan 27, 2022 Time Seen by a Provider: 08:20 Attending Physician Jose Manuel Lubin MD Admitting Physician Jose Manuel Lubin MD Consult Allergies and Home Medications Allergies Coded Allergies: adhesive (Verified Allergy, Intermediate, RASH, 01/09/19) Patient Home Medication List Home Medication List Reviewed: Yes Albuterol Sulfate (Proair Hfa) 1 Puff Puff, 2 PUFF IH Q4H PRN for SHORTNESS OF BREATH, (Reported) Entered as Reported by: EBENEZER CARCAMO on 01/27/22 9933 Last Action: Reviewed Amiodarone HCl (Amiodarone HCl) 200 Mg Tablet, 100 MG PO DAILY, (Reported) Entered as Reported by: GABBY COUGHLIN on 01/09/191157 Last Action: Reviewed Apixaban (Eliquis) 5 Mg Tablet, 5 MG PO BID, (Reported) Entered as Reported by: GABBY COUGHLIN on 01/09/191157 Last Action: Reviewed Aspirin (Aspirin EC) 81 Mg Tablet.dr, 81 MG PO DAILY, (Reported) Entered as Reported by: GABBY COUGHLIN on 01/09/191157 Last Action: Reviewed Atorvastatin Calcium (Atorvastatin Calcium) 40 Mg Tablet, 40 MG PO HS, (Reported) Entered as Reported by: GABBY COUGHLIN on 01/09/191157 Last Action: Reviewed Doxazosin Mesylate (Doxazosin Mesylate) 2 Mg Tablet, 2 MG PO BID, (Reported) Entered as Reported by: EBENEZER CARCAMO on 01/27/221512 Last Action: Reviewed Furosemide (Furosemide) 40 Mg Tablet, 40 MG PO DAILY PRN for FLUID RETENTION, (Reported) Entered as Reported by: GABBY COUGHLIN on 01/09/191157 Last Action: Reviewed Metoprolol Tartrate (Metoprolol Tartrate) 100 Mg Tablet, 100 MG PO BID, (Reported) Entered as Reported by: EBENEZER CARCAMO on 01/27/221512 Last Action: Reviewed Pantoprazole Sodium (Pantoprazole Sodium) 40 Mg Tablet.dr, 40 MG PO DAILY PRN for HEARTBURN, (Reported) Entered as Reported by: FLACO HENDERSON on 06/13/1855 Last Action: Reviewed Potassium Chloride (Potassium Chloride) 10 Meq Tab.er.prt, 10 MEQ PO DAILY PRN for WHEN TAKING DOSE OF FUROSEMIDE, (Reported) Entered as Reported by: EBENEZER CARCAMO on 01/27/221512 Last Action: Reviewed Discontinued Medications Cefdinir (Cefdinir) 300 Mg Capsule, 300 MG PO BID, (Reported) Discontinued Reason: No Longer Taking Entered as Reported by: GABBY COUGHLIN on 01/09/191157 Last Action: Discontinued Cetirizine HCl (Cetirizine HCl) 10 Mg Tablet, 10 MG PO DAILY, (Reported) Discontinued Reason: No Longer Taking Entered as Reported by: FLACO HENDERSON on 06/13/18 0963 Last Action: Discontinued Guaifenesin (Mucinex) 600 Mg Tab.er.12h, 600 MG PO DAILY, (Reported) Discontinued Reason: No Longer Taking Entered as Reported by: GABBY COUGHLIN on 01/09/191157 Last Action: Discontinued Hydrocodone Bit/Acetaminophen (Lortab 5 Mg Tablet) 1 Each Tablet, 1 TAB PO Q4H PRN for PAIN-MODERATE, (Reported) Discontinued Reason: No Longer Taking Entered as Reported by: GABBY COUGHLIN on 01/09/19 1200 Last Action: Discontinued Krill/Om-3/Dha/Epa/Phospho/Ast (Megared [place]-3 Krill Oil Sfgl) 1 Each Capsule, 1 CAP PO DAILY, (Reported) Discontinued Reason: No Longer Taking Entered as Reported by: FLACO HENDERSON on 06/13/18 0952 Last Action: Discontinued Metoprolol Tartrate (Metoprolol Tartrate) 50 Mg Tablet, 50 MG PO BID, (Reported) Discontinued Reason: No Longer Taking Entered as Reported by: GABBY COUGHLIN on 01/09/191157 Last Action: Discontinued Potassium Chloride (Potassium Chloride) 20 Meq Tab.er.prt, 20 MEQ PO DAILY, (Reported) Discontinued Reason: Duplicate Order Entered as Reported by: GABBY COUGHLIN on 01/09/191157 Last Action: Discontinued Past Kmyzqrn-Movudn-Cmwzbn Hx Patient Social History Marrital Status: Living Status[place] Employed/Student: retired Smoking Status: Never a Smoker Former Smoker, Quit: Mar 17, 2005 2nd Hand Smoke Exposure: No Recent Hopitalizations: No Have you traveled recently?: No Alcohol Use?: No Immunizations Up To Date Tetanus Booster (TDap): Less than 5yrs Date of Pneumonia Vaccine: Mar 15, 2012 Date of Influenza Vaccine: Apr 27, 2018 Seasonal Allergies Seasonal Allergies: No Surgeries Yes (SKIN CANCER 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 BLANCHARD) Cardiac, CABG (12/20/18), Vasectomy Respiratory No Pneumonia Cardiovascular Yes (2 VESSEL CABG) Atrial Fibrillation, Coronary Artery Disease, Hypertension Neurological No Reproductive System Hx Reproductive Disorders: No Sexually Transmitted Disease: No HIV/AIDS: No Genitourinary No Gastrointestinal Yes Gastroesophageal Reflux Musculoskeletal Yes (RIGHT ANKLE FX 08/2021) Arthritis, Fractures Endocrine History of Endocrine Disorders: No HEENT History of HEENT Disorders: Yes Loss of Vision: Bilateral Cancer Yes Skin Did You Recieve Any Treatments: Yes Type of Treatment: Surgical Intervention Cancer Comment: 05/2018 Psychosocial History of Psychiatric Problem: No Integumentary History of Skin or Integumenta: No Blood Transfusions History of Blood Disorders: No Adverse Reaction to a Blood Tr: No (N/A) Reviewed Nursing Assessment Reviewed/Agree w Nursing PMH: Yes Family Medical History Significant Family History: Cancer (leukemia), Hypertension Other Significan Family Hx: PAST SURGICAL HISTORY: -2 VESSEL CABG 11/2018 Family Hx: FH: leukemia 19 FATHER 19 MOTHER Review of Systems Constitutional: No chills, No diaphoresis, No dizziness, No fever; malaise, we akness EENTM: hearing loss; No hoarseness, No nose congestion Respiratory: cough, dyspnea on exertion, phlegm, short of breath Cardiovascular: No chest pain; edema (trace swelling at previously fractured ankle), Hx of Intervention; No syncope Gastrointestinal: no symptoms reported Genitourinary: no symptoms reported Musculoskeletal: joint pain (left ankle intermittently aches) Skin: no symptoms reported Psychiatric/Neurological: No Symptoms Reported All Other Systems Reviewed Negative Unless Noted: Yes Physical Exam Vital Signs Vital Signs - First Documented 01/27/22 02:35 Temp 38.3 Pulse 82 Resp 20 B/P (MAP) 204/94 (130) Pulse Ox 100 O2 Delivery OxyMask O2 Flow Rate 10.00 Capillary Refill : Less Than 3 Seconds Height, Weight, BMI Height: 6'1.00" Weight: 208lbs. 3.0oz. [id number]; 140.00 BMI Method:Stated General Appearance: WD/WN, Mild Distress (mild shortness of breath with talking and activity) HEENT: PERRL/EOMI, Pharynx Normal Neck: Full Range of Motion, Non Tender, Supple Respiratory: Chest Non Tender, No Accessory Muscle Use, No Respiratory Distress, Decreased Breath Sounds (in bases) Cardiovascular: Regular Rate, Rhythm, Normal Peripheral Pulses Gastrointestinal: Normal Bowel Sounds, No Organomegaly, No Pulsatile Mass, Non Tender, Soft Rectal: Deferred Back: Normal Inspection Extremity: Normal Capillary Refill, Normal Inspection, Non Tender, No Calf Tenderness, Pedal Edema (trace at left ankle) Neurologic/Psychiatric: Alert, Oriented x3, No Motor/Sensory Deficits, Normal Mood/Affect Skin: Normal Color, Warm/Dry Lymphatic: No Adenopathy Assessment/Plan Assessment and Plan Acute Respiratory failure due to Pneumonia Sepsis Hyperrtensive Urgency Chronic Coronary Artery disease with hx of CABG atrial Fibrillation Esophageal Reflux Chronic Anticoagulation use Hyperlipidemia Acute Respiratory failure with mild Sepsis and Pneumonia - pt improved after fluids, steroids, breathing treatments. - continue with IV antibiotics, and will monitor symptoms. - repeat CXR tomorrow Hyperrtensive Urgency - resumed home medication regimen ,monitor pressures. Chronic Coronary Artery disease with hx of CABG - resume home regimen, troponin negative on admission. atrial Fibrillation - chronic - on anticoagulation, eliquis, resumed on admission Esophageal Reflux - PPI therapy chronically - resumed. Hyperlipidemia - statin therapy resumed GI prophylaxis with ppi DVT prophylaxis with eliquis Admission Diagnosis Acute Respiratory failure due to Pneumonia Sepsis Hyperrtensive Urgency Chronic Coronary Artery disease with hx of CABG atrial Fibrillation Esophageal Reflux Chronic Anticoagulation use Hyperlipidemia Admission Status: Inpatient Order (span 2 midnights) Reason for Inpatient Admission: anticipate at least 2 midnights in hospital for treatment of pneumonia/sepsis JOSE MANUEL LUBIN MD Jan 27, 2022 07:26
[2022-01-27] MEDS ORDERED: diphenhydrAMINE 50 MG/ML INJ (BENADRYL) IVP PRN (07:45)
[2022-01-27] MEDS ORDERED: morphine INJ 4 MG/ML 1 ML (VIAL/SYRINGE) IV PRN (07:45)
[2022-01-27] MEDS ORDERED: NALOXONE 0.4 MG/ML 1 ML (NARCAN) VIAL IV PRN (07:45)
[2022-01-27] MEDS ORDERED: CALCIUM CARBONATE 500 MG (TUMS) TAB.CHEW PO PRN (07:45)
[2022-01-27] MEDS ORDERED: diphenhydrAMINE 25 MG TAB (BENADRYL) PO PRN (07:45)
[2022-01-27] MEDS ORDERED: MILK OF MAGNESIA 400 MG/5 ML 30 ML UDC PO PRN (07:45)
[2022-01-27] MEDS ORDERED: polyethylene glycoL POWDER 17 GM (MIRALAX) PACK PO PRN (07:45)
[2022-01-27] MEDS ORDERED: BISACODYL 10 MG SUPP (DULCOLAX) PR PRN (07:45)
[2022-01-27] MEDS ORDERED: LACTULOSE SYRUP 10GM/15ML (ENULOSE) 30ML UDC PO PRN (07:45)
[2022-01-27] MEDS ORDERED: ACETAMINOPHEN 325 MG TABLET PO PRN (07:45)
[2022-01-27] MEDS ORDERED: ANTACID SUSP 30 ML UDC (MYLANTA) PO PRN (07:45)
[2022-01-27 08:00] VITALS: BP 146/104
[2022-01-27] MEDS ORDERED: ONDANSETRON 4 MG (ZOFRAN) ORAL DISSOLVE TAB PO PRN (08:00)
[2022-01-27] MEDS ORDERED: ONDANSETRON 4 MG/2 ML (SDV) Z0FRAN IV PRN (08:00)
[2022-01-27] MEDS ORDERED: FUROSEMIDE 40 MG/4 ML INJ (LASIX) IVP ONE (09:00)
[2022-01-27] MEDS ORDERED: doxAzosin 4 MG (CARDURA) TAB PO SCH (09:00)
[2022-01-27] MEDS: SENNOSIDES 8.6 MG (SENOKOT) TAB PO SCH ×2 (09:29→20:22)
[2022-01-27] MEDS: LACTOBACILLUS ACIDOPHILUS (PROBIOTIC) CAPSULE PO SCH ×3 (09:29→18:31)
[2022-01-27] MEDS: DOCUSATE SODIUM 100 MG (COLACE) CAP PO SCH ×2 (09:29→20:22)
[2022-01-27] MEDS: meTOprolol TARTRATE 50 MG (LOPRESSOR) TAB PO SCH ×2 (09:29→20:22)
[2022-01-27] MEDS: PANTOPRAZOLE 40 MG (PROTONIX) TAB PO SCH (09:29)
[2022-01-27] MEDS: AMIODARONE 200 MG (CORDARONE) TAB PO SCH (09:30)
[2022-01-27] MEDS: APIXABAN 5 MG (ELIQUIS) TABLET PO SCH ×2 (09:30→20:22)
[2022-01-27] MEDS: CEFEPIME INJECTION 1,000 MG in NS (IVPB) 50 ML IV SCH ×2 (09:31→20:22)
[2022-01-27] MEDS: AZITHROMYCIN INJECTION 250 MG in NS (IVPB) 250 ML IV SCH (09:33)
[2022-01-27] MEDS: NS IV 1000 ML 1,000 ML IV SCH ×2 (09:48→22:03)
[2022-01-27] MEDS: RT-ALBUTEROL/IPRATROPIUM 3 ML (DUONEB) VIAL INH SCH ×4 (11:21→22:09)
[2022-01-27 12:00] VITALS: BP 185/88
[2022-01-27] MEDS: methylPREDNISolone 40 MG/ML (Solu-MEDROL) VIAL IV SCH ×2 (13:37→18:31)
[2022-01-27] MEDS ORDERED: POTA10TA37 PO (15:13)
[2022-01-27] MEDS ORDERED: DOXA2TAB2 PO (15:13)
[2022-01-27] MEDS ORDERED: METO100T12 PO (15:13)
[2022-01-27] MEDS ORDERED: RT-ALBUINH IH (15:13)
[2022-01-27 16:00] VITALS: BP 169/81
[2022-01-27 20:00] VITALS: BP 159/87
[2022-01-27] MEDS: doxAzosin 2 MG (CARDURA) TAB PO SCH (20:22)
[2022-01-28] VITALS: BP 144/68
[2022-01-28] MEDS: methylPREDNISolone 40 MG/ML (Solu-MEDROL) VIAL IV SCH ×3 (00:11→12:48)
[2022-01-28] MEDS: RT-ALBUTEROL/IPRATROPIUM 3 ML (DUONEB) VIAL INH SCH ×3 (02:13→10:19)
[2022-01-28 04:00] VITALS: BP 122/64
[2022-01-28] MEDS: NS IV 1000 ML 1,000 ML IV SCH (05:12)
[2022-01-28 05:22] LABS: BASOPHILS % (AUTO) 0 % (0-10); EOSINOPHILS % (AUTO) 0 % (0-10); HEMATOCRIT 35 % (40-54); LYMPHOCYTES # (AUTO) 0.4 10^3/uL (1.0-4.0); LYMPHOCYTES % (AUTO) 3 % (12-44); MEAN CORPUSCULAR HEMOGLOBIN 27 pg (25-34); MEAN CORPUSCULAR HGB CONC 31 g/dL (32-36); MEAN CORPUSCULAR VOLUME 88 fL (80-99); MEAN PLATELET VOLUME 10.5 fL (9.0-12.2); MONOCYTES # (AUTO) 0.7 10^3/uL (0.0-1.0); MONOCYTES % (AUTO) 5 % (0-12); NEUTROPHILS # (AUTO) 13.4 10^3/uL (1.8-7.8); NEUTROPHILS % (AUTO) 92 % (42-75); PLATELET COUNT 157 10^3/uL (130-400); WHITE BLOOD COUNT 14.6 10^3/uL (4.3-11.0)
[2022-01-28 05:34] LABS: ALBUMIN 3.6 GM/DL (3.2-4.5)
[2022-01-28 05:35] LABS: POTASSIUM 4.1 MMOL/L (3.6-5.0)
[2022-01-28 05:36] LABS: CALCIUM 8.9 MG/DL (8.5-10.1)
[2022-01-28 05:37] LABS: TOTAL PROTEIN 6.2 GM/DL (6.4-8.2)
[2022-01-28 05:41] LABS: CREATININE SERUM 1.19 MG/DL (0.60-1.30)
[2022-01-28 06:09] LABS: LYMPHOCYTES % (MANUAL) 5 %; MONOCYTES % (MANUAL) 5 %; NEUTROPHILS % (MANUAL) 90 %; RBC MORPH NORMAL
[2022-01-28] MEDS ORDERED: CEFEPIME INJECTION 1,000 MG in NS (IVPB) 50 ML IV SCH (07:00)
[2022-01-28] MEDS: LACTOBACILLUS ACIDOPHILUS (PROBIOTIC) CAPSULE PO SCH (07:48)
[2022-01-28 08:00] VITALS: BP 149/70
[2022-01-28] MEDS: AMIODARONE 200 MG (CORDARONE) TAB PO SCH (08:31)
[2022-01-28] MEDS: doxAzosin 2 MG (CARDURA) TAB PO SCH (08:31)
[2022-01-28] MEDS: DOCUSATE SODIUM 100 MG (COLACE) CAP PO SCH (08:31)
[2022-01-28] MEDS: AZITHROMYCIN INJECTION 250 MG in NS (IVPB) 250 ML IV SCH (08:31)
[2022-01-28] MEDS: PANTOPRAZOLE 40 MG (PROTONIX) TAB PO SCH (08:31)
[2022-01-28] MEDS: meTOprolol TARTRATE 50 MG (LOPRESSOR) TAB PO SCH (08:31)
[2022-01-28] MEDS: SENNOSIDES 8.6 MG (SENOKOT) TAB PO SCH (08:31)
[2022-01-28] MEDS: APIXABAN 5 MG (ELIQUIS) TABLET PO SCH (08:31)
--- NOTE | 2022-01-28 08:52 | Diagnostic Imaging Report ---
EXAMINATION: PA and lateral chest at 7:37 AM. INDICATION: Respiratory distress. FINDINGS: The cardiomegaly and the alveolar/interstitial infiltrates involving both lungs seen on the prior exam of 01/27/2022 are again evident and no different. The mediastinum is not widened. The osseous structures are intact. The sternotomy wires and surgical clips seen previously are again evident and no different. IMPRESSION: Stable chest. There has been no adverse change since the prior exam. Dictated by: Dictated on workstation # [id number]
--- NOTE | 2022-01-28 09:41 | Discharge Summary ---
Diagnosis/Chief Complaint Date of Admission Jan 27, 2022 at 07:01 Date of Discharge 01/28/22 Discharge Date: Jan 28, 2022 Discharge Time: 11:30 Reason Hospital Visit Pt is a 76 y/o male who is a patient in my clinic. He presented to the emergency department this morning with complaint of shortness of breath, weakness and malaise. He reports 3-4 days of not feeling well due to intermittent shortness of breath. He reports that when seated the shortness of breath is not bad, but when moving it becomes quite noticeable. He states that this is similar to how he felt the last time he was sick with pneumonia. He reports a fractured ankle on the left, was in a walking boot for several months and has been out of the boot for 3 months or so. He denies chest pain, abdominal pain, nausea. He was tested in the ER and was negative for covid and flu. Imaging revealed pneumonia. Pt was admitted with acute respiratory distress secondary to pneumonia. Discharge Summary Discharge Physical Examination Allergies: Coded Allergies: adhesive (Verified Allergy, Intermediate, RASH, 01/09/19) Vitals & I&Os Vital Signs Date Time Temp Pulse Resp B/P (MAP) Pulse Ox O2 Delivery O2 Flow Rate FiO2 01/28/22 09:32 89 Nasal Cannula 2.00 01/28/22 08:00 36.9 73 17 149/70 (96) Hospital Course Pending Labs Laboratory Tests 01/28/22 04:45: White Blood Count 14.6, Red Blood Count 4.02, Hemoglobin 11.0, Hematocrit 35, Mean Corpuscular Volume 88, Mean Corpuscular Hemoglobin 27, Mean Corpuscular Hemoglobin Concent 31, Red Cell Distribution Width 13.6, Platelet Count 157, Mean Platelet Volume 10.5, Immature Granulocyte % (Auto) 1, Neutrophils (%) (Auto) 92, Lymphocytes (%) (Auto) 3, Monocytes (%) (Auto) 5, Eosinophils (%) (Auto) 0, Basophils (%) (Auto) 0, Neutrophils # (Auto) 13.4, Lymphocytes # (Auto) 0.4, Monocytes # (Auto) 0.7, Eosinophils # (Auto) 0.0, Basophils # (Auto) 0.0, Immature Granulocyte # (Auto) 0.1, Neutrophils % (Manual) 90, Lymphocytes % (Manual) 5, Monocytes % (Manual) 5, Blood Morphology Comment NORMAL, Sodium Level 134, Potassium Level 4.1, Chloride Level 103, Carbon Dioxide Level 19, Anion Gap 12, Blood Urea Nitrogen 26, Creatinine 1.19, Estimat Glomerular Filtration Rate 63, BUN/Creatinine Ratio 22, Glucose Level 204, Calcium Level 8.9, Corrected Calcium 9.2, Total Bilirubin 1.0, Aspartate Amino Transf (AST/SGOT) 8, Alanine Aminotransferase (ALT/SGPT) 10, Alkaline Phosphatase 49, Total Protein 6.2, Albumin 3.6 Discharge Instructions to patient/family Please see electronic discharge instructions given to patient. Discharge Medications Reviewed and agree with Discharge Medication list on patient's Discharge Instruction sheet JOSE MANUEL BUCKLEY MD Jan 28, 2022 09:41
[2022-01-28] MEDS ORDERED: IPRA3AMP31 INH (09:47)
[2022-01-28] MEDS ORDERED: CEFD300C3 PO (09:47)
[2022-01-28] MEDS ORDERED: AZIT250T12 PO (09:47)
[2022-01-28] MEDS ORDERED: DEXA2TAB PO (09:47)
[2022-01-28] MEDS ORDERED: NEBU-140 MC (09:47)
--- NOTE | 2022-01-28 09:48 | Discharge Inst-Simple/Standard ---
Discharge Inst-Standard Reconcile Patient Problems Problems Reviewed?: Yes Discharge Medications New, Converted or Re-Newed RX: Transmitted to Pharmacy Patient Instructions/Follow Up Plan of Care/Instructions/FU: 1 wk [facility] [place] will need outpatient CT scan of kidneys with renal mass protocol Activity as Tolerated: Yes Discharge Diet: Low Fat/Low Cholesterol Medication List: Active Scripts Active Cefdinir 300 Mg Capsule 300 Mg PO BID Azithromycin 250 Mg Tablet 250 Mg PO UD TAKE 2 TABLETS ON DAY ONE THEN TAKE 1 TABLET DAILY FOR FOUR MORE DAYS Aeroneb Go Nebuliser (Nebulizer) 1 Each Each Each UD use with nebulizer medications Dexamethasone 2 Mg Tablet 2 Mg PO DAILY Iprat-Albut 0.5-3(2.5) mg/3 ml (Ipratropium/Albuterol Sulfate) 0.5 Mg-3 Mg (2.5 Mg Base)/3 Ml Ampul.neb 3 Ml INH RTQ4HR PRN use four times daily x 5 days then 3 times daily x 5 days then as needed for shortness of breath, may use up to q 4 hours if needed Reported Potassium Chloride 10 Meq Tab.er.prt 10 Meq PO DAILY PRN Proair Hfa (Albuterol Sulfate) 1 Puff Puff 2 Puff IH Q4H PRN Metoprolol Tartrate 100 Mg Tablet 100 Mg PO BID Doxazosin Mesylate 2 Mg Tablet 2 Mg PO BID Furosemide 40 Mg Tablet 40 Mg PO DAILY PRN Aspirin EC (Aspirin) 81 Mg Tablet. 81 Mg PO DAILY Eliquis (Apixaban) 5 Mg Tablet 5 Mg PO BID LAST FILLED 09-01-2021 #180/90 DAY SUPPLY Atorvastatin Calcium 40 Mg Tablet 40 Mg PO HS Amiodarone HCl 200 Mg Tablet 100 Mg PO DAILY TAKES OF A (200MG) TABS Pantoprazole Sodium 40 Mg Tablet. 40 Mg PO DAILY PRN Lab results: Laboratory Tests Test 01/28/22 04:45 Range/Units White Blood Count 14.6 H 4.3-11.0 10^3/uL Red Blood Count 4.02 L 4.30-5.52 10^6/uL Hemoglobin 11.0 L 13.3-17.7 g/dL Hematocrit 35 L 40-54 % Mean Corpuscular Volume 88 80-99 fL Mean Corpuscular Hemoglobin 27 25-34 pg Mean Corpuscular Hemoglobin Concent 31 L 32-36 g/dL Red Cell Distribution Width 13.6 10.0-14.5 % Platelet Count 157 130-400 10^3/uL Mean Platelet Volume 10.5 9.0-12.2 fL Immature Granulocyte % (Auto) 1 % Neutrophils (%) (Auto) 92 H 42-75 % Lymphocytes (%) (Auto) 3 L 12-44 % Monocytes (%) (Auto) 5 0-12 % Eosinophils (%) (Auto) 0 0-10 % Basophils (%) (Auto) 0 0-10 % Neutrophils # (Auto) 13.4 H 1.8-7.8 10^3/uL Lymphocytes # (Auto) 0.4 L 1.0-4.0 10^3/uL Monocytes # (Auto) 0.7 0.0-1.0 10^3/uL Eosinophils # (Auto) 0.0 0.0-0.3 10^3/uL Basophils # (Auto) 0.0 0.0-0.1 10^3/uL Immature Granulocyte # (Auto) 0.1 0.0-0.1 10^3/uL Neutrophils % (Manual) 90 % Lymphocytes % (Manual) 5 % Monocytes % (Manual) 5 % Blood Morphology Comment NORMAL Sodium Level 134 L 135-145 MMOL/L Potassium Level 4.1 3.6-5.0 MMOL/L Chloride Level 103 98-107 MMOL/L Carbon Dioxide Level 19 L 21-32 MMOL/L Anion Gap 12 5-14 MMOL/L Blood Urea Nitrogen 26 H 7-18 MG/DL Creatinine 1.19 0.60-1.30 MG/DL Estimat Glomerular Filtration Rate 63 BUN/Creatinine Ratio 22 Glucose Level 204 H 70-105 MG/DL Calcium Level 8.9 8.5-10.1 MG/DL Corrected Calcium 9.2 8.5-10.1 MG/DL Total Bilirubin 1.0 0.1-1.0 MG/DL Aspartate Amino Transf (AST/SGOT) 8 5-34 U/L Alanine Aminotransferase (ALT/SGPT) 10 0-55 U/L Alkaline Phosphatase 49 40-136 U/L Total Protein 6.2 L 6.4-8.2 GM/DL Albumin 3.6 3.2-4.5 GM/DL My orders: Orders - JOSE MANUEL BUCKLEY MD Blood Culture (01/27/22 02:46) Blood Culture (01/27/22 03:35) Doxazosin Tablet (Cardura Tablet) (01/27/22 21:00) Ambulate W/O 02-Home O2 Qual (01/28/22 08:14) Attending Discharge Inpt/Inobs (01/28/22 09:42) JOSE MANUEL BUCKLEY MD Jan 28, 2022 09:48
[2022-01-28 12:00] VITALS: BP 159/71
[2022-01-28 13:49] VITALS: BP 159/71
== END 2022-01-28 13:00 | disposition home or self-care (01) | DRG 871 ==
LOC: EDUNIT# 02:35 → ER 02:43 → CSD 07:01
PROVIDERS: ADMIT Internal Medicine; ATTEND Family Medicine
DX: A41.9 Sepsis, unspecified organism (principal); J18.9 Pneumonia, unspecified organism; J96.01 Acute respiratory failure with hypoxia; Z20.822 Contact with and (suspected) exposure to COVID-19; Z79.82 Long term (current) use of aspirin; Z79.899 Other long term (current) drug therapy; I48.91 Unspecified atrial fibrillation; I25.10 Atherosclerotic heart disease of native coronary artery without angina pectoris; I10 Essential (primary) hypertension; K21.9 Gastro-esophageal reflux disease without esophagitis; M19.90 Unspecified osteoarthritis, unspecified site; Z85.828 Personal history of other malignant neoplasm of skin; I16.0 Hypertensive urgency; Z79.01 Long term (current) use of anticoagulants; E78.5 Hyperlipidemia, unspecified; J40 Bronchitis, not specified as acute or chronic; Z95.1 Presence of aortocoronary bypass graft
CPT/HCPCS: 36415; 71045; 71046; 71275; 80053; 82805; 83605; 83880; 84145; 84484; 85007; 85025; 85027; 85379; 85610; 85652; 85730; 87040; 87636; 93005; 94640; 94760; 94761

== ENCOUNTER → 2022-02-03 | Outpatient (CLI) | payer MEDICARE, OTHER ==
[~2022-02-03] MED LIST changes: +CATHETER FLUSH 10 ML SYR IV PRN; +DEXA2TAB PO; +DOXA2TAB2 PO; +IOHEXOL 350 MG/ML 100 ML (OMNIPAQUE 350) VIAL IV ONE; +IPRA3AMP31 INH; +METO100T12 PO; +NEBU-140 MC; +NS 100 ML (IVPB) BAG IV ONE; +POTA10TA37 PO; +RT-ALBUINH IH
--- NOTE | 2022-02-03 15:30 | Diagnostic Imaging Report ---
PROCEDURE: CT abdomen and pelvis with and without contrast. TECHNIQUE: Precontrast acquisitions were acquired through the abdomen and pelvis. Multiple contiguous axial images were obtained through the abdomen and pelvis after the administration of intravenous contrast. Auto Exposure Controls were utilized during the CT exam to meet ALARA standards for radiation dose reduction. INDICATION: Renal lesions. FINDINGS: This patient has multiple bilateral predominantly simple renal cortical cysts. Some of the cysts do show thin incomplete curvilinear rim calcifications. Others of these nodules are hyperdense but show no appreciable change in lesional density when correlating with the precontrast, dynamic post contrast, and the delayed post contrast enhanced images. These are consistent with cysts complicated by intracystic hemorrhage or proteinaceous debris. There is no enhancing renal mass to suggest a solid lesion or malignancy. There is no hydronephrosis. There are punctate 1 to 2 mm tiny stones nonobstructing bilaterally within the lower poles. There is a left adrenal circumscribed nodule with fatty composition, consistent with a benign lesion. The right adrenal is negative. There is a stone within the lumen of the contracted gallbladder without findings of acute cholecystitis. There are a few scattered benign hepatic cysts. The spleen and pancreas are negative. There is no bowel obstruction. There is no ascites. There is noninflamed colonic diverticulosis. The urinary bladder is unremarkable. There is no mesenteric or retroperitoneal lymphadenopathy. IMPRESSION: 1. There are multiple renal cysts, predominantly simple, some with mild degrees of complexity as described above; however, no solid or enhancing renal mass to suggest malignancy. 2. Nonobstructing punctate renal calculi. No hydronephrosis. Nonfocal and nonacute urinary bladder. 3. Cholelithiasis without secondary features of acute cholecystitis. 4. Benign fat-containing left adrenal nodule. Dictated by: Dictated on workstation # [id number]
== END ==
LOC: RAD 13:15
PROVIDERS: ATTEND Nurse Practitioner Family
DX: N20.0 Calculus of kidney (principal); K80.20 Calculus of gallbladder without cholecystitis without obstruction; N28.1 Cyst of kidney, acquired
CPT/HCPCS: 74178

== ENCOUNTER 2022-03-30 18:02 | Inpatient (IN) | payer MEDICARE, OTHER ==
[~2022-03-30] VITALS: Ht 185 cm; Wt 101.0 kg
[~2022-03-30 18:02] MED LIST changes: -CATHETER FLUSH 10 ML SYR IV PRN; -IOHEXOL 350 MG/ML 100 ML (OMNIPAQUE 350) VIAL IV ONE; -NS 100 ML (IVPB) BAG IV ONE; +POTA-177 PO; -POTA10TA37 PO
[2022-03-30 18:33] LABS: BASOPHILS % (AUTO) 0 % (0-10); EOSINOPHILS # (AUTO) 0.3 10^3/uL (0.0-0.3); EOSINOPHILS % (AUTO) 2 % (0-10); HEMATOCRIT 39 % (40-54); HEMOGLOBIN 12.6 g/dL (13.3-17.7); LYMPHOCYTES # (AUTO) 0.8 10^3/uL (1.0-4.0); LYMPHOCYTES % (AUTO) 6 % (12-44); MEAN CORPUSCULAR HEMOGLOBIN 27 pg (25-34); MEAN CORPUSCULAR HGB CONC 32 g/dL (32-36); MEAN CORPUSCULAR VOLUME 85 fL (80-99); MEAN PLATELET VOLUME 9.2 fL (9.0-12.2); MONOCYTES # (AUTO) 1.4 10^3/uL (0.0-1.0); MONOCYTES % (AUTO) 10 % (0-12); NEUTROPHILS # (AUTO) 11.3 10^3/uL (1.8-7.8); NEUTROPHILS % (AUTO) 82 % (42-75); PLATELET COUNT 211 10^3/uL (130-400); WHITE BLOOD COUNT 13.8 10^3/uL (4.3-11.0)
--- NOTE | 2022-03-30 18:35 | ED General ---
General Chief Complaint: Respiratory Problems Stated Complaint: SOB Nursing Triage Note: PT HAS BEEN COUGHING ALL WEEKEND, HX OF BRONCHITIS AND A FIB, COUGHING LEADS TO HIS A FIB. HX OF CABG AND 2 AMI'S Source of Information: Patient, Old Records Exam Limitations: No Limitations History of Present Illness Date Seen by Provider: Mar 30, 2022 Time Seen by Provider: 18:14 Initial Comments This 76-year-old gentleman presents to the emergency room with complaints of cough, shortness of breath, and malaise over the past several days. He states he has been struggling through the weekend (this is Labor Wednesday). He denies any associated chest pain. He is hypoxic on arrival with an oxygen sa turation of 81% on room air. He does not normally use oxygen supplementation at home. However, he had been admitted to the hospital for pneumonia and sepsis January 27 and and used oxygen briefly at home after that. His oxygen not resuscitate's quickly on nasal cannula at 2 L. He has history of paroxysmal atrial fibrillation and believes he was in atrial fibrillation earlier today. He is in sinus rhythm at this time. Nursing staff notes he seemed in respiratory distress on arrival but that corrected with nasal cannula oxygen. He is not wheezing but does have crackles in the bilateral bases, left greater than right. He notes no increase in edema recently and acknowledges chronic edema, right greater than left due to prior ankle fracture. He is afebrile. He is alert, oriented, and in good spirits. He has history of coronary artery disease and CABG. He is presently on Xarelto for stroke prophylaxis with his atrial fibrillation. His primary care provider is Dr. LUBIN, and his book retailer is Dr. Swanson. He has markedly hypertensive right now with systolic blood pressure greater than 200. He just took his evening medications prior to coming to the ER and reports taking his morning medications at the usual time. Review of his chart reveals admission for sepsis in early January secondary to pneumonia. There were no positive cultures. His last echocardiogram in 2020 demonstrated no heart failure. Allergies and Home Medications Allergies Coded Allergies: adhesive (Verified Allergy, Intermediate, RASH, 01/09/19) Patient Home Medication List Home Medication List Reviewed: Yes Albuterol Sulfate (Proair Hfa) 1 Puff Puff, 2 PUFF IH Q4H PRN for SHORTNESS OF BREATH, (Reported) Entered as Reported by: EBENEZER CARCAMO on 01/27/221512 Amiodarone HCl (Amiodarone HCl) 200 Mg Tablet, 100 MG PO DAILY, (Reported) Entered as Reported by: GABBY COUGHLIN on 01/09/191157 Apixaban (Eliquis) 5 Mg Tablet, 5 MG PO BID, (Reported) Entered as Reported by: GABBY COUGHLIN on 01/09/19 115 Aspirin (Aspirin EC) 81 Mg Tablet.dr, 81 MG PO DAILY, (Reported) Entered as Reported by: GABBY COUGHLIN on 01/09/19 115 Atorvastatin Calcium (Atorvastatin Calcium) 40 Mg Tablet, 40 MG PO HS, (Reported) Entered as Reported by: GABBY COUGHLIN on 01/09/191157 Azithromycin (Azithromycin) 250 Mg Tablet, 250 MG PO UD Prescribed by: JOSE MANUEL LUBIN on 01/28/22946 Cefdinir (Cefdinir) 300 Mg Capsule, 300 MG PO BID Prescribed by: JOSE MANUEL LUBIN on 01/28/22946 Dexamethasone (Dexamethasone) 2 Mg Tablet, 2 MG PO DAILY Prescribed by: JOSE MANUEL LUBIN on 01/28/22946 Doxazosin Mesylate (Doxazosin Mesylate) 2 Mg Tablet, 2 MG PO BID, (Reported) Entered as Reported by: EBENEZER CARCAMO on 01/27/221512 Furosemide (Furosemide) 40 Mg Tablet, 40 MG PO DAILY PRN for FLUID RETENTION, (Reported) Entered as Reported by: GABBY COUGHLIN on 01/09/191157 Ipratropium/Albuterol Sulfate (Iprat-Albut 0.5-3(2.5) mg/3 ml) 0.5 Mg-3 Mg (2.5 Mg Base)/3 Ml Ampul.neb, 3 ML INH RTQ4HR PRN for DYSPNEA Prescribed by: JOSE MANUEL LUBIN on 01/28/22946 Metoprolol Tartrate (Metoprolol Tartrate) 100 Mg Tablet, 100 MG PO BID, (Reported) Entered as Reported by: EBENEZER CARCAMO on 01/27/221512 Nebulizer (Aeroneb Go Nebuliser) 1 Each Each, EACH UD, (DME) Prescribed by: JOSE MANUEL LUBIN on 01/28/22946 Pantoprazole Sodium (Pantoprazole Sodium) 40 Mg Tablet., 40 MG PO DAILY PRN for HEARTBURN, (Reported) Entered as Reported by: FLACO HENDERSON on 06/13/18 0927 Potassium Chloride (Potassium Chloride) 10 Meq Tab.er.prt, 10 MEQ PO DAILY PRN for WHEN TAKING DOSE OF FUROSEMIDE, (Reported) Entered as Reported by: EBENEZER CARCAMO on 01/27/22 1513 Review of Systems Review of Systems Constitutional: see HPI EENTM: no symptoms reported Respiratory: see HPI Cardiovascular: see HPI Gastrointestinal: no symptoms reported Genitourinary: no symptoms reported Musculoskeletal: no symptoms reported Skin: no symptoms reported Psychiatric/Neurological: No Symptoms Reported Hematologic/Lymphatic: No Symptoms Reported Immunological/Allergic: no symptoms reported Past Xgsfldn-Idsavg-Lgnwzq Hx Patient Social History Tobacco Use?: No Smoking Status: Never a Smoker Use of E-Cig and/or Vaping dev: No Substance use?: No Alcohol Use?: No Immunizations Up To Date Tetanus Booster (TDap): Less than 5yrs Seasonal Allergies Seasonal Allergies: No Past Medical History Surgeries: Yes (SKIN CANCER 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 BLANCHARD) Cardiac, CABG, Vasectomy Respiratory: Yes Chronic Bronchitis (Recurrent episodes, several per year) Cardiac: Yes (2 VESSEL CABG) Atrial Fibrillation (Paroxysmal), Chronic Edema/Swelling (Right greater than left due to prior ankle fracture), Coronary Artery Disease, Hypertension Neurological: No Reproductive Disorders: No Sexually Transmitted Disease: No HIV/AIDS: No Genitourinary: No Gastrointestinal: Yes Gastroesophageal Reflux Musculoskeletal: Yes (RIGHT ANKLE FX 08/2021) Arthritis, Fractures Endocrine: No HEENT: Yes Loss of Vision: Bilateral Cancer: Yes Skin Did You Recieve Any Treatments: Yes What Type of Treatment Did You: Surgical Intervention Psychosocial: No Integumentary: No Blood Disorders: No Adverse Reaction/Blood Tranf: No (N/A) Family Medical History Reviewed Nursing Family Hx FH: leukemia 19 FATHER 19 MOTHER Cancer, Hypertension PAST SURGICAL HISTORY: -2 VESSEL CABG 11/2018 Physical Exam-Suspected Sepsis Physical Exam Vital Signs Vital Signs - First Documented 03/30/22 03/30/22 03/30/22 03/30/22 18:11 18:25 21:15 21:45 Temp 36.9 Pulse 94 Resp 22 B/P (MAP) 163/82 Pulse Ox 95 O2 Delivery Nasal Cannula O2 Flow Rate 2.00 FiO2 28 Capillary Refill : Height, Weight, BMI Height: 6'1.00" Weight: 208lbs. 3.0oz. 94.395266wp; 29.00 BMI Method:Stated General Appearance: No Apparent Distress, WD/WN HEENT: PERRL/EOMI, Normal ENT Inspection Neck: Normal Inspection Respiratory: No Accessory Muscle Use, No Respiratory Distress, Crackles (Bilateral bases, left greater than right); No Rhonci, No Wheezing; Other (Reasonably good air movement) Cardiovascular: Regular Rate, Rhythm, No Murmur, Other (Mild to moderate lower extremity edema) Gastrointestinal: Normal Bowel Sounds, Non Tender, Soft, Other (Nondistended obese abdomen) Extremity: Non Tender, Pedal Edema, Swelling Neurologic/Psychiatric: Alert, Oriented x3, No Motor/Sensory Deficits, Normal Mood/Affect, 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 Norm as Tested Skin: normal color, warm/dry Focused Exam Sepsis Stage: Sepsis Possible Source: Pulmonary Lactate Level 03/30/22 20:13: Lactic Acid Level 0.86 Time of Focused Exam: 20:15 Respiratory: Crackles (Bilateral bases); No Rhonci, No Wheezing; Other (Reasonably good air movement) Cardiovascular: Regular Rate, Rhythm, No Edema, No Murmur Peripheral Pulses: 2+ Radial Pulses (L) Skin: normal color, warm/dry Lactic Acid Level Within 3hrs of presentation: Admin ABX, Blood cultures prior to ABX's, Focus exam, Lactate level Progress/Results/Core Measures Suspected Sepsis SIRS Temperature: Pulse: 94 Respiratory Rate: 22 Laboratory Tests 03/30/22 18:15: White Blood Count 13.8H Blood Pressure / Mean: 03/30/22 20:13: Lactic Acid Level 0.86 Laboratory Tests 03/30/22 18:15: Creatinine 1.01, INR Comment 1.6H, Platelet Count 211, Total Bilirubin 0.8 Results/Orders Lab Results Laboratory Tests Test 03/30/22 18:00 03/30/22 18:15 03/30/22 18:25 03/30/22 20:13 Range/Units Procalcitonin 0.03 <0.10 NG/ML White Blood Count 13.8 H 4.3-11.0 10^3/uL Red Blood Count 4.61 4.30-5.52 10^6/uL Hemoglobin 12.6 L 13.3-17.7 g/dL Hematocrit 39 L 40-54 % Mean Corpuscular Volume 85 80-99 fL Mean Corpuscular Hemoglobin 27 25-34 pg Mean Corpuscular Hemoglobin Concent 32 32-36 g/dL Red Cell Distribution Width 14.1 10.0-14.5 % Platelet Count 211 130-400 10^3/uL Mean Platelet Volume 9.2 9.0-12.2 fL Immature Granulocyte % (Auto) 0 % Neutrophils (%) (Auto) 82 H 42-75 % Lymphocytes (%) (Auto) 6 L 12-44 % Monocytes (%) (Auto) 10 0-12 % Eosinophils (%) (Auto) 2 0-10 % Basophils (%) (Auto) 0 0-10 % Neutrophils # (Auto) 11.3 H 1.8-7.8 10^3/uL Lymphocytes # (Auto) 0.8 L 1.0-4.0 10^3/uL Monocytes # (Auto) 1.4 H 0.0-1.0 10^3/uL Eosinophils # (Auto) 0.3 0.0-0.3 10^3/uL Basophils # (Auto) 0.0 0.0-0.1 10^3/uL Immature Granulocyte # (Auto) 0.1 0.0-0.1 10^3/uL Neutrophils % (Manual) 82 % Lymphocytes % (Manual) 7 % Monocytes % (Manual) 8 % Eosinophils % (Manual) 3 % Basophils % (Manual) 0 % Band Neutrophils 0 % Blood Morphology Comment NORMAL Prothrombin Time 19.5 H 12.2-14.7 SEC INR Comment 1.6 H 0.8-1.4 Activated Partial Thromboplast Time 37 H 24-35 SEC Sodium Level 139 135-145 MMOL/L Potassium Level 4.0 3.6-5.0 MMOL/L Chloride Level 101 98-107 MMOL/L Carbon Dioxide Level 25 21-32 MMOL/L Anion Gap 13 5-14 MMOL/L Blood Urea Nitrogen 14 7-18 MG/DL Creatinine 1.01 0.60-1.30 MG/DL Estimat Glomerular Filtration Rate 77 BUN/Creatinine Ratio 14 Glucose Level 108 H 70-105 MG/DL Calcium Level 9.7 8.5-10.1 MG/DL Corrected Calcium 9.5 8.5-10.1 MG/DL Magnesium Level 1.7 1.6-2.4 MG/DL Total Bilirubin 0.8 0.1-1.0 MG/DL Aspartate Amino Transf (AST/SGOT) 10 5-34 U/L Alanine Aminotransferase (ALT/SGPT) 14 0-55 U/L Alkaline Phosphatase 78 40-136 U/L Myoglobin 34.5 10.0-92.0 NG/ML Troponin I < 0.028 <0.028 NG/ML C-Reactive Protein High Sensitivity 3.80 H 0.00-0.50 MG/DL B-Type Natriuretic Peptide 143.2 H <100.0 PG/ML Total Protein 7.3 6.4-8.2 GM/DL Albumin 4.3 3.2-4.5 GM/DL Influenza Type A (RT-PCR) Not Detected Not Detecte Influenza Type B (RT-PCR) Not Detected Not Detecte SARS-CoV-2 RNA (RT-PCR) Not Detected Not Detecte Lactic Acid Level 0.86 0.50-2.00 MMOL/L Test 03/30/22 20:16 Range/Units Urine Color YELLOW Urine Clarity SL CLOUDY Urine pH 7.0 5-9 Urine Specific [place] 1.015 L 1.016-1.022 Urine Protein TRACE H NEGATIVE Urine Glucose (UA) NEGATIVE NEGATIVE Urine Ketones NEGATIVE NEGATIVE Urine Nitrite NEGATIVE NEGATIVE Urine Bilirubin NEGATIVE NEGATIVE Urine Urobilinogen 0.2 < = 1.0 MG/DL Urine Leukocyte Esterase NEGATIVE NEGATIVE Urine RBC (Auto) NEGATIVE NEGATIVE Urine RBC RARE /HPF Urine WBC RARE /HPF Urine Crystals NONE /LPF Urine Bacteria NEGATIVE /HPF Urine Casts NONE /LPF Urine Mucus NEGATIVE /LPF Urine Culture Indicated NO My Orders Orders - LANI UREÑA MD Ekg Tracing (03/30/22 18:10) Covid 19 Inhouse Test (03/30/22 18:14) Influenza A And B By Pcr (03/30/22 18:14) Cbc With Automated Diff (03/30/22 18:24) Magnesium (03/30/22 18:24) Chest 1 View, Ap/Pa Only (03/30/22 18:24) Comprehensive Metabolic Panel (03/30/22 18:24) Myoglobin Serum (03/30/22 18:24) Protime With Inr (03/30/22 18:24) Partial Thromboplastin Time (03/30/22 18:24) O2 (03/30/22 18:24) Monitor-Rhythm Ecg Trace Only (03/30/22 18:24) Lipid Panel (03/31/22 06:00) Ed Iv/Invasive Line Start (03/30/22 18:24) Bnp [place] (03/30/22 18:24) Troponin I [place] (03/30/22 18:24) Hs C Reactive Protein (03/30/22 18:24) Manual Differential (03/30/22 18:15) Blood Culture (03/30/22 19:55) Sputum Culture (03/30/22 19:55) Urinalysis (03/30/22 19:55) Urine Culture (03/30/22 19:55) Vital Signs Adult Sepsis Patie Q15M (03/30/22 19:55) Remove Rings In Anticipation O (03/30/22 19:55) Lactic Acid Analyzer (03/30/22 19:55) Cefepime Injection (Maxipime Injection) (03/30/22 20:00) Hydralazine Injection (Apresoline Inject (03/30/22 20:15) Procalcitonin (Pct) (03/30/22 20:19) Medications Given in ED Current Medications Medications Dose Ordered Sig/Alana Route Start Time Stop Time Status Last Admin Dose Admin Cefepime HCl 2000 mg/Sodium Chloride 50 ml @ 100 mls/hr ONCE ONCE IV 03/30/22 20:00 03/30/22 20:29 DC 03/30/22 20:15 100 MLS/HR Vital Signs/I&O 03/30/22 03/30/22 03/30/22 03/30/22 18:25 18:30 21:15 21:36 Temp 37.0 36.6 Pulse 75 79 Resp 20 20 B/P (MAP) 163/82 179/79 (112) Pulse Ox 95 98 94 O2 Delivery Nasal Cannula Nasal Cannula Room Air Nasal Cannula O2 Flow Rate 3.00 3.00 2.00 03/30/22 03/30/22 03/30/22 03/30/22 21:45 21:50 21:56 22:14 Temp 36.8 Pulse 70 74 Resp 20 B/P (MAP) 178/69 (105) Pulse Ox 94 96 O2 Delivery Nasal Cannula Nasal Cannula O2 Flow Rate 2.00 2.00 FiO2 28 03/30/22 03/30/22 03/31/22 03/31/22 22:34 22:50 00:16 01:00 Temp 37.5 Pulse 78 69 Resp 20 B/P (MAP) 156/66 (96) Pulse Ox 92 O2 Delivery Nasal Cannula Nasal Cannula Nasal Cannula O2 Flow Rate 2.00 2.00 2.00 03/31/22 03/31/22 02:34 04:19 Temp 36.9 Pulse 80 Resp 20 B/P (MAP) 155/67 (96) Pulse Ox 91 O2 Delivery Nasal Cannula Nasal Cannula O2 Flow Rate 2.00 2.00 FiO2 91 Capillary Refill : Progress Note #1: Time: 18:37 Progress Note Patient has been interviewed and examined. He is presently stable and feeling improved on 2 L nasal cannula. He is not wheezing and does not require any nebulizer or inhaler treatments. Cardiopulmonary work-up is pending. I will wait briefly to observe if his oral blood pressure medications improve his blood pressure. If not, we will apply some Nitropaste. Disposition is pending results of work-up. Progress Note #2: Time: 20:21 Progress Note Chest x-ray demonstrated pulmonary infiltrates. Labs were not consistent with heart failure and he has no history of heart failure on review of prior cardiac studies. Antibiotic therapy is being started with cefepime. No prior cultures from the prior episode of pneumonia were available. Patient feels much improved on oxygen at 2 L by nasal cannula. I discussed CODE STATUS with the patient and he would like to remain full code. Dr. Lubin accepts admission. Patient technically meets septic criteria with a heart rate of 92 and a leukocytosis. However, he does not appear septic by exam. Large volume fluid resuscitation is not needed at this time as he is hypertensive and not tachycardic at this time. He does not appear in septic shock. Blood pressure at this time is [address] Lubin requested 1 dose of hydralazine to be given IV prior to admission. ECG Initial ECG Impression Date: Mar 30, 2022 Initial ECG Impression Time: 18:20 Initial ECG Rate: 78 Initial ECG Rhythm: Normal Sinus Comment Sinus rhythm with first-degree AV block with MN interval of 230 ms. Borderline left axis deviation. No ST elevation or depression. Diagnostic Imaging Diagonstic Imaging: Xray Plain Films/CT/US/NM/MRI: chest Comments Chest x-ray viewed by me and report reviewed. See report below: NAME: CORINA MURRY [facility] REC#: [id number] PT STATUS: REG ER : 1945 PHYSICIAN: LANI UREÑA MD ADMIT DATE: 03/30/22/ER Draft Date of Exam:03/30/22 CHEST 1 VIEW, AP/PA ONLY CLINICAL INDICATION: Patient with chest pain and cough all weekend. Patient has history of bronchitis and A-fib. EXAM: Portable chest x-ray upright view. COMPARISON: Chest x-ray dated 01/27/2022. FINDINGS: Stable cardiomegaly with mild pulmonary vascular prominence again noted. There is groundglass and patchy airspace opacities involving both lungs most pronounced in the periphery and left lung base region. There is no pleural effusion or pneumothorax. There are postop change to the chest consistent with CABG again seen. IMPRESSION: 1: There is cardiomegaly with mild pulmonary vascular congestion. 2: There are mild patchy airspace opacities involving both lungs which may represent mild pulmonary congestion or lung infiltrates. Superimposed chronic lung changes also may be present. Dictated on workstation # [id number] Dict: 03/30/221917 Trans: 03/30/221925 [facility] [id number] Interpreted by: KEISHA ALLEN MD Departure Communication (Admissions) Time/Spoke to Admitting Phy: 20:10 Dr. Lubin Impression Primary Impression: Pneumonia Qualified Codes: J18.9 - Pneumonia, unspecified organism Additional Impressions: Acute respiratory failure with hypoxia Sepsis Qualified Codes: A41.9 - Sepsis, unspecified organism Disposition: ADMITTED INPATIENT Condition: Stable Admissions Decision to Admit Reason: Admit from ER (General) Decision to Admit/Date: Mar 30, 2022 Time/Decision to Admit Time: 20:10 Departure-Patient Inst. Referrals: JOSE MANUEL LUBIN MD (PCP/Family) Primary Care Physician Copy Copies To 1: JOSE MANUEL LUBIN MD, JOSHUA T MD Mar 30, 2022 18:35
[2022-03-30 18:53] LABS: INR 1.6 (0.8-1.4); PROTHROMBIN TIME PATIENT 19.5 SEC (12.2-14.7)
[2022-03-30 18:58] LABS: ALBUMIN 4.3 GM/DL (3.2-4.5); BAND NEUTROPHILS 0 %; BASOPHILS % (MANUAL) 0 %; EOSINOPHILS % (MANUAL) 3 %; LYMPHOCYTES % (MANUAL) 7 %; MONOCYTES % (MANUAL) 8 %; NEUTROPHILS % (MANUAL) 82 %; RBC MORPH NORMAL
[2022-03-30 19:00] LABS: CALCIUM 9.7 MG/DL (8.5-10.1)
[2022-03-30 19:01] LABS: TOTAL PROTEIN 7.3 GM/DL (6.4-8.2)
[2022-03-30 19:03] LABS: BILIRUBIN,TOTAL 0.8 MG/DL (0.1-1.0)
[2022-03-30 19:05] LABS: CREATININE SERUM 1.01 MG/DL (0.60-1.30)
[2022-03-30 19:07] LABS: MAGNESIUM 1.7 MG/DL (1.6-2.4)
--- NOTE | 2022-03-30 19:27 | Diagnostic Imaging Report ---
CLINICAL INDICATION: Patient with chest pain and cough all weekend. Patient has history of bronchitis and A-fib. EXAM: Portable chest x-ray upright view. COMPARISON: Chest x-ray dated 01/27/2022. FINDINGS: Stable cardiomegaly with mild pulmonary vascular prominence again noted. There is groundglass and patchy airspace opacities involving both lungs most pronounced in the periphery and left lung base region. There is no pleural effusion or pneumothorax. There are postop change to the chest consistent with CABG again seen. IMPRESSION: 1: There is cardiomegaly with mild pulmonary vascular congestion. 2: There are mild patchy airspace opacities involving both lungs which may represent mild pulmonary congestion or lung infiltrates. Superimposed chronic lung changes also may be present. Dictated by: Dictated on workstation # [id number]
[2022-03-30] MEDS ORDERED: CEFEPIME INJECTION 2,000 MG in NS (IVPB) 50 ML IV ONE (20:00)
[2022-03-30] MEDS ORDERED: hydrALAZINE (APESOLINE) 20 MG/ML VIAL IV ONE (20:15)
[2022-03-30 20:22] LABS: BILIRUBIN,URINE NEGATIVE (NEGATIVE); CLARITY,URINE SL CLOUDY; COLOR,URINE YELLOW; GLUCOSE, URINE (UA) NEGATIVE (NEGATIVE); KETONES,URINE NEGATIVE (NEGATIVE); LEUKOCYTE ESTERASE ,URINE NEGATIVE (NEGATIVE); NITRITE,URINE NEGATIVE (NEGATIVE); PROTEIN,URINE TRACE (NEGATIVE)
[2022-03-30 20:31] LABS: BACTERIA,URINE NEGATIVE /HPF; RBC,URINE RARE /HPF; WBC,URINE RARE /HPF
[2022-03-30 21:36] VITALS: BP 179/79
[2022-03-30] MEDS ORDERED: CATHETER FLUSH 10 ML SYR IVP PRN (21:45)
[2022-03-30] MEDS ORDERED: ACETAMINOPHEN 500 MG TAB (TYLENOL) PO PRN (21:45)
[2022-03-30] MEDS ORDERED: ONDANSETRON 4 MG/2 ML (SDV) Z0FRAN IV PRN (21:45)
[2022-03-30] MEDS: RIVAROXABAN 20 MG TABLET (XARELTO) PO SCH (21:58)
[2022-03-30] MEDS: CATHETER FLUSH 10 ML SYR IVP SCH (21:58)
[2022-03-30] MEDS ORDERED: RT-ALBUTEROL/IPRATROPIUM 3 ML (DUONEB) VIAL INH PRN (22:00)
[2022-03-30 22:14] VITALS: BP 178/69
[2022-03-30] MEDS: RT-ALBUTEROL/IPRATROPIUM 3 ML (DUONEB) VIAL INH SCH (22:31)
[2022-03-31 00:16] VITALS: BP 156/66
[2022-03-31] MEDS: CEFEPIME 1,000 MG/NS 50 ML IVPB IV SCH ×8 (02:28→21:04)
[2022-03-31] MEDS: RT-ALBUTEROL/IPRATROPIUM 3 ML (DUONEB) VIAL INH SCH ×6 (02:34→21:57)
[2022-03-31 04:19] VITALS: BP 155/67
[2022-03-31] MEDS: CATHETER FLUSH 10 ML SYR IVP SCH ×3 (06:11→22:01)
[2022-03-31 06:54] LABS: TRIGLYCERIDES 40 MG/DL (<150); VLDL CHOLESTEROL 8 MG/DL (5-40)
[2022-03-31 06:59] LABS: CHOLESTEROL 87 MG/DL (< 200)
[2022-03-31 07:00] LABS: HDL CHOLESTEROL 26 MG/DL (40-60)
[2022-03-31 07:44] VITALS: BP 146/65
--- NOTE | 2022-03-31 08:46 | History & Physical ---
History of Present Illness History of Present Illness Reason for visit/HPI Pt is a 76 y/o male who was admitted to the hospital with dx of sepsis and pneumonia. Gaston had been feeling slightly unwell, had a cough and congestion which progressively worsened causing him to feel like his heart was skipping. He reports that he does not feel well this morning due to the afib acting up. He reports that every time his amiodarone dose is adjusted, he feels bad and has to go back to a low dose of amiodarone He denies chest pain, dizziness, nausea, headache, confusion. He denies feeling feverish, or having chills/shaking. Date of Admission Mar 30, 2022 at 20:10 Date Seen by a Provider: Mar 31, 2022 Time Seen by a Provider: 08:40 Attending Physician Jose Manuel Lubin MD Admitting Physician Admitting Physician: Jose Manuel Lubin MD Attending Physician: Jose Manuel Lubin MD Consult Dr. Swanson - cardiology Allergies and Home Medications Allergies Coded Allergies: adhesive (Verified Allergy, Intermediate, RASH, 01/09/19) Patient Home Medication List Home Medication List Reviewed: Yes Acetaminophen (Tylenol) 325 Mg Tablet, 650 MG PO Q6H PRN for PAIN-MILD (1-4), (Reported) Entered as Reported by: QUINCY PEDERSON on 03/31/22 9811 Last Action: Reviewed Albuterol Sulfate (Proair Hfa) 1 Puff Puff, 2 PUFF IH Q4H PRN for SHORTNESS OF BREATH, (Reported) Entered as Reported by: EBENEZER CARCAMO on 01/27/22 1513 Last Action: Reviewed Amiodarone HCl (Amiodarone HCl) 200 Mg Tablet, 100 MG PO BID, (Reported) Entered as Reported by: GABBY COUGHLIN on 01/09/19 1158 Last Action: Reviewed Atorvastatin Calcium (Atorvastatin Calcium) 40 Mg Tablet, 40 MG PO HS, (Reported) Entered as Reported by: GABBY COUGHLIN on 01/09/19 115 Last Action: Reviewed Calcium Carbonate (Tums) 200 Mg Calcium (500 Mg) Tab.chew, 400-600 MG PO DAILY PRN for HEARTBURN, (Reported) Entered as Reported by: QUINCY PEDERSON on 03/31/22 3239 Last Action: Reviewed Cetirizine HCl (Zyrtec) 10 Mg Tablet, 10 MG PO DAILY PRN for ALLERGIES, (Reported) Entered as Reported by: QUINCY PEDERSON on 03/31/221358 Last Action: Reviewed Doxazosin Mesylate (Doxazosin Mesylate) 2 Mg Tablet, 2 MG PO BID, (Reported) Entered as Reported by: EBENEZER CARCAMO on 01/27/221512 Last Action: Reviewed Furosemide (Furosemide) 40 Mg Tablet, 40 MG PO DAILY PRN for FLUID RETENTION, (Reported) Entered as Reported by: GABBY COUGHLIN on 01/09/191157 Last Action: Reviewed Metoprolol Tartrate (Metoprolol Tartrate) 100 Mg Tablet, 100 MG PO BID, (Reported) Entered as Reported by: EBENEZER CARCAMO on 01/27/221512 Last Action: Converted Pantoprazole Sodium (Pantoprazole Sodium) 40 Mg Tablet.dr, 40 MG PO DAILY PRN for HEARTBURN, (Reported) Entered as Reported by: FLACO HENDERSON on 06/13/1852 Last Action: Reviewed Potassium Chloride (Potassium Chloride) 10 Meq Tab.er.prt, 10 MEQ PO DAILY PRN for WHEN TAKING DOSE OF FUROSEMIDE, (Reported) Entered as Reported by: EBENEZER CARCAMO on 01/27/221512 Last Action: Reviewed Rivaroxaban (Xarelto) 20 Mg Tablet, 20 MG PO BID, (Reported) Entered as Reported by: QUINCY PEDERSON on 03/31/221358 Last Action: Reviewed Discontinued Medications Apixaban (Eliquis) 5 Mg Tablet, 5 MG PO BID, (Reported) Discontinued Reason: No Longer Taking Entered as Reported by: GABBY COUGHLIN on 01/09/191157 Last Action: Discontinued Aspirin (Aspirin EC) 81 Mg Tablet.dr, 81 MG PO DAILY, (Reported) Discontinued Reason: No Longer Taking Entered as Reported by: GABBY COUGHLIN on 01/09/191157 Last Action: Discontinued Azithromycin (Azithromycin) 250 Mg Tablet, 250 MG PO UD Discontinued Reason: No Longer Taking Prescribed by: JOSE MANUEL LUBIN on 01/28/22946 Last Action: Discontinued Cefdinir (Cefdinir) 300 Mg Capsule, 300 MG PO BID Discontinued Reason: No Longer Taking Prescribed by: JOSE MANUEL LUBIN on 01/28/22946 Last Action: Discontinued Dexamethasone (Dexamethasone) 2 Mg Tablet, 2 MG PO DAILY Discontinued Reason: No Longer Taking Prescribed by: JOSE MANUEL LUBIN on 01/28/22946 Last Action: Discontinued Ipratropium/Albuterol Sulfate (Iprat-Albut 0.5-3(2.5) mg/3 ml) 0.5 Mg-3 Mg (2.5 Mg Base)/3 Ml Ampul.neb, 3 ML INH RTQ4HR PRN for DYSPNEA Discontinued Reason: No Longer Taking Prescribed by: JOSE MANUEL LUBIN on 01/28/22946 Last Action: Discontinued Nebulizer (Aeroneb Go Nebuliser) 1 Each Each, EACH MC UD, (DME) Discontinued Reason: No Longer Taking Prescribed by: JOSE MANUEL LUBIN on 01/28/22946 Last Action: Discontinued Past Rniewtv-Aqcwro-Mwxfnk Hx Patient Social History Marrital Status: Living Status: lives near [place] with his Employed/Student: retired Tobacco Use?: No Smoking Status: Never a Smoker Smokeless type used: Chew Smokeless Tobacco Frequency: Former User Use of E-Cig and/or Vaping dev: No Substance use?: No Alcohol Use?: No Pt feels they are or have been: No Immunizations Up To Date Date of Influenza Vaccine: Apr 27, 2018 Tetanus Booster (TDap): Less Than 5 Years Date of Pneumonia Vaccine: Mar 15, 2012 Seasonal Allergies Seasonal Allergies: No Current Status Advance Directives: No Communicates: Verbally Primary Language: Malaysian Preferred Spoken Language: Malaysian Is interpretation needed?: No Sensory deficits: Hearing impairment Past Medical History Surgeries: Cardiac, CABG, Vasectomy Chronic Bronchitis (Recurrent episodes, several per year) Atrial Fibrillation (Paroxysmal), Chronic Edema/Swelling (Right greater than left due to prior ankle fracture), Coronary Artery Disease, High Cholesterol, Hypertension Sexually Transmitted Disease: No HIV/AIDS: No Gastroesophageal Reflux Arthritis, Fractures Loss of Vision: Denies Skin Did You Recieve Any Treatments: Yes What Type of Treatment Did You: Surgical Intervention Blood Disorders: No Adverse Reaction/Blood Tranf: No (N/A) Family Medical History Reviewed Nursing Family Hx FH: leukemia 19 FATHER 19 MOTHER Cancer, Hypertension PAST SURGICAL HISTORY: -2 VESSEL CABG 11/2018 Review of Systems Constitutional: No chills, No diaphoresis, No fever, No malaise; weakness EENTM: No hoarseness, No mouth pain, No throat pain Respiratory: cough; No dyspnea on exertion; short of breath Cardiovascular: Hx of Intervention, palpitations Gastrointestinal: No abdominal pain, No constipation, No diarrhea, No nausea, No vomiting Genitourinary: no symptoms reported Musculoskeletal: No muscle stiffness, No muscle weakness Skin: no symptoms reported Psychiatric/Neurological: Denies Anxiety, Denies Depressed; Weakness All Other Systems Reviewed Negative Unless Noted: Yes Physical Exam Vital Signs Vital Signs - First Documented 03/30/22 03/30/22 03/30/22 03/30/22 18:11 18:25 21:15 21:45 Temp 36.9 Pulse 94 Resp 22 B/P (MAP) 163/82 Pulse Ox 95 O2 Delivery Nasal Cannula O2 Flow Rate 2.00 FiO2 28 Capillary Refill : Height, Weight, BMI Height: 6'1.00" Weight: 208lbs. 3.0oz. 94.397819kj; 29.51 BMI Method:Stated General Appearance: No Apparent Distress, WD/WN HEENT: PERRL/EOMI, TMs Normal, Normal ENT Inspection, Pharynx Normal Neck: Full Range of Motion, Non Tender, Supple Respiratory: Chest Non Tender, Lungs Clear, Normal Breath Sounds, No Accessory Muscle Use, No Respiratory Distress Cardiovascular: Irregularly Irregular Gastrointestinal: Normal Bowel Sounds, No Organomegaly, Non Tender, Soft Rectal: Deferred Back: Normal Inspection, No CVA Tenderness Extremity: Normal Capillary Refill, Normal Range of Motion, Non Tender, No Calf Tenderness, No Pedal Edema Neurologic/Psychiatric: Alert, Oriented x3, No Motor/Sensory Deficits, Normal Mood/Affect Skin: Normal Color, Warm/Dry Lymphatic: No Adenopathy Assessment/Plan Assessment and Plan Pneumonia Sepsis Atrial fibrillation Cough Chronic Hypertension Hyperlipidemia Pneumonia with simple Sepsis - pt admitted, started on IV antibiotics, will monitor chest xrays intermittently during hospitalization. - breathing treatment with mat protocol. - monitor labs Atrial fibrillation - consult to Dr. Swanson - pt's senior care specialist - restarted pt's low dose amiodarone - restarted metoprolol - restarted xarelto Chronic Hypertension - restarted metoprolol Hyperlipidemia - Hx of CAD - supportive care DVT prophylaxis with xarelto Gi prophylaxis with ppi therapy Admission Diagnosis Pneumonia Sepsis Atrial fibrillation Cough Chronic Hypertension Hyperlipidemia Admission Status: Inpatient Order (span 2 midnights) Reason for Inpatient Admission: inpatient admission for pneumonia, sepsis - will require at least 2-3 midnights JOSE MANUEL LUBIN MD Mar 31, 2022 08:46
[2022-03-31] MEDS ORDERED: polyethylene glycoL POWDER 17 GM (MIRALAX) PACK PO NR (09:30)
[2022-03-31] MEDS ORDERED: meTOprolol TARTRATE 50 MG (LOPRESSOR) TAB PO NR (09:30)
--- NOTE | 2022-03-31 09:33 | Consultation-Cardiology ---
HPI-Cardiology Cardiology Consultation: Date of Consultation 03/31/22 Time Seen by a Provider: 10:20 Date of Admission 03-30-22 Attending Physician Jose Manuel Lubin MD Admitting Physician Admitting Physician: Jose Manuel Lubin MD Attending Physician: Jose Manuel Lubin MD Consulting Physician Mercy Swanson MD HPI: Chief Complaint: Hypoxia Mr. Murry is a 76 yr old male admitted to [facility] from the ED due to pneumonia with sepsis. He reports over the course of the last several days he developed, cough, chills and increasing SOB. He reports increased episodes of palpitations which he feels has been d/t his a-fib. Episodes of palpitations only last for a few minutes and then resolve. He denies any CP, syncope or near syncope. No LE swelling. He has been compliant with his Xarelto, but he thinks he may have been taking it twice a day instead of once a day. He reports he is feeling much better this morning. Review of Systems-Cardiology Review of Systems Constitutional: chills, malaise Eyes: No vision change Ears/Nose/Throat: No epistaxis, No recent hearing loss Respiratory: As described under HPI Cardiovascular: As described under HPI Gastrointestinal: As described under HPI Genitourinary: No dysuria, No hematuria Musculoskeletal: no symptoms reported Skin: No rash on exposed areas, No ulcerations on exposed areas Psychiatric/Neurological: No anxiety, No depression, No seizure, No focal weakness, No syncope Hematologic: No bleeding abnormalities OIW-Wtkake-Bvlygo Hx Patient Social History Smoking Status: Never a Smoker 2nd Hand Smoke Exposure: No Have you traveled recently?: No Alcohol Use?: No Pt feels they are or have been: No Immunizations Up To Date Tetanus Booster (TDap): Less than 5yrs Date of Pneumonia Vaccine: Mar 15, 2012 Date of Influenza Vaccine: Apr 27, 2018 Past Medical History PMH As described under Assessment. Family Medical History Family Medical History: does not report fam h/o early CAD or SCD Family History: FH: leukemia 19 FATHER 19 MOTHER Allergies and Home Medications Allergies Coded Allergies: adhesive (Verified Allergy, Intermediate, RASH, 01/09/19) Patient Home Medication List Albuterol Sulfate (Proair Hfa) 1 Puff Puff, 2 PUFF IH Q4H PRN for SHORTNESS OF BREATH, (Reported) Entered as Reported by: EBENEZER CARCAMO on 01/27/221512 Amiodarone HCl (Amiodarone HCl) 200 Mg Tablet, 100 MG PO DAILY, (Reported) Entered as Reported by: GABBY COUGHLIN on 01/09/191157 Apixaban (Eliquis) 5 Mg Tablet, 5 MG PO BID, (Reported) Entered as Reported by: GABBY COUGHLIN on 01/09/19 115 Aspirin (Aspirin EC) 81 Mg Tablet.dr, 81 MG PO DAILY, (Reported) Entered as Reported by: GABBY COUGHLIN on 01/09/19 115 Atorvastatin Calcium (Atorvastatin Calcium) 40 Mg Tablet, 40 MG PO HS, (Reported) Entered as Reported by: GABBY COUGHLIN on 01/09/191157 Azithromycin (Azithromycin) 250 Mg Tablet, 250 MG PO UD Prescribed by: JOSE MANUEL LUBIN on 01/28/22946 Cefdinir (Cefdinir) 300 Mg Capsule, 300 MG PO BID Prescribed by: JOSE MANUEL LUBIN on 01/28/22946 Dexamethasone (Dexamethasone) 2 Mg Tablet, 2 MG PO DAILY Prescribed by: JOSE MANUEL LUBIN on 01/28/22946 Doxazosin Mesylate (Doxazosin Mesylate) 2 Mg Tablet, 2 MG PO BID, (Reported) Entered as Reported by: EBENEZER CARCAMO on 01/27/221512 Furosemide (Furosemide) 40 Mg Tablet, 40 MG PO DAILY PRN for FLUID RETENTION, (Reported) Entered as Reported by: GABBY COUGHLIN on 01/09/191157 Ipratropium/Albuterol Sulfate (Iprat-Albut 0.5-3(2.5) mg/3 ml) 0.5 Mg-3 Mg (2.5 Mg Base)/3 Ml Ampul.neb, 3 ML INH RTQ4HR PRN for DYSPNEA Prescribed by: JOSE MANUEL LUBIN on 01/28/22946 Metoprolol Tartrate (Metoprolol Tartrate) 100 Mg Tablet, 100 MG PO BID, (R eported) Entered as Reported by: EBENEZER CARCAMO on 01/27/221512 Nebulizer (Aeroneb Go Nebuliser) 1 Each Each, EACH MC UD, (DME) Prescribed by: JOSE MANUEL LUBIN on 01/28/22946 Pantoprazole Sodium (Pantoprazole Sodium) 40 Mg Tablet.dr, 40 MG PO DAILY PRN for HEARTBURN, (Reported) Entered as Reported by: FLACO HENDERSON on 06/13/18 0909 Potassium Chloride (Potassium Chloride) 10 Meq Tab.er.prt, 10 MEQ PO DAILY PRN for WHEN TAKING DOSE OF FUROSEMIDE, (Reported) Entered as Reported by: EBENEZER CARCAMO on 01/27/22 1513 Physical Exam-Cardiology Physical Exam Vital Signs/I&O 03/30/22 03/31/22 03/31/22 03/31/22 22:50 00:16 01:00 02:34 Temp 37.5 Pulse 78 69 Resp 20 B/P (MAP) 156/66 (96) Pulse Ox 92 O2 Delivery Nasal Cannula Nasal Cannula Nasal Cannula O2 Flow Rate 2.00 2.00 2.00 FiO2 91 03/31/22 03/31/22 03/31/22 03/31/22 04:19 07:25 07:44 08:00 Temp 36.9 37.0 Pulse 80 70 Resp 20 18 B/P (MAP) 155/67 (96) 146/65 (92) Pulse Ox 91 93 93 O2 Delivery Nasal Cannula Nasal Cannula Nasal Cannula Nasal Cannula O2 Flow Rate 2.00 2.00 2.00 FiO2 97 03/31/22 03/31/22 08:40 10:19 Pulse 93 O2 Delivery Room Air FiO2 94 03/31/22 00:00 Intake Total 50 ml Balance 50 ml Capillary Refill : Constitutional: AAO x 3, well-developed, well-nourished HEENT: PERRL, hearing is well preserved, oral hygience is good Neck: No carotid bruit; carotid pulses are 2 + bilaterally Respiratory: No accessory muscle use, No respiratory distress; chest expansion is symmetric, chest is bilaterally symmetric, other (diminished breath sounds lower lobes bilat) Cardiovascular: regular rate-rhythm; No JVD; S1 and S2 Gastrointestinal: No tender; soft, round, audible bowel sounds Extremities: no lower extremity edema bilateral Neurologic/Psychiatric: grossly intact (moves all extremities) Skin: normal color, warm/dry; No rash on exposed areas, No ulcerations on exposed areas Data Review Labs Laboratory Tests 03/30/22 18:00: Procalcitonin 0.03 03/30/22 18:15: White Blood Count 13.8H, Red Blood Count 4.61, Hemoglobin 12.6L, Hematocrit 39L, Mean Corpuscular Volume 85, Mean Corpuscular Hemoglobin 27, Mean Corpuscular Hemoglobin Concent 32, Red Cell Distribution Width 14.1, Platelet Count 211, Mean Platelet Volume 9.2, Immature Granulocyte % (Auto) 0, Neutrophils (%) (Auto) 82H, Lymphocytes (%) (Auto) 6L, Monocytes (%) (Auto) 10, Eosinophils (%) (Auto) 2, Basophils (%) (Auto) 0, Neutrophils # (Auto) 11.3H, Lymphocytes # (Auto) 0.8L, Monocytes # (Auto) 1.4H, Eosinophils # (Auto) 0.3, Basophils # (Auto) 0.0, Immature Granulocyte # (Auto) 0.1, Neutrophils % (Manual) 82, Lymphocytes % (Manual) 7, Monocytes % (Manual) 8, Eosinophils % (Manual) 3, Basophils % (Manual) 0, Band Neutrophils 0, Blood Morphology Comment NORMAL, Prothrombin Time 19.5H, INR Comment 1.6H, Activated Partial Thromboplast Time 37H, Sodium Level 139, Potassium Level 4.0, Chloride Level 101, Carbon Dioxide Level 25, Anion Gap 13, Blood Urea Nitrogen 14, Creatinine 1.01, Estimat Glomerular Filtration Rate 77, BUN/Creatinine Ratio 14, Glucose Level 108H, Calcium Level 9.7, Corrected Calcium 9.5, Magnesium Level 1.7, Total Bilirubin 0.8, Aspartate Amino Transf (AST/SGOT) 10, Alanine Aminotransferase (ALT/SGPT) 14, Alkaline Phosphatase 78, Myoglobin 34.5, Troponin I < 0.028, C-Reactive Protein High Sensitivity 3.80H, B-Type Natriuretic Peptide 143.2H, Total Protein 7.3, Albumin 4.3 03/30/22 18:25: Influenza Type A (RT-PCR) Not Detected, Influenza Type B (RT-PCR) Not Detected, SARS-CoV-2 RNA (RT-PCR) Not Detected 03/30/22 20:13: Lactic Acid Level 0.86 03/30/22 20:16: Urine Color YELLOW, Urine Clarity SL CLOUDY, Urine pH 7.0, Urine Specific Bend 1.015L, Urine Protein TRACEH, Urine Glucose (UA) NEGATIVE, Urine Ketones NEGATIVE, Urine Nitrite NEGATIVE, Urine Bilirubin NEGATIVE, Urine Urobilinogen 0.2, Urine Leukocyte Esterase NEGATIVE, Urine RBC (Auto) NEGATIVE, Urine RBC RARE, Urine WBC RARE, Urine Crystals NONE, Urine Bacteria NEGATIVE, Urine Casts NONE, Urine Mucus NEGATIVE, Urine Culture Indicated NO 03/31/22 05:32: Triglycerides Level 40, Cholesterol Level 87, LDL Cholesterol Direct 53, VLDL Cholesterol 8, HDL Cholesterol 26L Radiology NAME: [facility] REC#: [id number] PT STATUS: ADM IN : 1945 PHYSICIAN: LANI UREÑA MD ADMIT DATE: 03/30/22 Signed Date of Exam:03/30/22 CHEST 1 VIEW, AP/PA ONLY CLINICAL INDICATION: Patient with chest pain and cough all weekend. Patient has history of bronchitis and A-fib. EXAM: Portable chest x-ray upright view. COMPARISON: Chest x-ray dated 01/27/2022. FINDINGS: Stable cardiomegaly with mild pulmonary vascular prominence again noted. There is groundglass and patchy airspace opacities involving both lungs most pronounced in the periphery and left lung base region. There is no pleural effusion or pneumothorax. There are postop change to the chest consistent with CABG again seen. IMPRESSION: 1: There is cardiomegaly with mild pulmonary vascular congestion. 2: There are mild patchy airspace opacities involving both lungs which may represent mild pulmonary congestion or lung infiltrates. Superimposed chronic lung changes also may be present. Dictated by: Dictated on workstation # [id number] Dict: 03/30/221917 Trans: 03/30/222327 [facility] [phone] Interpreted by: KEISHA ALLEN MD Electronically signed by: KEISHA ALLEN MD 03/30/222327 ECG Impression ECG Initial ECG Rhythm: Normal Sinus A/P-Cardiology Assessment/Admission Diagnosis Pneumonia with sepsis - management per medical services PAF, fist noted merlin-CABG. - Holter of 12/21/19 showed NSR with brief runs of SVT/AF, no VT, no significant bradycardia. - Holter of 10/03/20: SSS with PAF with avg heart rate 64 bpm, no pauses of greater than 3 sec - Xarelto for stroke prophylaxis CAD: - S/p CABG x 2 on 12/22/18, following MD. ALEXANDER to LAD, reverse saphenous vein graft to PDA. Cx OM system too small to graft. Sternal plating with titanium plate at the manubrium by Dr. Lee Mild ischemic cardiomyopathy. - Pre-CABG LVEF 45-50% and inf wall hypokinesis (on pre-op card cath by Dr Arteaga). - Echo 01/09/19: LVEF 50-55%, grade 2 diastolic dysfunction, RVSP 15 mmHg, mild to mod MR. - Echo of 12/21/19: LVEF 60-65%, mod dil LA mild MR - Echo of 10-03-20: LVEF 55-60%; PASP 25-30 mmHg Hypertension - fairly well controlled Hyperlipidemia - statin tx - managed by PCP Carotid dz - Carotid u/s of 03-28-21 shows minimal bilat plaque Suspected [place] - refuses studies in the past Discussion and Recomendations Pneumonia with sepsis - management per medical services PAF - Continue home medications including Xarelto once a day Monitor lab - replace electrolytes as indicated HTN - continue home medications - adjust as indicated Further recs will be based on his hospital course We would like to thank Dr. Lubin for this consult SHAHIDA RAMOS Mar 31, 2022 09:33
[2022-03-31] MEDS: SENNA W/DOCUSATE (SENOKOT S) TABLET PO SCH ×2 (10:34→21:03)
[2022-03-31] MEDS: AMIODARONE 200 MG (CORDARONE) TAB PO SCH ×2 (10:35→21:03)
[2022-03-31 12:01] VITALS: BP 135/61
[2022-03-31] MEDS ORDERED: CETI10TA49 PO (13:59)
[2022-03-31] MEDS ORDERED: RIVA20TA PO (13:59)
[2022-03-31] MEDS ORDERED: ACET325T38 PO (13:59)
[2022-03-31] MEDS ORDERED: CALC500T7 PO (13:59)
[2022-03-31 15:24] VITALS: BP 141/66
--- NOTE | 2022-03-31 15:25 | Consultation-Cardiology ---
HPI-Cardiology Cardiology Consultation: Date of Consultation 03/31/22 Time Seen by a Provider: 14:30 Date of Admission Attending Physician Jose Manuel Lubin MD Admitting Physician Admitting Physician: Jose Manuel Lubin MD Attending Physician: Jose Manuel Lubin MD Consulting Physician NIECY MAHMOOD MD, MA, FACP, FACC, FSCAI, CCDS HPI: Chief Complaint: Hypoxia Mr. Natarajan is a 76 yr old male admitted to [facility] from the ED due to pneumonia with sepsis. He reports over the course of the last several days he developed, cough, chills and increasing SOB. He reports increased episodes of palpitations which he feels has been d/t his a-fib. Episodes of palpitations only last for a few minutes and then resolve. He denies any CP, syncope or near syncope. No LE swelling. He has been compliant with his Xarelto, but he thinks he may have b een taking it twice a day instead of once a day. He reports he is feeling much better this morning. Review of Systems-Cardiology Review of Systems Constitutional: chills, malaise Eyes: No vision change Ears/Nose/Throat: No epistaxis, No recent hearing loss Respiratory: As described under HPI Cardiovascular: As described under HPI Gastrointestinal: As described under HPI Genitourinary: No dysuria, No hematuria Musculoskeletal: no symptoms reported Skin: No rash on exposed areas, No ulcerations on exposed areas Psychiatric/Neurological: No anxiety, No depression, No seizure, No focal weakness, No syncope Hematologic: No bleeding abnormalities LWA-Ihicfk-Jheqvp Hx Patient Social History Smoking Status: Never a Smoker 2nd Hand Smoke Exposure: No Have you traveled recently?: No Alcohol Use?: No Pt feels they are or have been: No Immunizations Up To Date Tetanus Booster (TDap): Less than 5yrs Date of Pneumonia Vaccine: Mar 15, 2012 Date of Influenza Vaccine: Apr 27, 2018 Past Medical History PMH As described under Assessment. Family Medical History Family Medical History: does not report fam h/o early CAD or SCD Family History: FH: leukemia 19 FATHER 19 MOTHER Allergies and Home Medications Allergies Coded Allergies: adhesive (Verified Allergy, Intermediate, RASH, 01/09/19) Patient Home Medication List Home Medication List Reviewed: Yes Acetaminophen (Tylenol) 325 Mg Tablet, 650 MG PO Q6H PRN for PAIN-MILD (1-4), (Reported) Entered as Reported by: QUINCY PEDERSON on 03/31/221358 Last Action: Reviewed Albuterol Sulfate (Proair Hfa) 1 Puff Puff, 2 PUFF IH Q4H PRN for SHORTNESS OF BREATH, (Reported) Entered as Reported by: EBENEZER CARCAMO on 01/27/221512 Last Action: Reviewed Amiodarone HCl (Amiodarone HCl) 200 Mg Tablet, 100 MG PO BID, (Reported) Entered as Reported by: GABBY CUOGHLIN on 01/09/191157 Last Action: Reviewed Atorvastatin Calcium (Atorvastatin Calcium) 40 Mg Tablet, 40 MG PO HS, (Reported) Entered as Reported by: GABBY COUGHLIN on 01/09/191157 Last Action: Reviewed Calcium Carbonate (Tums) 200 Mg Calcium (500 Mg) Tab.chew, 400-600 MG PO DAILY PRN for HEARTBURN, (Reported) Entered as Reported by: QUINCY PEDERSON on 03/31/221358 Last Action: Reviewed Cetirizine HCl (Zyrtec) 10 Mg Tablet, 10 MG PO DAILY PRN for ALLERGIES, (Reported) Entered as Reported by: QUINCY PEDERSON on 03/31/221358 Last Action: Reviewed Doxazosin Mesylate (Doxazosin Mesylate) 2 Mg Tablet, 2 MG PO BID, (Reported) Entered as Reported by: EBENEZER CARCAMO on 01/27/221512 Last Action: Reviewed Furosemide (Furosemide) 40 Mg Tablet, 40 MG PO DAILY PRN for FLUID RETENTION, (Reported) Entered as Reported by: GABBY COUGHLIN on 01/09/191157 Last Action: Reviewed Metoprolol Tartrate (Metoprolol Tartrate) 100 Mg Tablet, 100 MG PO BID, (Reported) Entered as Reported by: EBENEZER CARCAMO on 01/27/221512 Last Action: Reviewed Pantoprazole Sodium (Pantoprazole Sodium) 40 Mg Tablet.dr, 40 MG PO DAILY PRN for HEARTBURN, (Reported) Entered as Reported by: FLACO HENDERSON on 06/13/18 0952 Last Action: Reviewed Potassium Chloride (Potassium Chloride) 10 Meq Tab.er.prt, 10 MEQ PO DAILY PRN for WHEN TAKING DOSE OF FUROSEMIDE, (Reported) Entered as Reported by: EBENEZER CARCAMO on 01/27/22 1513 Last Action: Reviewed Rivaroxaban (Xarelto) 20 Mg Tablet, 20 MG PO BID, (Reported) Entered as Reported by: QUINCY PEDERSON on 03/31/22 1359 Last Action: Reviewed Discontinued Medications Apixaban (Eliquis) 5 Mg Tablet, 5 MG PO BID, (Reported) Discontinued Reason: No Longer Taking Entered as Reported by: GABBY COUGHLIN on 01/09/191157 Last Action: Discontinued Aspirin (Aspirin EC) 81 Mg Tablet.dr, 81 MG PO DAILY, (Reported) Discontinued Reason: No Longer Taking Entered as Reported by: GABBY COUGHLIN on 01/09/191157 Last Action: Discontinued Azithromycin (Azithromycin) 250 Mg Tablet, 250 MG PO UD Discontinued Reason: No Longer Taking Prescribed by: JOSE MANUEL LUBIN on 01/28/22946 Last Action: Discontinued Cefdinir (Cefdinir) 300 Mg Capsule, 300 MG PO BID Discontinued Reason: No Longer Taking Prescribed by: JOSE MANUEL LUBIN on 01/28/22946 Last Action: Discontinued Dexamethasone (Dexamethasone) 2 Mg Tablet, 2 MG PO DAILY Discontinued Reason: No Longer Taking Prescribed by: JOSE MANUEL LUBIN on 01/28/22946 Last Action: Discontinued Ipratropium/Albuterol Sulfate (Iprat-Albut 0.5-3(2.5) mg/3 ml) 0.5 Mg-3 Mg (2.5 Mg Base)/3 Ml Ampul.neb, 3 ML INH RTQ4HR PRN for DYSPNEA Discontinued Reason: No Longer Taking Prescribed by: JOSE MANUEL LUBIN on 01/28/22946 Last Action: Discontinued Nebulizer (Aeroneb Go Nebuliser) 1 Each Each, EACH UD, (DME) Discontinued Reason: No Longer Taking Prescribed by: JOSE MANUEL LUBIN on 01/28/22946 Last Action: Discontinued Physical Exam-Cardiology Physical Exam Vital Signs/I&O 03/31/22 03/31/22 03/31/22 03/31/22 04:19 07:25 07:44 08:00 Temp 36.9 37.0 Pulse 80 70 Resp 20 18 B/P (MAP) 155/67 (96) 146/65 (92) Pulse Ox 91 93 93 O2 Delivery Nasal Cannula Nasal Cannula Nasal Cannula Nasal Cannula O2 Flow Rate 2.00 2.00 2.00 FiO2 97 03/31/22 03/31/22 03/31/22 03/31/22 08:40 10:19 12:01 12:28 Temp 36.7 Pulse 93 93 78 Resp 18 B/P (MAP) 135/61 (85) Pulse Ox 96 O2 Delivery Room Air Room Air FiO2 94 03/31/22 15:06 O2 Delivery Room Air FiO2 95 03/31/22 00:00 Intake Total 50 ml Balance 50 ml Capillary Refill : Constitutional: AAO x 3, well-developed, well-nourished HEENT: PERRL, hearing is well preserved, oral hygience is good Neck: No carotid bruit; carotid pulses are 2 + bilaterally Respiratory: No accessory muscle use, No respiratory distress; chest expansion is symmetric, chest is bilaterally symmetric, other (diminished breath sounds lower lobes bilat) Cardiovascular: regular rate-rhythm; No JVD; S1 and S2 Gastrointestinal: No tender; soft, round, audible bowel sounds Extremities: no lower extremity edema bilateral Neurologic/Psychiatric: grossly intact (moves all extremities) Skin: normal color, warm/dry; No rash on exposed areas, No ulcerations on expo sed areas Data Review Labs Laboratory Tests 03/30/22 18:00: Procalcitonin 0.03 03/30/22 18:15: White Blood Count 13.8H, Red Blood Count 4.61, Hemoglobin 12.6L, Hematocrit 39L, Mean Corpuscular Volume 85, Mean Corpuscular Hemoglobin 27, Mean Corpuscular Hemoglobin Concent 32, Red Cell Distribution Width 14.1, Platelet Count 211, Mean Platelet Volume 9.2, Immature Granulocyte % (Auto) 0, Neutrophils (%) (Auto) 82H, Lymphocytes (%) (Auto) 6L, Monocytes (%) (Auto) 10, Eosinophils (%) (Auto) 2, Basophils (%) (Auto) 0, Neutrophils # (Auto) 11.3H, Lymphocytes # (Auto) 0.8L, Monocytes # (Auto) 1.4H, Eosinophils # (Auto) 0.3, Basophils # (Auto) 0.0, Immature Granulocyte # (Auto) 0.1, Neutrophils % (Manual) 82, Lymphocytes % (Manual) 7, Monocytes % (Manual) 8, Eosinophils % (Manual) 3, Basophils % (Manual) 0, Band Neutrophils 0, Blood Morphology Comment NORMAL, Prothrombin Time 19.5H, INR Comment 1.6H, Activated Partial Thromboplast Time 37H, Sodium Level 139, Potassium Level 4.0, Chloride Level 101, Carbon Dioxide Level 25, Anion Gap 13, Blood Urea Nitrogen 14, Creatinine 1.01, Estimat Glomerular Filtration Rate 77, BUN/Creatinine Ratio 14, Glucose Level 108H, Calcium Level 9.7, Corrected Calcium 9.5, Magnesium Level 1.7, Total Bilirubin 0.8, Aspartate Amino Transf (AST/SGOT) 10, Alanine Aminotransferase (ALT/SGPT) 14, Alkaline Phosphatase 78, Myoglobin 34.5, Troponin I < 0.028, C-Reactive Protein High Sensitivity 3.80H, B-Type Natriuretic Peptide 143.2H, Total Protein 7.3, Albumin 4.3 03/30/22 18:25: Influenza Type A (RT-PCR) Not Detected, Influenza Type B (RT-PCR) Not Detected, SARS-CoV-2 RNA (RT-PCR) Not Detected 03/30/22 20:13: Lactic Acid Level 0.86 03/30/22 20:16: Urine Color YELLOW, Urine Clarity SL CLOUDY, Urine pH 7.0, Urine Specific Gravit y 1.015L, Urine Protein TRACEH, Urine Glucose (UA) NEGATIVE, Urine Ketones NEGATIVE, Urine Nitrite NEGATIVE, Urine Bilirubin NEGATIVE, Urine Urobilinogen 0.2, Urine Leukocyte Esterase NEGATIVE, Urine RBC (Auto) NEGATIVE, Urine RBC RARE, Urine WBC RARE, Urine Crystals NONE, Urine Bacteria NEGATIVE, Urine Casts NONE, Urine Mucus NEGATIVE, Urine Culture Indicated NO 03/31/22 05:32: Triglycerides Level 40, Cholesterol Level 87, LDL Cholesterol Direct 53, VLDL C holesterol 8, HDL Cholesterol 26L, Thyroid Stimulating Hormone (TSH) 1.75 A/P-Cardiology Assessment/Admission Diagnosis Pneumonia with sepsis - management per medical services PAF, fist noted merlin-CABG. - Holter of 12/21/19 showed NSR with brief runs of SVT/AF, no VT, no significant bradycardia. - Holter of 10/03/20: SSS with PAF with avg heart rate 64 bpm, no pauses of greater than 3 sec - Xarelto for stroke prophylaxis - frequent and marked symptoms each time taken off oral, low-dose amiodarone CAD: - S/p CABG x 2 on 12/22/18, following [place] to LAD, reverse saphenous vein graft to PDA. Cx OM system too small to graft. Sternal plating with titanium plate at the manubrium by Dr. Lee Mild ischemic cardiomyopathy. - Pre-CABG LVEF 45-50% and inf wall hypokinesis (on pre-op card cath by Dr Arteaga). - Echo 01/09/19: LVEF 50-55%, grade 2 diastolic dysfunction, RVSP 15 mmHg, mild to mod MR. - Echo of 12/21/19: LVEF 60-65%, mod dil LA mild MR - Echo of 10-03-20: LVEF 55-60%; PASP 25-30 mmHg Hypertension - fairly well controlled Hyperlipidemia - statin tx - managed by PCP Carotid dz - Carotid u/s of 03-28-21 shows minimal bilat plaque Suspected [place] - refuses studies in the past Discussion and Recomendations Pneumonia with sepsis - management per medical services PAF - Continue home medications including Xarelto once a day - We have tried to take him off amio, but he wishes to continue his current low dose because he notes significant symptoms each time he stops amiodarone Monitor lab - replace electrolytes as indicated HTN - continue home medications - adjust as indicated Further recs will be based on his hospital course We would like to thank Dr. Lubin for this consult NIECY MAHMOOD MD FACP FAC CCDS Mar 31, 2022 15:25
[2022-03-31] MEDS: RIVAROXABAN 20 MG TABLET (XARELTO) PO SCH (17:04)
[2022-03-31 19:18] VITALS: BP 149/64
[2022-04-01 00:05] VITALS: BP 148/65
[2022-04-01] MEDS: RT-ALBUTEROL/IPRATROPIUM 3 ML (DUONEB) VIAL INH SCH ×2 (02:25→06:59)
[2022-04-01] MEDS: CEFEPIME 1,000 MG/NS 50 ML IVPB IV SCH ×4 (02:40→08:05)
[2022-04-01 04:22] VITALS: BP 142/72
[2022-04-01] MEDS: CATHETER FLUSH 10 ML SYR IVP SCH (06:00)
[2022-04-01 06:02] LABS: HEMATOCRIT 37 % (40-54); HEMOGLOBIN 11.8 g/dL (13.3-17.7); MEAN CORPUSCULAR HEMOGLOBIN 27 pg (25-34); MEAN CORPUSCULAR HGB CONC 32 g/dL (32-36); MEAN CORPUSCULAR VOLUME 85 fL (80-99); MEAN PLATELET VOLUME 9.5 fL (9.0-12.2); PLATELET COUNT 209 10^3/uL (130-400); WHITE BLOOD COUNT 7.9 10^3/uL (4.3-11.0)
[2022-04-01 06:09] LABS: ALBUMIN 3.9 GM/DL (3.2-4.5)
[2022-04-01 06:10] LABS: POTASSIUM 3.8 MMOL/L (3.6-5.0)
[2022-04-01 06:11] LABS: CALCIUM 9.3 MG/DL (8.5-10.1)
[2022-04-01 06:12] LABS: TOTAL PROTEIN 6.7 GM/DL (6.4-8.2)
[2022-04-01 06:14] LABS: BILIRUBIN,TOTAL 0.6 MG/DL (0.1-1.0)
[2022-04-01 06:16] LABS: CREATININE SERUM 0.95 MG/DL (0.60-1.30)
[2022-04-01 06:18] LABS: MAGNESIUM 1.8 MG/DL (1.6-2.4)
[2022-04-01 08:00] VITALS: BP 191/79
[2022-04-01] MEDS: AMIODARONE 200 MG (CORDARONE) TAB PO SCH (08:05)
[2022-04-01] MEDS: SENNA W/DOCUSATE (SENOKOT S) TABLET PO SCH (08:06)
--- NOTE | 2022-04-01 08:26 | Progress Note ---
Subjective All Other Systems Reviewed All Other Systems Reviewed: Yes Objective Exam Vital Signs Vital Signs Date Time Temp Pulse Resp B/P (MAP) Pulse Ox O2 Delivery O2 Flow Rate FiO2 04/01/22 08:00 36.7 97 20 191/79 (116) 93 Room Air 04/01/22 07:30 121 04/01/22 06:59 100 Room Air 04/01/22 04:22 37.0 93 18 142/72 (95) 93 Room Air 04/01/22 02:26 97 Room Air 04/01/22 01:00 99 04/01/22 00:05 37.4 97 18 148/65 (92) 92 Room Air 03/31/22 21:58 96 Room Air 03/31/22 20:00 Room Air 03/31/22 19:18 36.8 90 18 149/64 (92) 95 Room Air 03/31/22 19:00 86 03/31/22 18:20 97 Room Air 03/31/22 15:24 36.9 79 18 141/66 (91) 95 Room Air 03/31/22 15:06 Room Air 95 03/31/22 12:28 78 03/31/22 12:01 36.7 93 18 135/61 (85) 96 Room Air 03/31/22 10:19 Room Air 94 03/31/22 08:40 93 I & O 04/01/22 07:00 Intake Total 2070 ml Balance 2070 ml General Appearance: No Apparent Distress, WD/WN HEENT: PERRL/EOMI, TMs Normal, Normal ENT Inspection, Pharynx Normal Neck: Full Range of Motion, Non Tender, Supple Respiratory: Chest Non Tender, Lungs Clear, Normal Breath Sounds, No Accessory Muscle Use, No Respiratory Distress Cardiovascular: Irregularly Irregular Gastrointestinal: Normal Bowel Sounds, No Organomegaly, Non Tender, Soft Rectal: Deferred Back: Normal Inspection, No CVA Tenderness Extremity: Normal Capillary Refill, Normal Range of Motion, Non Tender, No Calf Tenderness, No Pedal Edema Neurologic/Psychiatric: Alert, Oriented x3, No Motor/Sensory Deficits, Normal Mood/Affect Skin: Normal Color, Warm/Dry Lymphatic: No Adenopathy Results Lab Laboratory Tests 04/01/22 05:18: White Blood Count 7.9, Red Blood Count 4.30, Hemoglobin 11.8L, Hematocrit 37L, Mean Corpuscular Volume 85, Mean Corpuscular Hemoglobin 27, Mean Corpuscular Hemoglobin Concent 32, Red Cell Distribution Width 14.3, Platelet Count 209, Mean Platelet Volume 9.5, Sodium Level 141, Potassium Level 3.8, Chloride Level 105, Carbon Dioxide Level 23, Anion Gap 13, Blood Urea Nitrogen 13, Creatinine 0.95, Estimat Glomerular Filtration Rate 82, BUN/Creatinine Ratio 14, Glucose Level 129H, Calcium Level 9.3, Corrected Calcium 9.4, Magnesium Level 1.8, Total Bilirubin 0.6, Aspartate Amino Transf (AST/SGOT) 10, Alanine Aminotransferase (ALT/SGPT) 10, Alkaline Phosphatase 64, Total Protein 6.7, Albumin 3.9 Microbiology 03/30/22 Blood Culture - Preliminary, Resulted No growth 03/30/22 Urine Culture - Final, Complete NO GROWTH Assessment/Plan Assessment/Plan Admission Dx Pneumonia Sepsis Atrial fibrillation Cough Chronic Hypertension Hyperlipidemia Admission Dx Pneumonia Sepsis Atrial fibrillation Cough Chronic Hypertension Hyperlipidemia Clinical Quality Measures Admission Status Admission Dx Pneumonia Sepsis Atrial fibrillation Cough Chronic Hypertension Hyperlipidemia JOSE MANUEL BUCKLEY MD Apr 01, 2022 08:26
[2022-04-01] MEDS ORDERED: meTOprolol TARTRATE 50 MG (LOPRESSOR) TAB PO SCH (09:00)
[2022-04-01] MEDS ORDERED: RIVA20TA2 PO (09:06)
[2022-04-01] MEDS ORDERED: CEFD300C3 PO (09:06)
--- NOTE | 2022-04-01 09:08 | Discharge Inst-Simple/Standard ---
Discharge Inst-Standard Reconcile Patient Problems Problems Reviewed?: Yes Discharge Medications New, Converted or Re-Newed RX: Transmitted to Pharmacy Patient Instructions/Follow Up Plan of Care/Instructions/FU: 1 wk [facility] [address] pierre Activity as Tolerated: Yes Discharge Diet: Avoid Fatty Foods Health Concerns: pneumonia afib hypertension Return to The Hospital For: any recurrent symptoms of pneumonia, shortness of breath, or other life threatening illness or injury Medication List: Active Scripts Active Cefdinir 300 Mg Capsule 300 Mg PO BID Xarelto Tablet (Rivaroxaban) 20 Mg Tablet 20 Mg PO DAILY@1700 Reported Tums (Calcium Carbonate) 200 Mg Calcium (500 Mg) Tab.chew 400-600 Mg PO DAILY PRN Tylenol (Acetaminophen) 325 Mg Tablet 650 Mg PO Q6H PRN Zyrtec (Cetirizine HCl) 10 Mg Tablet 10 Mg PO DAILY PRN Potassium Chloride 10 Meq Tab.er.prt 10 Meq PO DAILY PRN Proair Hfa (Albuterol Sulfate) 1 Puff Puff 2 Puff IH Q4H PRN Metoprolol Tartrate 100 Mg Tablet 100 Mg PO BID Doxazosin Mesylate 2 Mg Tablet 2 Mg PO BID Furosemide 40 Mg Tablet 40 Mg PO DAILY PRN Atorvastatin Calcium 40 Mg Tablet 40 Mg PO HS Amiodarone HCl 200 Mg Tablet 100 Mg PO BID TAKES OF A (200MG) TABS Pantoprazole Sodium 40 Mg Tablet.dr 40 Mg PO DAILY PRN Lab results: Laboratory Tests Test 04/01/22 05:18 Range/Units White Blood Count 7.9 4.3-11.0 10^3/uL Red Blood Count 4.30 4.30-5.52 10^6/uL Hemoglobin 11.8 L 13.3-17.7 g/dL Hematocrit 37 L 40-54 % Mean Corpuscular Volume 85 80-99 fL Mean Corpuscular Hemoglobin 27 25-34 pg Mean Corpuscular Hemoglobin Concent 32 32-36 g/dL Red Cell Distribution Width 14.3 10.0-14.5 % Platelet Count 209 130-400 10^3/uL Mean Platelet Volume 9.5 9.0-12.2 fL Sodium Level 141 135-145 MMOL/L Potassium Level 3.8 3.6-5.0 MMOL/L Chloride Level 105 98-107 MMOL/L Carbon Dioxide Level 23 21-32 MMOL/L Anion Gap 13 5-14 MMOL/L Blood Urea Nitrogen 13 7-18 MG/DL Creatinine 0.95 0.60-1.30 MG/DL Estimat Glomerular Filtration Rate 82 BUN/Creatinine Ratio 14 Glucose Level 129 H 70-105 MG/DL Calcium Level 9.3 8.5-10.1 MG/DL Corrected Calcium 9.4 8.5-10.1 MG/DL Magnesium Level 1.8 1.6-2.4 MG/DL Total Bilirubin 0.6 0.1-1.0 MG/DL Aspartate Amino Transf (AST/SGOT) 10 5-34 U/L Alanine Aminotransferase (ALT/SGPT) 10 0-55 U/L Alkaline Phosphatase 64 40-136 U/L Total Protein 6.7 6.4-8.2 GM/DL Albumin 3.9 3.2-4.5 GM/DL My orders: Orders - JOSE MANUEL BUCKLEY MD Attending Discharge Inpt/Inobs (04/01/22 09:03) JOSE MANUEL BUCKLEY MD Apr 01, 2022 09:08
--- NOTE | 2022-04-01 09:11 | Discharge Summary ---
Diagnosis/Chief Complaint Date of Admission Mar 30, 2022 at 20:10 Date of Discharge Discharge Date: Apr 01, 2022 Discharge Time: 1030 Reason Hospital Visit Pt is a 76 y/o male who was admitted to the hospital with dx of sepsis and pneumonia. Gaston had been feeling slightly unwell, had a cough and congestion which progressively worsened causing him to feel like his heart was skipping. He rep orts that he does not feel well this morning due to the afib acting up. He reports that every time his amiodarone dose is adjusted, he feels bad and has to go back to a low dose of amiodarone He denies chest pain, dizziness, nausea, headache, confusion. He denies feeling feverish, or having chills/shaking. Discharge Summary Discharge Physical Examination Allergies: Coded Allergies: adhesive (Verified Allergy, Intermediate, RASH, 01/09/19) Vitals & I&Os Vital Signs Date Time Temp Pulse Resp B/P (MAP) Pulse Ox O2 Delivery O2 Flow Rate FiO2 04/01/22 08:00 36.7 97 20 191/79 (116) 93 Room Air 03/31/22 15:06 95 03/31/22 07:44 2.00 Hospital Course Pending Labs Laboratory Tests 04/01/22 05:18: White Blood Count 7.9, Red Blood Count 4.30, Hemoglobin 11.8, Hematocrit 37, Mean Corpuscular Volume 85, Mean Corpuscular Hemoglobin 27, Mean Corpuscular Hemoglobin Concent 32, Red Cell Distribution Width 14.3, Platelet Count 209, Mean Platelet Volume 9.5, Sodium Level 141, Potassium Level 3.8, Chloride Level 105, Carbon Dioxide Level 23, Anion Gap 13, Blood Urea Nitrogen 13, Creatinine 0.95, Estimat Glomerular Filtration Rate 82, BUN/Creatinine Ratio 14, Glucose Level 129, Calcium Level 9.3, Corrected Calcium 9.4, Magnesium Level 1.8, Total Bilirubin 0.6, Aspartate Amino Transf (AST/SGOT) 10, Alanine Aminotransferase (ALT/SGPT) 10, Alkaline Phosphatase 64, Total Protein 6.7, Albumin 3.9 Discharge Instructions to patient/family Please see electronic discharge instructions given to patient. Discharge Medications Reviewed and agree with Discharge Medication list on patient's Discharge Instruction sheet JOSE MANUEL BUCKLEY MD Apr 01, 2022 09:11
--- NOTE | 2022-04-01 09:17 | Diagnostic Imaging Report ---
Indication: Pneumonia. Time of Exam: 8:59 AM Correlation is made with prior chest 01/28/2022. Postop changes from median sternotomy are noted. Heart size is stable. There is some minimal linear scarring or atelectasis in the left base. Mild generalized interstitial changes are identified in the left base, similar to the prior exam. Right lung is clear. The pulmonary vascularity is normal. No effusion or pneumothorax identified. The mediastinal configuration is stable. Impression: Mild left basilar interstitial changes similar to prior examination from 2 months earlier, perhaps on a chronic basis. No parenchymal consolidation is identified. There is no effusion or pneumothorax. Dictated by: Dictated on workstation # [id number]
--- NOTE | 2022-04-01 16:43 | Progress Note - Cardiology ---
Cardiology SOAP Progress Note Subjective: Feels well today Wishes to go home Denies cp or palp or syncope or shortness of breath Denies n/v/d Objective: I&O/Vital Signs 04/01/22 04/01/22 04/01/22 04/01/22 06:59 07:30 08:00 08:00 Temp 36.7 Pulse 121 97 Resp 20 B/P (MAP) 191/79 (116) Pulse Ox 100 93 O2 Delivery Room Air Room Air Room Air 04/01/22 00:00 Intake Total 1820 ml Balance 1820 ml Weight (Pounds): 208 Weight (Ounces): 3.0 Weight (Calculated Kilograms): 94.740806 Constitutional: AAO x 3, well-developed, well-nourished Respiratory: No accessory muscle use, No respiratory distress; chest expansion is symmetric, chest is bilaterally symmetric, other (diminished breath sounds lower lobes bilat) Cardiovascular: regular rate-rhythm; No JVD; S1 and S2 Gastrointestional: No tender; soft, round, audible bowel sounds Extremities: no lower extremity edema bilateral Neurologic/Psychiatric: grossly intact (moves all extremities) Skin: normal color, warm/dry; No rash on exposed areas, No ulcerations on exposed areas Results/Procedures: Labs Laboratory Tests 04/01/22 05:18: White Blood Count 7.9, Red Blood Count 4.30, Hemoglobin 11.8L, Hematocrit 37L, Mean Corpuscular Volume 85, Mean Corpuscular Hemoglobin 27, Mean Corpuscular Hemoglobin Concent 32, Red Cell Distribution Width 14.3, Platelet Count 209, Mean Platelet Volume 9.5, Sodium Level 141, Potassium Level 3.8, Chloride Level 105, Carbon Dioxide Level 23, Anion Gap 13, Blood Urea Nitrogen 13, Creatinine 0.95, Estimat Glomerular Filtration Rate 82, BUN/Creatinine Ratio 14, Glucose Level 129H, Calcium Level 9.3, Corrected Calcium 9.4, Magnesium Level 1.8, Total Bilirubin 0.6, Aspartate Amino Transf (AST/SGOT) 10, Alanine Aminotransferase (ALT/SGPT) 10, Alkaline Phosphatase 64, Total Protein 6.7, Albumin 3.9 Microbiology 03/30/22 Blood Culture - Preliminary, Resulted No growth 03/30/22 Urine Culture - Final, Complete NO GROWTH Laboratory Tests 03/30/22 18:15 04/01/22 05:18 A/P: Assessment: Pneumonia with sepsis, improved - management per Medical services PAF, fist noted merlin-CABG. - Holter of 12/21/19 showed NSR with brief runs of SVT/AF, no VT, no significant bradycardia. - Holter of 10/03/20: SSS with PAF with avg heart rate 64 bpm, no pauses of greater than 3 sec - Xarelto for stroke prophylaxis - frequent and marked symptoms each time taken off oral, low-dose amiodarone CAD: - S/p CABG x 2 on 12/22/18, following [place] to LAD, reverse saphenous vein graft to PDA. Cx OM system too small to graft. Sternal plating with titanium plate at the manubrium by Dr. Lee Mild ischemic cardiomyopathy. - Pre-CABG LVEF 45-50% and inf wall hypokinesis (on pre-op card cath by Dr Arteaga). - Echo 01/09/19: LVEF 50-55%, grade 2 diastolic dysfunction, RVSP 15 mmHg, mild to mod MR. - Echo of 12/21/19: LVEF 60-65%, mod dil LA mild MR - Echo of 10-03-20: LVEF 55-60%; PASP 25-30 mmHg Hypertension - fairly well controlled Hyperlipidemia - statin tx - managed by PCP Carotid dz - Carotid u/s of 03-28-21 shows minimal bilat plaque Suspected [place] - refuses studies in the past Plan: Pneumonia with sepsis - management per medical services PAF - Continue home medications including Xarelto once a day - We have tried to take him off amio, but he wishes to continue his current low dose because he notes significant symptoms each time he stops amiodarone Monitor lab - replace electrolytes as indicated HTN - continue home medications - adjust as indicated. BB reinitiated this am Discussed with Dr Lubin this am NIECY MAHMOOD MD FACP FAC CCDS Apr 01, 2022 16:43
== END 2022-04-01 10:30 | disposition home or self-care (01) | DRG 871 ==
LOC: EDUNIT# 18:02 → ER 18:04 → 4TH 20:10
PROVIDERS: ADMIT Family Medicine; ATTEND Family Medicine
DX: A41.9 Sepsis, unspecified organism (principal); J18.9 Pneumonia, unspecified organism; J96.01 Acute respiratory failure with hypoxia; I48.20 Chronic atrial fibrillation, unspecified; I10 Essential (primary) hypertension; Z20.822 Contact with and (suspected) exposure to COVID-19; I25.10 Atherosclerotic heart disease of native coronary artery without angina pectoris; E78.00 Pure hypercholesterolemia, unspecified; K21.9 Gastro-esophageal reflux disease without esophagitis; M19.90 Unspecified osteoarthritis, unspecified site; I25.5 Ischemic cardiomyopathy; I77.9 Disorder of arteries and arterioles, unspecified; G47.33 Obstructive sleep apnea (adult) (pediatric); Z95.1 Presence of aortocoronary bypass graft; Z79.82 Long term (current) use of aspirin; Z79.899 Other long term (current) drug therapy
CPT/HCPCS: 36415; 71045; 71046; 80053; 80061; 81000; 83605; 83735; 83874; 83880; 84145; 84443; 84484; 85007; 85027; 85610; 85730; 86141; 87040; 87088; 87636; 93005; 93041; 94640; 94664; 94760

== ENCOUNTER → 2022-04-07 | Outpatient (CLI) | payer MEDICARE, OTHER ==
[~2022-04-07] MED LIST changes: +ACET325T38 PO; +CALC500T7 PO; +CETI10TA49 PO; +RIVA20TA PO; +RIVA20TA2 PO
--- NOTE | 2022-04-07 11:48 | Diagnostic Imaging Report ---
INDICATION: Cough and pneumonia. COMPARISON: 04/01/2022 Overall heart size and pulmonary vascularity remain within normal limits. Prominent interstitial markings are similar to previous study. No pneumothorax or focal consolidation is identified. There are stable operative findings in the mediastinum. IMPRESSION: Coarse bilateral interstitial markings are similar to previous study and may be chronic in nature. There is no evidence of new abnormality or adverse change. Dictated by: Dictated on workstation # [id number]
== END ==
LOC: RAD 11:13
PROVIDERS: ATTEND Nurse Practitioner Family
DX: J18.9 Pneumonia, unspecified organism (principal)
CPT/HCPCS: 71046

== ENCOUNTER 2022-04-16 17:25 | Inpatient (IN) | payer MEDICARE ==
[~2022-04-16] VITALS: Ht 185 cm; Wt 100.0 kg
[2022-04-16 17:58] LABS: BASOPHILS # (AUTO) 0.1 10^3/uL (0.0-0.1); BASOPHILS % (AUTO) 0 % (0-10); EOSINOPHILS # (AUTO) 0.1 10^3/uL (0.0-0.3); EOSINOPHILS % (AUTO) 0 % (0-10); HEMATOCRIT 39 % (40-54); HEMOGLOBIN 12.4 g/dL (13.3-17.7); LYMPHOCYTES # (AUTO) 0.4 10^3/uL (1.0-4.0); LYMPHOCYTES % (AUTO) 2 % (12-44); MEAN CORPUSCULAR HEMOGLOBIN 27 pg (25-34); MEAN CORPUSCULAR HGB CONC 32 g/dL (32-36); MEAN CORPUSCULAR VOLUME 85 fL (80-99); MEAN PLATELET VOLUME 9.4 fL (9.0-12.2); MONOCYTES % (AUTO) 5 % (0-12); NEUTROPHILS # (AUTO) 17.7 10^3/uL (1.8-7.8); NEUTROPHILS % (AUTO) 91 % (42-75); PLATELET COUNT 278 10^3/uL (130-400); WHITE BLOOD COUNT 19.3 10^3/uL (4.3-11.0)
[2022-04-16] MEDS ORDERED: RT-ALBUTEROL/IPRATROPIUM 3 ML (DUONEB) VIAL INH ONE (18:00)
[2022-04-16 18:02] LABS: CHLORIDE 104 MMOL/L (98-107); POTASSIUM 4.2 MMOL/L (3.6-5.0); SODIUM 138 MMOL/L (135-145)
[2022-04-16 18:03] LABS: CALCIUM 9.4 MG/DL (8.5-10.1)
[2022-04-16 18:04] LABS: GLUCOSE 199 MG/DL (70-105); TOTAL PROTEIN 7.4 GM/DL (6.4-8.2)
[2022-04-16 18:05] LABS: CARBON DIOXIDE 24 MMOL/L (21-32)
[2022-04-16 18:06] LABS: BILIRUBIN,TOTAL 0.5 MG/DL (0.1-1.0)
[2022-04-16 18:08] LABS: ALKALINE PHOSPHATASE 79 U/L (40-136); CREATININE SERUM 1.23 MG/DL (0.60-1.30); GFR ESTIMATED 60
--- NOTE | 2022-04-16 18:08 | Diagnostic Imaging Report ---
EXAMINATION: Chest 1 view. HISTORY: Shortness of breath. COMPARISON: 03/30/2022. FINDINGS: Stable prominent cardiac silhouette with post CABG changes. There is mild prominence of the central pulmonary vasculature with scattered prominent interstitial markings. No focal consolidation or mass. No pleural effusion or pneumothorax. IMPRESSION: Mild cardiomegaly with central pulmonary vascular congestion and scattered pulmonary interstitial markings. Findings may suggest pulmonary edema. No focal consolidation or pleural effusion. Dictated by: Dictated on workstation # [id number]
[2022-04-16 18:09] LABS: BUN/CREATININE RATIO 12
[2022-04-16 18:11] LABS: ALANINE AMINOTRANSFERASE 16 U/L (0-55)
[2022-04-16 18:25] LABS: ABG BASE EXCESS -0.7 MMOL/L (-2.5-2.5); ABG OXYGEN SATURATION 94 % (94-100); ABG PCO2 38 MMHG (35-45); ABG PH 7.41 (7.37-7.43); ABG PO2 68 MMHG (79-93); ABG TCO2 24.4 MMOL/L (21.0-31.0); ALLENS TEST POSITIVE; INSPIRED O2 4 L; PATIENT TEMP 37.6; VENTILATOR NO
[2022-04-16 18:35] LABS: BASOPHILS % (MANUAL) 1 %; LYMPHOCYTES % (MANUAL) 2 %; MONOCYTES % (MANUAL) 5 %; NEUTROPHILS % (MANUAL) 92 %
[2022-04-16 18:36] LABS: RBC MORPH NORMAL
--- NOTE | 2022-04-16 18:44 | ED Respiratory ---
General Chief Complaint: Respiratory Problems Stated Complaint: SOA/LOW O2 Nursing Triage Note: ARRIVED VIA AMB TO ROOM 10 WITH COMPLAINTS OF SOA. STATES HE HAD PNEUMONIA 2 WEEKS AGO. Source: patient Exam Limitations: no limitations (NHUNG LARA APRN) History of Present Illness Date Seen by Provider: Apr 16, 2022 Time Seen by Provider: 18:00 Initial Comments Patient is a 76 yo M who presents to the ED with shortness of breath, exertional intolerance, and cough that worsened over the last handful of days. Pt was admitted to this facility from 03/31-04/01 for pneumonia and hypoxia. Pt was discharged on Cefdinir which he states he was complaint in taking. Denies any chest pain, increased pedal edema, sputum production, fever. States he has been having episodic shortness of breath over the last few months and is unsure of the cause. He was noted to be hypoxic on arrival to the ED and had significant subjective improvement after oxygen was placed via NC. Pt denies any recent known sick contacts. Timing/Duration: getting worse Severity: moderate Prior Episodes/Possible Cause: frequent episodes, unknown cause Modifying Factors: Worse With Activity (NHUNG LARA APRN) Allergies and Home Medications Allergies Coded Allergies: adhesive (Verified Allergy, Intermediate, RASH, 01/09/19) Patient Home Medication List Home Medication List Reviewed: Yes (NHUNG LARA APRN) Acetaminophen (Tylenol) 325 Mg Tablet, 650 MG PO Q6H PRN for PAIN-MILD (1-4), (Reported) Entered as Reported by: QUINCY PEDERSON on 03/31/22 1359 Albuterol Sulfate (Proair Hfa) 1 Puff Puff, 2 PUFF IH Q4H PRN for SHORTNESS OF BREATH, (Reported) Entered as Reported by: EBENEZER CARCAMO on 01/27/22 1513 Amiodarone HCl (Amiodarone HCl) 200 Mg Tablet, 100 MG PO BID, (Reported) Entered as Reported by: GABBY COUGHLIN on 01/09/19 1158 Atorvastatin Calcium (Atorvastatin Calcium) 40 Mg Tablet, 40 MG PO HS, (Reporte d) Entered as Reported by: GABBY COUGHLIN on 01/09/19 1158 Calcium Carbonate (Tums) 200 Mg Calcium (500 Mg) Tab.chew, 400-600 MG PO DAILY PRN for HEARTBURN, (Reported) Entered as Reported by: QUINCY PEDERSON on 03/31/22 1359 Cefdinir (Cefdinir) 300 Mg Capsule, 300 MG PO BID Prescribed by: JOSE MANUEL BUCKLEY on 04/01/22 09 Cetirizine HCl (Zyrtec) 10 Mg Tablet, 10 MG PO DAILY PRN for ALLERGIES, (Reported) Entered as Reported by: QUINCY PEDERSON on 03/31/22 1359 Doxazosin Mesylate (Doxazosin Mesylate) 2 Mg Tablet, 2 MG PO BID, (Reported) Entered as Reported by: EBENEZER CARCAMO on 01/27/22 1513 Furosemide (Furosemide) 40 Mg Tablet, 40 MG PO DAILY PRN for FLUID RETENTION, (Reported) Entered as Reported by: GABBY COUGHLIN on 01/09/19 1158 Metoprolol Tartrate (Metoprolol Tartrate) 100 Mg Tablet, 100 MG PO BID, (Re ported) Entered as Reported by: EBENEZER CARCAMO on 01/27/22 151 Pantoprazole Sodium (Pantoprazole Sodium) 40 Mg Tablet.dr, 40 MG PO DAILY PRN for HEARTBURN, (Reported) Entered as Reported by: FLACO HENDERSON on 06/13/18 0952 Potassium Chloride (Potassium Chloride) 10 Meq Tab.er.prt, 10 MEQ PO DAILY PRN for WHEN TAKING DOSE OF FUROSEMIDE, (Reported) Entered as Reported by: EBENEZER CARCAMO on 01/27/22 151 Rivaroxaban (Xarelto Tablet) 20 Mg Tablet, 20 MG PO DAILY@1700 Prescribed by: JOSE MANUEL BUCKLEY on 04/01/22 09 Review of Systems Review of Systems Constitutional: no symptoms reported EENTM: no symptoms reported Respiratory: cough, dyspnea on exertion, short of breath Cardiovascular: no symptoms reported; No chest pain, No edema, No palpitations, No syncope Gastrointestinal: no symptoms reported Musculoskeletal: no symptoms reported Skin: no symptoms reported Psychiatric/Neurological: No Symptoms Reported (NHUNG LARA APRN) Past Dfnvolv-Orcqvu-Dtlhbp Hx Patient Social History Smoking Status: Former Smoker Substance use?: No Alcohol Use?: No (NHUNG LARA APRN) Immunizations Up To Date Tetanus Booster (TDap): Less than 5yrs Third COVID19 Vaccination Date: 12/29/21 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 BLANCHARD) Cardiac, CABG, Vasectomy Respiratory: Yes Chronic Bronchitis Cardiac: Yes (2 VESSEL CABG) Atrial Fibrillation, Chronic Edema/Swelling, Coronary Artery Disease, High Cholesterol, Hypertension Neurological: No Reproductive Disorders: No Sexually Transmitted Disease: No HIV/AIDS: No Genitourinary: No Gastrointestinal: Yes Gastroesophageal Reflux Musculoskeletal: Yes (RIGHT ANKLE FX 08/2021) Arthritis, Fractures Endocrine: No HEENT: Yes Loss of Vision: Denies Cancer: Yes Skin Did You Recieve Any Treatments: Yes What Type of Treatment Did You: Surgical Intervention Psychosocial: No Integumentary: No Blood Disorders: No Adverse Reaction/Blood Tranf: No (N/A) (NHUNG LARA APRN) Family Medical History FH: leukemia 19 FATHER 19 MOTHER Cancer, Hypertension PAST SURGICAL HISTORY: -2 VESSEL CABG 11/2018 (NHUNG LARA APRN) Physical Exam Vital Signs - First Documented 04/16/22 04/16/22 17:30 17:31 Pulse 81 Resp 18 Pulse Ox 94 O2 Delivery Nasal Cannula O2 Flow Rate 4.00 (RAMESH RODRIGUEZ DO) Capillary Refill : Less Than 3 Seconds (NHUNG LARA APRN) Height: 6'1.00" Weight: 208lbs. 3.0oz. 94.042728io; 35.00 BMI Method:Stated General Appearance: WD/WN, moderate distress HEENT: PERRL/EOMI, normal ENT inspection, TMs normal, pharynx normal Neck: non-tender, full range of motion, supple, normal inspection Respiratory: chest non-tender, lungs clear, normal breath sounds, no respiratory distress, no accessory muscle use, respiratory distress (tachypnea and accessory muscle use; significantly improved and supplemental oxygen started) Cardiovascular: regular rate, rhythm, no edema, no gallop, no JVD, no murmur Gastrointestinal: normal bowel sounds, non tender, soft, no organomegaly, no pulsatile mass Extremities: normal range of motion, non-tender, normal inspection, no pedal edema, no calf tenderness, normal capillary refill Neurologic/Psychiatric: 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 as tested, no motor/sensory deficits, alert, normal mood/affect, oriented x 3 Skin: normal color, warm/dry, cyanosis, cool, damp (NHUNG LARA VAT HOUSE LABORER) Progress/Results/Core Measures Suspected Sepsis SIRS Temperature: Pulse: 81 Respiratory Rate: 18 Laboratory Tests 04/16/22 17:32: White Blood Count 19.3H Blood Pressure / Mean: Laboratory Tests 04/16/22 17:32: Creatinine 1.23, Platelet Count 278, Total Bilirubin 0.5 (NHUNG LARA VAT HOUSE LABORER) Results/Orders Lab Results Laboratory Tests Test 04/16/22 17:32 04/16/22 18:15 Range/Units White Blood Count 19.3 H 4.3-11.0 10^3/uL Red Blood Count 4.59 4.30-5.52 10^6/uL Hemoglobin 12.4 L 13.3-17.7 g/dL Hematocrit 39 L 40-54 % Mean Corpuscular Volume 85 80-99 fL Mean Corpuscular Hemoglobin 27 25-34 pg Mean Corpuscular Hemoglobin Concent 32 32-36 g/dL Red Cell Distribution Width 13.8 10.0-14.5 % Platelet Count 278 130-400 10^3/uL Mean Platelet Volume 9.4 9.0-12.2 fL Immature Granulocyte % (Auto) 1 % Neutrophils (%) (Auto) 91 H 42-75 % Lymphocytes (%) (Auto) 2 L 12-44 % Monocytes (%) (Auto) 5 0-12 % Eosinophils (%) (Auto) 0 0-10 % Basophils (%) (Auto) 0 0-10 % Neutrophils # (Auto) 17.7 H 1.8-7.8 10^3/uL Lymphocytes # (Auto) 0.4 L 1.0-4.0 10^3/uL Monocytes # (Auto) 1.0 0.0-1.0 10^3/uL Eosinophils # (Auto) 0.1 0.0-0.3 10^3/uL Basophils # (Auto) 0.1 0.0-0.1 10^3/uL Immature Granulocyte # (Auto) 0.1 0.0-0.1 10^3/uL Neutrophils % (Manual) 92 % Lymphocytes % (Manual) 2 % Monocytes % (Manual) 5 % Basophils % (Manual) 1 % Blood Morphology Comment NORMAL Sodium Level 138 135-145 MMOL/L Potassium Level 4.2 3.6-5.0 MMOL/L Chloride Level 104 98-107 MMOL/L Carbon Dioxide Level 24 21-32 MMOL/L Anion Gap 10 5-14 MMOL/L Blood Urea Nitrogen 15 7-18 MG/DL Creatinine 1.23 0.60-1.30 MG/DL Estimat Glomerular Filtration Rate 60 BUN/Creatinine Ratio 12 Glucose Level 199 H 70-105 MG/DL Calcium Level 9.4 8.5-10.1 MG/DL Corrected Calcium 9.4 8.5-10.1 MG/DL Total Bilirubin 0.5 0.1-1.0 MG/DL Aspartate Amino Transf (AST/SGOT) 11 5-34 U/L Alanine Aminotransferase (ALT/SGPT) 16 0-55 U/L Alkaline Phosphatase 79 40-136 U/L Troponin I < 0.028 <0.028 NG/ML B-Type Natriuretic Peptide 105.6 H <100.0 PG/ML Total Protein 7.4 6.4-8.2 GM/DL Albumin 4.0 3.2-4.5 GM/DL Blood Gas Puncture Site UNK Blood Gas Patient Temperature 37.6 Arterial Blood pH 7.41 7.37-7.43 Arterial Blood Partial Pressure CO2 38 35-45 MMHG Arterial Blood Partial Pressure O2 68 L 79-93 MMHG Arterial Blood HCO3 23 23-27 MMOL/L Arterial Blood Total CO2 24.4 21.0-31.0 MMOL/L Arterial Blood Oxygen Saturation 94 94-100 % Arterial Blood Base Excess -0.7 -2.5-2.5 MMOL/L Bienvenido Test POSITIVE Blood Gas Ventilator Setting NO Blood Gas Inspired Oxygen 4 L (JENNIFER,RAMESH K DO) Medications Given in ED Current Medications Medications Dose Ordered Sig/Alana Route Start Time Stop Time Status Last Admin Dose Admin Albuterol/ Ipratropium 3 ml ONCE ONCE INH 04/16/22 18:00 04/16/22 18:01 DC 04/16/22 18:13 3 ML Piperacillin Sod/ Tazobactam Sod 4.5 gm/Sodium Chloride 100 ml @ 200 mls/hr ONCE ONCE IV 04/16/22 19:00 04/16/22 19:29 DC 04/16/22 19:23 200 MLS/HR (RAMESH RODRIGUEZ DO) Vital Signs/I&O 04/16/22 04/16/22 04/16/22 17:30 17:31 18:16 Pulse 81 Resp 18 B/P (MAP) Pulse Ox 94 84 93 O2 Delivery Nasal Cannula Nasal Cannula O2 Flow Rate 4.00 4.00 (RAMESH RODRIGUEZ DO) Vital Signs/I&O Capillary Refill : Less Than 3 Seconds (NHUNG LARA APRN) Progress Note : Progress Note Patient is nontoxic and well hydrated on exam. He had significant improvement in WOB after placing supplemental oxygen. Vital signs initially notable for hypoxia. No tachycardia or hypotension appreciated. Labs obtained that are notable for leukocytosis with left shift. CMP reassuring. BNP slightly elevated but improved from prior admission. Chest xray reveals no definitive consolidation. Troponin negative. EKG without acute ischemic changes or arrhythmia. Will admit for further evaluation and treatment. Spoke with hospitalist about giving psuedomonal coverage given persistent pneumonia despite treatment with cephalosporins. They agreed with Zosyn administration and kindly agree to admit. Patient updated on POC and understanding verbalized. (NHUNG LARA APRN) ECG EKG : EKG Time: 18:04 Rate: 78 Rhythm: Normal Sinus Intervals: Normal ECG Impression: Nonspecific Changes (NHUNG LARA APRN) Departure Impression Primary Impression: Pneumonia Qualified Codes: J18.9 - Pneumonia, unspecified organism Additional Impression: Acute respiratory failure with hypoxia Disposition: ADMITTED INPATIENT Condition: Stable Admissions Decision to Admit Reason: Admit from ER (General) Decision to Admit/Date: Apr 16, 2022 Time/Decision to Admit Time: 18:57 (NHUNG LARA APRN) Departure-Patient Inst. Referrals: JOSE MANUEL BUCKLEY MD (PCP/Family) Primary Care Physician ATTENDING PHYSICIAN NOTE: I WAS PHYSICALLY PRESENT ER PHYSICIAN, BUT I WAS NOT INVOLVED IN ANY DECISION MAKING OR ANY CARE OF THIS PATIENT AND I AM NOT COLLABORATING PHYSICIAN. (RAMESH RODRIGUEZ DO) NHUNG LARA APRN Apr 16, 2022 18:44 RAMESH RODRIGUEZ DO Apr 17, 2022 03:46
[2022-04-16] MEDS ORDERED: PIPERACILLIN SODIUM/TAZOBACTAM 4.5 GM in NS (IVPB) 100 ML IV ONE (19:00)
[2022-04-16 21:32] VITALS: BP 163/74
[2022-04-16] MEDS: CATHETER FLUSH 10 ML SYR IVP SCH (22:02)
[2022-04-16] MEDS ORDERED: RT-ALBUTEROL/IPRATROPIUM 3 ML (DUONEB) VIAL INH PRN (22:45)
[2022-04-17] VITALS (7 sets, daily range): BP systolic 135–176; BP diastolic 65–78
[2022-04-17] MEDS: RT-ALBUTEROL/IPRATROPIUM 3 ML (DUONEB) VIAL INH SCH ×6 (02:37→22:19)
[2022-04-17] MEDS: PIPERACILLIN SODIUM/TAZOBACTAM 4.5 GM in NS (IVPB) 100 ML IV SCH ×3 (03:27→16:28)
[2022-04-17] MEDS: CATHETER FLUSH 10 ML SYR IVP SCH ×3 (05:33→20:47)
[2022-04-17] MEDS ORDERED: KRIL1CAP21 PO (08:18)
[2022-04-17] MEDS ORDERED: ASPI-1238 PO (08:18)
[2022-04-17] MEDS ORDERED: RIVA20TA PO (08:18)
--- NOTE | 2022-04-17 08:34 | History & Physical ---
History of Present Illness History of Present Illness Reason for visit/HPI Pt is a 76 y /o male who is known to me from clinic. The patient presented to the hospital with complaint of severe shortness of breath. He reports that he has been eating salt on his foods, turkey sausages, salads with lunch meat in them. He reports that his diet has been improving - low fat diet. He reports that he just wants to figure out what is going on to cause him to have recurrent shortness of breath. Date of Admission Apr 16, 2022 at 19:06 Date Seen by a Provider: Apr 17, 2022 Time Seen by a Provider: 08:30 Attending Physician Jose Manuel Lubin MD Admitting Physician Admitting Physician: Jose Manuel Lubin MD Attending Physician: Jose Manuel Lubin MD Consult Dr. Swanson - cardiology Allergies and Home Medications Allergies Coded Allergies: adhesive (Verified Allergy, Intermediate, RASH, 01/09/19) Patient Home Medication List Home Medication List Reviewed: Yes Acetaminophen (Tylenol) 325 Mg Tablet, 650 MG PO Q6H PRN for PAIN-MILD (1-4), (Reported) Entered as Reported by: QUINCY PEDERSON on 03/31/22 1666 Last Action: Continued Albuterol Sulfate (Proair Hfa) 1 Puff Puff, 2 PUFF IH Q4H PRN for SHORTNESS OF BREATH, (Reported) Entered as Reported by: EBENEZER CARCAMO on 01/27/22 1513 Last Action: Reviewed Amiodarone HCl (Amiodarone HCl) 200 Mg Tablet, 200 MG PO DAILY, (Reported) Entered as Reported by: GABBY COUGHLIN on 01/09/19 1158 Last Action: Continued Aspirin (Aspirin EC) 81 Mg Tablet.dr, 81 MG PO DAILY, (Reported) Entered as Reported by: EBENEZER CARCAMO on 04/17/22 0818 Last Action: Continued Atorvastatin Calcium (Atorvastatin Calcium) 40 Mg Tablet, 40 MG PO HS, (Reported) Entered as Reported by: GABBY COUGHLIN on 01/09/19 1158 Last Action: Continued Calcium Carbonate (Tums) 200 Mg Calcium (500 Mg) Tab.chew, 400-600 MG PO DAILY PRN for HEARTBURN, (Reported) Entered as Reported by: QUINCY PEDERSON on 03/31/22 135 Last Action: Continued Cetirizine HCl (Zyrtec) 10 Mg Tablet, 10 MG PO DAILY PRN for ALLERGIES, (Reported) Entered as Reported by: QUINCY PEDERSON on 03/31/22 1359 Last Action: Continued Doxazosin Mesylate (Doxazosin Mesylate) 2 Mg Tablet, 2 MG PO BID, (Reported) Entered as Reported by: EBENEZER CARCAMO on 01/27/221512 Last Action: Continued Furosemide (Furosemide) 40 Mg Tablet, 40 MG PO DAILY PRN for FLUID RETENTION, (Reported) Entered as Reported by: GABBY COUGHLIN on 01/09/19 1158 Last Action: Reviewed Krill/Om-3/Dha/Epa/Phospho/Ast (Megared [place]-3 Krill Oil Sfgl) 300-90-24 Capsule, 1 EACH PO DAILY, (Reported) Entered as Reported by: EBENEZER CARCAMO on 04/17/22817 Last Action: Reviewed Metoprolol Tartrate (Metoprolol Tartrate) 100 Mg Tablet, 100 MG PO BID, (Reported) Entered as Reported by: EBENEZER CARCAMO on 01/27/221512 Last Action: Converted Pantoprazole Sodium (Pantoprazole Sodium) 40 Mg Tablet.dr, 40 MG PO DAILY PRN for HEARTBURN, (Reported) Entered as Reported by: FLACO HENDERSON on 06/13/18951 Last Action: Continued Potassium Chloride (Potassium Chloride) 10 Meq Tab.er.prt, 10 MEQ PO DAILY PRN for WHEN TAKING DOSE OF FUROSEMIDE, (Reported) Entered as Reported by: EBENEZER CARCAMO on 01/27/221512 Last Action: Reviewed Rivaroxaban (Xarelto) 20 Mg Tablet, 20 MG PO DAILY, (Reported) Entered as Reported by: EBENEZER CARCAMO on 04/17/22817 Last Action: Continued Discontinued Medications Cefdinir (Cefdinir) 300 Mg Capsule, 300 MG PO BID Discontinued Reason: No Longer Taking Prescribed by: JOSE MANUEL LUBIN on 04/01/22905 Last Action: Discontinued Rivaroxaban (Xarelto Tablet) 20 Mg Tablet, 20 MG PO DAILY@1700 Discontinued Reason: No Longer Taking Prescribed by: JOSE MANUEL LUBIN on 04/01/22905 Last Action: Discontinued Past Dvpofux-Fneivj-Jewoun Hx Patient Social History Marrital Status: Living Status: lives at home with spouse Employed/Student: retired Tobacco Use?: No Smoking Status: Former Smoker Smokeless Tobacco Frequency: Never a User Use of E-Cig and/or Vaping dev: No Substance use?: No Alcohol Use?: No Pt feels they are or have been: No Immunizations Up To Date Date of Influenza Vaccine: Apr 27, 2018 Tetanus Booster (TDap): Less Than 5 Years Date of Pneumonia Vaccine: Mar 15, 2012 Seasonal Allergies Seasonal Allergies: No Current Status Advance Directives: No Communicates: Verbally Primary Language: [place] Preferred Spoken Language: [place] Is interpretation needed?: No Past Medical History Surgeries: Cardiac, CABG, Vasectomy Chronic Bronchitis Atrial Fibrillation, Chronic Edema/Swelling, Coronary Artery Disease, High Cholesterol, Hypertension Sexually Transmitted Disease: No HIV/AIDS: No Gastroesophageal Reflux Arthritis, Fractures Loss of Vision: Denies Skin Did You Recieve Any Treatments: Yes What Type of Treatment Did You: Surgical Intervention Blood Disorders: No Adverse Reaction/Blood Tranf: No (N/A) Family Medical History Reviewed Nursing Family Hx FH: leukemia 19 FATHER 19 MOTHER Cancer, Hypertension PAST SURGICAL HISTORY: -2 VESSEL CABG 11/2018 Review of Systems Constitutional: chills EENTM: No throat pain, No throat swelling Respiratory: dyspnea on exertion, short of breath Cardiovascular: No chest pain; edema (trace), Hx of Intervention; No palpitations Gastrointestinal: No abdominal pain, No constipation, No diarrhea, No nausea, No vomiting; other Genitourinary: no symptoms reported Musculoskeletal: no symptoms reported Skin: no symptoms reported Psychiatric/Neurological: Denies Anxiety, Denies Depressed, Denies Weakness All Other Systems Reviewed Negative Unless Noted: Yes Physical Exam Vital Signs Vital Signs - First Documented 04/16/22 04/16/22 04/16/22 17:30 17:31 21:32 Temp 37.7 Pulse 81 Resp 18 B/P (MAP) 163/74 (103) Pulse Ox 94 O2 Delivery Nasal Cannula O2 Flow Rate 4.00 Capillary Refill : Less Than 3 Seconds Height, Weight, BMI Height: 6'1.00" Weight: 208lbs. 3.0oz. 94.392166mt; 29.21 BMI Method:Stated General Appearance: No Apparent Distress, WD/WN HEENT: PERRL/EOMI, Pharynx Normal Neck: Full Range of Motion, Non Tender, Supple Respiratory: Chest Non Tender, Lungs Clear, Normal Breath Sounds, No Accessory Muscle Use, No Respiratory Distress Cardiovascular: Regular Rate, Rhythm, No JVD, Normal Peripheral Pulses, Systolic Murmur Gastrointestinal: Normal Bowel Sounds, Non Tender, Soft Rectal: Deferred Back: Normal Inspection, No Vertebral Tenderness Extremity: Normal Capillary Refill, Normal Range of Motion, Non Tender, No Calf Tenderness, Pedal Edema (trace) Neurologic/Psychiatric: Alert, Oriented x3, No Motor/Sensory Deficits, Normal Mood/Affect Skin: Normal Color, Warm/Dry Lymphatic: No Adenopathy Assessment/Plan Assessment and Plan Pneumonitis - suspect due to Amiodarone Atrial fibrillation Cough Chronic Hypertension Hyperlipidemia Pneumonitis - pt admitted from ER with dx of pneumonia - pt was initiated on pseudomonal coverage for recurrent pneumonia - Zosyn monitor chest xrays intermittently during hospitalization. - breathing treatment with mat protocol. - monitor labs - White count decreased from 19 to10. Pulmonary Edema - Pt to be started on iv lasix, dose this morning - defer further recommendations to Dr. Swanson. - Echo today. Atrial fibrillation - stable - consult to Dr. 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
[2022-04-17] MEDS ORDERED: ACETAMINOPHEN 325 MG TABLET PO PRN (08:45)
[2022-04-17] MEDS ORDERED: FUROSEMIDE 40 MG/4 ML INJ (LASIX) IVP ONE (08:45)
[2022-04-17] MEDS ORDERED: PANTOPRAZOLE 40 MG (PROTONIX) TAB PO PRN (08:45)
[2022-04-17] MEDS ORDERED: CALCIUM CARBONATE 500 MG (TUMS) TAB.CHEW PO PRN (08:45)
[2022-04-17] MEDS ORDERED: AMIODARONE 200 MG (CORDARONE) TAB PO SCH (09:00)
[2022-04-17 09:14] LABS: HEMATOCRIT 36 % (40-54); HEMOGLOBIN 11.1 g/dL (13.3-17.7); MEAN CORPUSCULAR HEMOGLOBIN 27 pg (25-34); MEAN CORPUSCULAR HGB CONC 31 g/dL (32-36); MEAN CORPUSCULAR VOLUME 87 fL (80-99); MEAN PLATELET VOLUME 9.2 fL (9.0-12.2); PLATELET COUNT 231 10^3/uL (130-400); WHITE BLOOD COUNT 10.6 10^3/uL (4.3-11.0)
[2022-04-17] MEDS ORDERED: LORATADINE (CLARITIN) 10 MG TAB PO PRN (09:15)
[2022-04-17] MEDS: meTOprolol TARTRATE 50 MG (LOPRESSOR) TAB PO SCH ×2 (09:21→19:56)
[2022-04-17] MEDS: ASPIRIN E.C. 81 MG (ECOTRIN) TAB PO SCH (09:21)
[2022-04-17] MEDS: RIVAROXABAN 20 MG TABLET (XARELTO) PO SCH (09:21)
[2022-04-17] MEDS: doxAzosin 2 MG (CARDURA) TAB PO SCH ×2 (09:21→19:55)
[2022-04-17 09:32] LABS: ALBUMIN 3.4 GM/DL (3.2-4.5); BILIRUBIN,TOTAL 1.3 MG/DL (0.1-1.0); CALCIUM 9.1 MG/DL (8.5-10.1); CREATININE SERUM 1.21 MG/DL (0.60-1.30); MAGNESIUM 1.7 MG/DL (1.6-2.4); POTASSIUM 3.7 MMOL/L (3.6-5.0); TOTAL PROTEIN 6.5 GM/DL (6.4-8.2)
--- NOTE | 2022-04-17 09:34 | Diagnostic Imaging Report ---
EXAMINATION: Chest 2 view HISTORY: Fluid overload, pneumonia COMPARISON: 04/07/2022 FINDINGS: Heart size and pulmonary vasculature are normal. There are mild interstitial opacities within the mid and lower lungs. No pleural effusion or pneumothorax. Degenerative changes of the thoracic spine. Osseous structures are otherwise intact. Surgical changes from median sternotomy and CABG. IMPRESSION: 1. Mild interstitial opacities within the lower lungs could be seen with atelectasis, pulmonary edema, or atypical infection. Dictated by: Dictated on workstation # [id number]
--- NOTE | 2022-04-17 15:08 | Consultation-Cardiology ---
HPI-Cardiology Cardiology Consultation: Date of Consultation 04/17/22 Time Seen by a Provider: 11:30 Date of Admission Attending Physician Jose Manuel Lubin MD Admitting Physician Admitting Physician: Jose Manuel Lubin MD Attending Physician: Jose Manuel Lubin MD Consulting Physician NIECY MAHMOOD MD, MA, FACP, FACC, FSCAI, CCDS Physician requesting Card consult: Dr Lubin HPI: Chief Complaint: Shortness of breath 76 yo man with relatively sudden onset of shortness of breath associated with shaking chills who was admitted to Dr Lubin on 04/16/22. Shortness of breath now improved. No cp or palp or syncope or swelling. No n/v/d. Gen weakness and malaise. No focal weakness. Has lately been trying to lose wgt, he says, and has had some success with that Review of Systems-Cardiology Review of Systems Constitutional: As described under HPI Eyes: No vision change Ears/Nose/Throat: No ear discharge, No nasal drainage, No recent hearing loss Respiratory: As described under HPI Cardiovascular: As described under HPI Gastrointestinal: No diarrhea, No difficulty swallowing, No nausea, No vomiting Genitourinary: No dysuria, No hematuria Musculoskeletal: No joint pain Skin: No rash, No ulcerations Psychiatric/Neurological: No seizure, No focal weakness, No syncope Hematologic: No bleeding abnormalities NLB-Forxia-Urjgof Hx Patient Social History Smoking Status: Former Smoker 2nd Hand Smoke Exposure: No Have you traveled recently?: No Alcohol Use?: No Pt feels they are or have been: No Immunizations Up To Date Tetanus Booster (TDap): Less than 5yrs Date of Pneumonia Vaccine: Mar 15, 2012 Date of Influenza Vaccine: Apr 27, 2018 Past Medical History PMH As described under Assessment. Family Medical History Family Medical History: does not report fam h/o early CAD or SCD Family History: FH: leukemia 19 FATHER 19 MOTHER Allergies and Home Medications Allergies Coded Allergies: adhesive (Verified Allergy, Intermediate, RASH, 01/09/19) Patient Home Medication List Home Medication List Reviewed: Yes Acetaminophen (Tylenol) 325 Mg Tablet, 650 MG PO Q6H PRN for PAIN-MILD (1-4), (Reported) Entered as Reported by: QUINCY PEDERSON on 03/31/22 1898 Last Action: Continued Albuterol Sulfate (Proair Hfa) 1 Puff Puff, 2 PUFF IH Q4H PRN for SHORTNESS OF BREATH, (Reported) Entered as Reported by: EBENEZER CARCAMO on 01/27/221512 Last Action: Reviewed Amiodarone HCl (Amiodarone HCl) 200 Mg Tablet, 200 MG PO DAILY, (Reported) Entered as Reported by: GABBY COUGHLIN on 01/09/191157 Last Action: Continued Aspirin (Aspirin EC) 81 Mg Tablet.dr, 81 MG PO DAILY, (Reported) Entered as Reported by: EBENEZER CARCAMO on 04/17/22817 Last Action: Continued Atorvastatin Calcium (Atorvastatin Calcium) 40 Mg Tablet, 40 MG PO HS, (Reported) Entered as Reported by: GABBY COUGHLIN on 01/09/191157 Last Action: Continued Calcium Carbonate (Tums) 200 Mg Calcium (500 Mg) Tab.chew, 400-600 MG PO DAILY PRN for HEARTBURN, (Reported) Entered as Reported by: QUINCY PEDERSON on 03/31/221358 Last Action: Continued Cetirizine HCl (Zyrtec) 10 Mg Tablet, 10 MG PO DAILY PRN for ALLERGIES, (Reported) Entered as Reported by: QUINCY PEDERSON on 03/31/221358 Last Action: Continued Doxazosin Mesylate (Doxazosin Mesylate) 2 Mg Tablet, 2 MG PO BID, (Reported) Entered as Reported by: EBENEZER CARCAMO on 01/27/221512 Last Action: Continued Furosemide (Furosemide) 40 Mg Tablet, 40 MG PO DAILY PRN for FLUID RETENTION, (Reported) Entered as Reported by: GABBY COUGHLIN on 01/09/191157 Last Action: Reviewed Krill/Om-3/Dha/Epa/Phospho/Ast (Megared Sentinel-3 Krill Oil Sfgl) 300-90-24 Capsule, 1 EACH PO DAILY, (Reported) Entered as Reported by: EBENEZER CARCAMO on 04/17/22817 Last Action: Reviewed Metoprolol Tartrate (Metoprolol Tartrate) 100 Mg Tablet, 100 MG PO BID, (Reported) Entered as Reported by: EBENEZER CARCAMO on 01/27/221512 Last Action: Converted Pantoprazole Sodium (Pantoprazole Sodium) 40 Mg Tablet.dr, 40 MG PO DAILY PRN for HEARTBURN, (Reported) Entered as Reported by: FLACO HENDERSON on 06/13/18 0952 Last Action: Continued Potassium Chloride (Potassium Chloride) 10 Meq Tab.er.prt, 10 MEQ PO DAILY PRN for WHEN TAKING DOSE OF FUROSEMIDE, (Reported) Entered as Reported by: EBENEZER CARCAMO on 01/27/22 1513 Last Action: Reviewed Rivaroxaban (Xarelto) 20 Mg Tablet, 20 MG PO DAILY, (Reported) Entered as Reported by: EBENEZER CARCAMO on 04/17/22 0818 Last Action: Continued Discontinued Medications Cefdinir (Cefdinir) 300 Mg Capsule, 300 MG PO BID Discontinued Reason: No Longer Taking Prescribed by: JOSE MANUEL LUBIN on 04/01/22905 Last Action: Discontinued Rivaroxaban (Xarelto Tablet) 20 Mg Tablet, 20 MG PO DAILY@1700 Discontinued Reason: No Longer Taking Prescribed by: JOSE MANUEL LUBIN on 04/01/22905 Last Action: Discontinued Physical Exam-Cardiology Physical Exam Vital Signs/I&O 04/17/22 04/17/22 04/17/22 04/17/22 03:55 08:00 08:01 08:03 Temp 36.4 36.5 Pulse 64 59 Resp 16 19 B/P (MAP) 142/69 (93) 176/78 (110) Pulse Ox 98 97 97 97 O2 Delivery Nasal Cannula Nasal Cannula Nasal Cannula Nasal Cannula O2 Flow Rate 3.50 2.00 3.50 3.50 04/17/22 04/17/22 08:08 12:19 Temp 36.7 Pulse 55 Resp 18 B/P (MAP) 135/65 (88) Pulse Ox 96 O2 Delivery Nasal Cannula Nasal Cannula O2 Flow Rate 2.00 2.00 04/17/22 00:00 Intake Total 100 ml Balance 100 ml Capillary Refill : Less Than 3 Seconds Constitutional: AAO x 3, well-developed, well-nourished HEENT: EOMI, hearing is well preserved; No xanthelasmas are seen Neck: carotid pulses are 2 + bilaterally, with good upstrokes Respiratory: No accessory muscle use; other (good, bilateral air entry) Cardiovascular: regular rate-rhythm, S1 and S2, systolic murmur (soft MIKIE at card base) Gastrointestinal: No tender, No guarding, No rebound; audible bowel sounds Extremities: No clubbing, No cyanosis, No significant edema Neurologic/Psychiatric: oriented x 3, other (moves all limbs equally) Skin: No rash on exposed areas, No ulcerations on exposed areas Data Review Labs Laboratory Tests 04/16/22 17:32: White Blood Count 19.3H, Red Blood Count 4.59, Hemoglobin 12.4L, Hematocrit 39L, Mean Corpuscular Volume 85, Mean Corpuscular Hemoglobin 27, Mean Corpuscular Hemoglobin Concent 32, Red Cell Distribution Width 13.8, Platelet Count 278, Mean Platelet Volume 9.4, Immature Granulocyte % (Auto) 1, Neutrophils (%) (Auto) 91H, Lymphocytes (%) (Auto) 2L, Monocytes (%) (Auto) 5, Eosinophils (%) (Auto) 0, Basophils (%) (Auto) 0, Neutrophils # (Auto) 17.7H, Lymphocytes # (Auto) 0.4L, Monocytes # (Auto) 1.0, Eosinophils # (Auto) 0.1, Basophils # (Auto) 0.1, Immature Granulocyte # (Auto) 0.1, Neutrophils % (Manual) 92, Lymphocytes % (Manual) 2, Monocytes % (Manual) 5, Basophils % (Manual) 1, Blood Morphology Comment NORMAL, Sodium Level 138, Potassium Level 4.2, Chloride Level 104, Carbon Dioxide Level 24, Anion Gap 10, Blood Urea Nitrogen 15, Creatinine 1.23, Estimat Glomerular Filtration Rate 60, BUN/Creatinine Ratio 12, Glucose Level 199H, Calcium Level 9.4, Corrected Calcium 9.4, Total Bilirubin 0.5, Aspartate Amino Transf (AST/SGOT) 11, Alanine Aminotransferase (ALT/SGPT) 16, Alkaline Phosphatase 79, Troponin I < 0.028, B-Type Natriuretic Peptide 105.6H, Total Protein 7.4, Albumin 4.0 04/16/22 18:15: Blood Gas Puncture Site UNK, Blood Gas Patient Temperature 37.6, Arterial Blood pH 7.41, Arterial Blood Partial Pressure CO2 38, Arterial Blood Partial Pressure O2 68L, Arterial Blood HCO3 23, Arterial Blood Total CO2 24.4, Arterial Blood Oxygen Saturation 94, Arterial Blood Base Excess -0.7, Bienvenido Test POSITIVE, Blood Gas Ventilator Setting NO, Blood Gas Inspired Oxygen 4 L 04/17/22 08:57: White Blood Count 10.6, Red Blood Count 4.16L, Hemoglobin 11.1L, Hematocrit 36L, Mean Corpuscular Volume 87, Mean Corpuscular Hemoglobin 27, Mean Corpuscular Hemoglobin Concent 31L, Red Cell Distribution Width 13.9, Platelet Count 231, Mean Platelet Volume 9.2, Sodium Level 138, Potassium Level 3.7, Chloride Level 103, Carbon Dioxide Level 26, Anion Gap 9, Blood Urea Nitrogen 15, Creatinine 1.21, Estimat Glomerular Filtration Rate 62, BUN/Creatinine Ratio 12, Glucose Level 153H, Calcium Level 9.1, Corrected Calcium 9.6, Total Bilirubin 1.3H, Aspartate Amino Transf (AST/SGOT) 8, Alanine Aminotransferase (ALT/SGPT) 14, Alkaline Phosphatase 59, Total Protein 6.5, Albumin 3.4, Magnesium Level 1.7 Laboratory Tests 04/16/22 17:32 04/17/22 08:57 A/P-Cardiology Assessment/Admission Diagnosis Shortness of breath - probably at least partly due to ac diastolic CHF ?pneumonitis PAF, fist noted merlin-CABG. 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 ALEXANDER to LAD, reverse saphenous vein graft to PDA. Cx OM system too small to graft. Sternal plating with titanium plate at the manubrium by Dr. Lee Mild ischemic cardiomyopathy. - Pre-CABG LVEF 45-50% and inf wall hypokinesis (on pre-op card cath by Dr Arteaga). - Echo 01/09/19: LVEF 50-55%, grade 2 diastolic dysfunction, RVSP 15 mmHg, mild to mod MR. - Echo of 12/21/19: LVEF 60-65%, mod dil LA mild MR - Echo of 10-03-20: LVEF 55-60%; PASP 25-30 mmHg - Echo on 04/17/22: LVEF 60-65%, mild to mod enlargement of the atria Hypertension - labile Hyperlipidemia - statin tx - managed by PCP Carotid dz - Carotid u/s of 03-28-21 shows minimal bilat plaque Suspected [place] - refuses studies in the past Discussion and Recomendations * Add daily furosemide + K (to treat decomp CHF) * Advised sleep studies ([place] suspected) * D/c amiodarone (cannot exclude amiodarone-induced pulm issues) * Continue beta-odilia for htn and and to control heart rate during AF * Add amlodipine for better bp control * Continue OAC for stroke prophylaxis * Discussed with Dr Lubin this am * Dr Ambrose covering this weekend * F/u at our office next week if d/c'd over the weekend NIECY MAHMOOD MD FACP FAC CCDS Apr 17, 2022 15:08
[2022-04-18] MEDS: PIPERACILLIN SODIUM/TAZOBACTAM 4.5 GM in NS (IVPB) 100 ML IV SCH ×2 (01:19→08:25)
[2022-04-18] MEDS: RT-ALBUTEROL/IPRATROPIUM 3 ML (DUONEB) VIAL INH SCH ×3 (02:58→10:16)
[2022-04-18 03:17] VITALS: BP 167/75
[2022-04-18] MEDS: CATHETER FLUSH 10 ML SYR IVP SCH (05:18)
[2022-04-18 05:31] LABS: HEMATOCRIT 34 % (40-54); HEMOGLOBIN 10.6 g/dL (13.3-17.7); MEAN CORPUSCULAR HEMOGLOBIN 27 pg (25-34); MEAN CORPUSCULAR HGB CONC 32 g/dL (32-36); MEAN CORPUSCULAR VOLUME 85 fL (80-99); MEAN PLATELET VOLUME 9.4 fL (9.0-12.2); PLATELET COUNT 225 10^3/uL (130-400); WHITE BLOOD COUNT 7.5 10^3/uL (4.3-11.0)
[2022-04-18 05:52] LABS: ALBUMIN 3.4 GM/DL (3.2-4.5); CREATININE SERUM 1.25 MG/DL (0.60-1.30); POTASSIUM 3.9 MMOL/L (3.6-5.0); TOTAL PROTEIN 6.4 GM/DL (6.4-8.2)
[2022-04-18] MEDS ORDERED: KCL 20 MEQ TAB (K-DUR) PO SCH (07:00)
[2022-04-18 07:29] VITALS: BP 186/82
[2022-04-18] MEDS: doxAzosin 2 MG (CARDURA) TAB PO SCH (08:25)
[2022-04-18] MEDS: ASPIRIN E.C. 81 MG (ECOTRIN) TAB PO SCH (08:25)
[2022-04-18] MEDS: meTOprolol TARTRATE 50 MG (LOPRESSOR) TAB PO SCH (08:25)
[2022-04-18] MEDS: RIVAROXABAN 20 MG TABLET (XARELTO) PO SCH (08:25)
[2022-04-18] MEDS ORDERED: amLODIPine 5 MG (NORVASC) TAB PO SCH (09:00)
[2022-04-18] MEDS ORDERED: FUROSEMIDE 40 MG (LASIX) TAB PO SCH (09:00)
--- NOTE | 2022-04-18 09:46 | Diagnostic Imaging Report ---
INDICATION: Pneumonia. Comparison is made with prior exam of 04/17/2022. FINDINGS: The heart size is normal. There are patchy bibasilar infiltrates. No pleural effusion or pneumothorax. Mediastinum is unremarkable. There has been previous median sternotomy. IMPRESSION: Patchy bibasilar pulmonary infiltrates, left greater than right. Dictated by: Dictated on workstation # [id number]
[2022-04-18] MEDS ORDERED: AMOX1TAB12 PO (11:07)
[2022-04-18] MEDS ORDERED: AMLO-250 PO (11:07)
--- NOTE | 2022-04-18 11:10 | Discharge Inst-Simple/Standard ---
Discharge Inst-Standard Discharge Medications New, Converted or Re-Newed RX: Transmitted to Pharmacy Patient Instructions/Follow Up Plan of Care/Instructions/FU: Please continue to take your medications as written. Please follow up with your primary care doctor to follow up this hospital stay. Activity as Tolerated: Yes Discharge Diet: Cardiac Diet Return to The Hospital For: Chest pain, shortness of breath, fever, weakness, if you feel you are getting worse. KAREL ESQUEDA MD Apr 18, 2022 11:10
--- NOTE | 2022-04-18 11:11 | Discharge Summary ---
Diagnosis/Chief Complaint Date of Admission Apr 16, 2022 at 19:06 Date of Discharge Discharge Date: Apr 18, 2022 Primary Care Ava Lubin MD Discharge Summary Discharge Physical Exam Allergies: Coded Allergies: adhesive (Verified Allergy, Intermediate, RASH, 01/09/19) Vitals & I&Os Vital Signs Date Time Temp Pulse Resp B/P (MAP) Pulse Ox O2 Delivery O2 Flow Rate FiO2 04/18/22 07:45 95 Room Air 0.00 04/18/22 07:29 36.4 62 18 186/82 (116) Hospital Course Labs (last 24 hrs) Laboratory Tests 04/18/22 05:17: White Blood Count 7.5, Red Blood Count 3.96L, Hemoglobin 10.6L, Hematocrit 34L, Mean Corpuscular Volume 85, Mean Corpuscular Hemoglobin 27, Mean Corpuscular Hemoglobin Concent 32, Red Cell Distribution Width 14.2, Platelet Count 225, Mean Platelet Volume 9.4, Sodium Level 138, Potassium Level 3.9, Chloride Level 104, Carbon Dioxide Level 23, Anion Gap 11, Blood Urea Nitrogen 17, Creatinine 1.25, Estimat Glomerular Filtration Rate 59, BUN/Creatinine Ratio 14, Glucose Level 106H, Calcium Level 9.0, Corrected Calcium 9.5, Total Bilirubin 1.0, Aspartate Amino Transf (AST/SGOT) 9, Alanine Aminotransferase (ALT/SGPT) 14, Alkaline Phosphatase 55, Total Protein 6.4, Albumin 3.4 Patient resulted labs reviewed. Pending Labs Laboratory Tests 04/18/22 05:17: White Blood Count 7.5, Red Blood Count 3.96, Hemoglobin 10.6, Hematocrit 34, Mean Corpuscular Volume 85, Mean Corpuscular Hemoglobin 27, Mean Corpuscular He moglobin Concent 32, Red Cell Distribution Width 14.2, Platelet Count 225, Mean Platelet Volume 9.4, Sodium Level 138, Potassium Level 3.9, Chloride Level 104, Carbon Dioxide Level 23, Anion Gap 11, Blood Urea Nitrogen 17, Creatinine 1.25, Estimat Glomerular Filtration Rate 59, BUN/Creatinine Ratio 14, Glucose Level 106, Calcium Level 9.0, Corrected Calcium 9.5, Total Bilirubin 1.0, Aspartate Amino Transf (AST/SGOT) 9, Alanine Aminotransferase (ALT/SGPT) 14, Alkaline Phosphatase 55, Total Protein 6.4, Albumin 3.4 Discharge Home Medications: Active Scripts Active Amox Tr-K Clv 875-125 mg Tab (Amoxicillin/Potassium Clav) 875 Mg-125 Mg Tablet 1 Each PO BID Amlodipine Besylate 5 Mg Tablet 5 Mg PO DAILY Reported Megared Guinda-3 Krill Oil Sfgl (Krill/Om-3/Dha/Epa/Phospho/Ast) 300-90-24 Capsule 1 Each PO DAILY Aspirin EC (Aspirin) 81 Mg Tablet.dr 81 Mg PO DAILY Xarelto (Rivaroxaban) 20 Mg Tablet 20 Mg PO DAILY Tums (Calcium Carbonate) 200 Mg Calcium (500 Mg) Tab.chew 400-600 Mg PO DAILY PRN Tylenol (Acetaminophen) 325 Mg Tablet 650 Mg PO Q6H PRN Zyrtec (Cetirizine HCl) 10 Mg Tablet 10 Mg PO DAILY PRN Potassium Chloride 10 Meq Tab.er.prt 10 Meq PO DAILY PRN Proair Hfa (Albuterol Sulfate) 1 Puff Puff 2 Puff IH Q4H PRN Metoprolol Tartrate 100 Mg Tablet 100 Mg PO BID Doxazosin Mesylate 2 Mg Tablet 2 Mg PO BID Furosemide 40 Mg Tablet 40 Mg PO DAILY PRN Atorvastatin Calcium 40 Mg Tablet 40 Mg PO HS Amiodarone HCl 200 Mg Tablet 200 Mg PO DAILY Pantoprazole Sodium 40 Mg Tablet.dr 40 Mg PO DAILY PRN Instructions to patient/family Please see electronic discharge instructions given to patient. KAREL ESQUEDA MD Apr 18, 2022 11:11
[2022-04-18 11:31] VITALS: BP 187/79
[2022-04-18 11:45] VITALS: BP 186/82
== END 2022-04-18 11:47 | disposition home or self-care (01) | DRG 193 ==
LOC: EDUNIT# 17:25 → ER 17:27 → 4TH 19:06
PROVIDERS: ADMIT Family Medicine; ATTEND Family Medicine
DX: J18.9 Pneumonia, unspecified organism (principal); J96.01 Acute respiratory failure with hypoxia; I50.33 Acute on chronic diastolic (congestive) heart failure; J81.1 Chronic pulmonary edema; Z87.891 Personal history of nicotine dependence; Z95.1 Presence of aortocoronary bypass graft; I25.10 Atherosclerotic heart disease of native coronary artery without angina pectoris; E78.00 Pure hypercholesterolemia, unspecified; K21.9 Gastro-esophageal reflux disease without esophagitis; M19.90 Unspecified osteoarthritis, unspecified site; Z79.82 Long term (current) use of aspirin; Z79.899 Other long term (current) drug therapy; T46.2X5A Adverse effect of other antidysrhythmic drugs, initial encounter; E78.5 Hyperlipidemia, unspecified; R05.9 Cough, unspecified; I48.0 Paroxysmal atrial fibrillation; I77.9 Disorder of arteries and arterioles, unspecified; I25.5 Ischemic cardiomyopathy; I11.0 Hypertensive heart disease with heart failure
CPT/HCPCS: 36415; 36600; 71045; 71046; 80053; 82805; 83735; 83880; 84484; 85007; 85027; 93005; 93041; 93306; 94640; 94664; 94760